=== PATIENT | female | born 2000 | race Caucasian/White ===

== ENCOUNTER 2023-07-15 11:37 | Emergency (ER) | payer OTHER, SELFPAY ==
[2023-07-15 11:43] VITALS: BP 143/88; PULSE 107; TEMP 36.7; O2SAT 99; BMI 27.8
--- NOTE | 2023-07-15 11:54 | ECG_ITS ---
[facility] Test Date: 2023-07-15 Pat Name: SANDY KELLEY Department: Room: - Gender: Female Rec Therapist: : 2000 Requested By: [id number] Order Number: [id number] Reading MD: TUSHAR FRENCH Measurements Intervals [place] Rate: 89 P: 55 IL: 162 QRS: 71 QRSD: 88 T: 17 QT: 340 QTc: 387 Interpretive Statements 1100 Sinus rhythm 1102 Sinus arrhythmia 9110 normal ECG No previous ECG available for comparison Electronically Signed On 07-17-2023 10:44:52 EDT by TUSHAR FRENCH
--- NOTE | 2023-07-15 11:58 | ED.SYNCOPE1 ---
HPI - Syncope General Chief Complaint: Headache Stated Complaint: POSSIBLE SEIZURE 2 DAYS AGO, HIT HEAD Time Seen by Provider: 07/15/23 11:41 Source: patient Mode of arrival: walk-in Limitations: no limitations History of Present Illness HPI narrative: 22-year-old female to the emergency department with chief complaint of episode of loss of consciousness. Two days ago the patient reports that she was getting off the couch to go take a shower when she stood up she felt lightheaded. Patient attempted to walk into the bathroom to get in the shower and lost consciousness and fell to the ground. Her friend who accompanies her and was witness to this and says that she hit her head on the ground. She was out for a few seconds and immediately returned back to her baseline. During a few seconds she was on the ground there were some jerking of the upper and lower extremities. Patient reports that she has had episodes of passing out before but they have never witnessed. She saw her primary care doctor who referred her to the emergency department for evaluation. Since she had her head she reports she has had a mild dull headache and some photophobia. She denies any vision changes, numbness, weakness, tingling, walking, difficulty speaking. She denies any other medical problems. She has no history of seizures. Related Data Home Medications ?Medication ?Instructions ?Recorded ?Confirmed albuterol sulfate 90 mcg/actuation 2 puff inhalation Q6H PRN 07/15/23 07/15/23 aerosol inhaler shortness of breath or wheezing Allergies Allergy/AdvReac Type Severity Reaction Status Date / Time sulfamethoxazole AdvReac Mild Unknown Verified 07/15/23 11:56 [From Bactrim] trimethoprim [From Bactrim] AdvReac Mild Unknown Verified 07/15/23 11:56 Review of Systems ROS Status of ROS 10 or more systems reviewed and unremarkable except as noted in history and below [facility] Medical History (Updated 07/15/23 @ 12:14 by Angel Rubio MD) Asthma ?J45.909 - Unspecified asthma, uncomplicated (ICD-10) Exam Narrative Exam Narrative: VITALS: I have reviewed the triage vital signs. GENERAL: Well developed, well appearing adult in no acute distress. NEURO: Alert and oriented x4. Moves all extremities. Face is symmetric and expressive. Cranial nerves II through XII grossly intact as tested. Muscular strength and sensation grossly intact upper and lower extremities bilaterally. No dysarthria. No aphasia. No ataxia. Normal gait. NIHSS 0. EYES: PERRL. No scleral icterus or conjunctival injection. No discharge. HENT: Normocephalic, atraumatic. Hearing is grossly intact. Nares grossly patent and without discharge. Mucous membranes moist. NECK: No JVD. Patient moves neck without restriction. No midline cervical tenderness. CARDIO: Rhythm regular. Normal rate. No murmur, rub, or gallop. Pulses equal bilaterally in the upper and lower extremity. No lower extremity edema. PULM: Lungs clear to auscultation in all hays. No wheezes, rales, or rhonchi. No conversational dyspnea. No splinting, stridor, or accessory muscle use. GI/: Abdomen is soft and non-tender. Normoactive bowel sounds. EXTREMITIES: Symmetric muscle bulk. No joint swelling. No clubbing, cyanosis, or deformity. SKIN: Warm and dry. Normal turgor. No rash or lesions appreciated. PSYCH: Mood, affect, and interaction is appropriate to the setting. Constitutional Vital Signs, click to edit/add: Last Vital Signs Temp 98.1 F 07/15/23 11:43 Pulse 71 07/15/23 12:43 Resp 18 07/15/23 12:43 BP 108/59 07/15/23 12:43 Pulse Ox 98 07/15/23 12:43 O2 Del Method Room Air 07/15/23 12:43 Course Vital Signs Vital signs: Vital Signs Temperature 98.1 F 07/15/23 11:43 Pulse Rate 107 H 07/15/23 11:43 Respiratory Rate 18 07/15/23 11:43 Blood Pressure 143/88 H 07/15/23 11:43 Pulse Oximetry 99 07/15/23 11:43 Oxygen Delivery Method Room Air 07/15/23 11:43 Temperature 98.1 F 07/15/23 11:43 Pulse Rate 71 07/15/23 12:43 Respiratory Rate 18 07/15/23 12:43 Blood Pressure 108/59 07/15/23 12:43 Pulse Oximetry 98 07/15/23 12:43 Oxygen Delivery Method Room Air 07/15/23 12:43 MDM - Syncope MDM Narrative Medical decision making narrative: 22-year-old female to the emergency department with chief complaint of loss of consciousness episode at home two days ago. Vitals are stable, the patient is afebrile. Neurologic examination is nonfocal. Her cervical spine is cleared by clinical decision rule. Given her ongoing headache and photophobia with severe symptoms bring her to the Emergency Room we'll proceed with a CT scan of her head. Basic labs ordered. Fluids are ordered. Patient agrees with this plan. Patient and her friend are concerned that the event the other day may have been a seizure episode. The preceding symptoms, episode itself some more like a syncopal episode than a seizure. I discussed with the patient that I believe that the odds that this was a seizure is very unlikely. CBC and chemistry are unremarkable. CT scan of her head is without acute findings. Patient feels improved after fluids. She easily and without difficulty. Discussed with patient likely syncopal episode. Sounds as though this may be a semi-recurrent issue for this patient. She'll be referred back to her PCP for further workup. Discussed rest, return precautions. All questions were answered. The patient was discharged home. Medical Records Attestation: I reviewed the patient's medical records. Lab Data Attestation: I reviewed the patient's lab results. Labs: Lab Results 07/15/23 Range/Units 12:05 WBC 8.8 (4.0-11.0) 10^3/uL RBC 4.59 (4.20-5.40) 10^6/uL Hgb 13.0 (12.0-16.0) g/dL Hct 41.0 (36.0-48.0) % MCV 89.3 (81.0-99.0) fL MCH 28.3 (26.7-34.0) pg MCHC 31.7 (29.9-35.2) g/dL RDW 12.5 (11.0-15.0) % Plt Count 183 (150-450) 10^3/uL MPV 12.3 (9.5-13.5) fL Neut % (Auto) 64.2 (43.0-75.0) % Lymph % (Auto) 28.7 (20.5-60.0) % [place] % (Auto) 5.5 (1.7-12.0) % Eos % (Auto) 0.6 L (0.9-7.0) % Baso % (Auto) 0.8 (0.2-2.0) % Neut # (Auto) 5.7 (1.4-6.5) 10^3/uL Lymph # (Auto) 2.5 (1.2-3.8) 10^3/uL [place] # (Auto) 0.5 (0.3-0.8) 10^3/uL Eos # (Auto) 0.1 (0.0-0.7) 10^3/uL Baso # (Auto) 0.1 (0.0-0.1) 10^3/uL Abs Immat Gran (auto) 0.02 (0.00-0.03) 10^3/uL Imm/Tot Granulo (auto) 0.2 (0.0-0.5) % Sodium 140 (136-145) mmol/L Potassium 4.1 (3.5-5.1) mmol/L Chloride 107 (98-107) mmol/L Carbon Dioxide 24.9 (21.0-32.0) mmol/L Anion Gap 12.2 BUN 16.0 (7.0-18.0) mg/dL Creatinine 0.73 (0.55-1.02) mg/dL Est GFR ( Amer) >60 (>=60) Est GFR (Non-Af Amer) >60 (>=60) BUN/Creatinine Ratio 21.9 Glucose 73 L (74-106) mg/dL Calcium 8.9 (8.5-10.1) mg/dL Imaging Data CT scan - head: Attestation: I have reviewed the pertinent imaging results. Radiologist's impression: ITS Impressions Head CT 07/15/23 12:21 IMPRESSION: Normal CT of the head. Electronically authenticated by: HOOD BONDS Date: 07/15/2023 12:35 ECG Data Attestation: I personally reviewed and interpreted this ECG as follows: (98 NSR No STEMI Normal QTc) Discharge Plan Discharge Stand Alone Forms: Portal Instructions Chief Complaint: Headache Clinical Impression: Concussion, Syncope and collapse Patient Disposition: Home, Self-Care Time of Disposition Decision: 12:54 Condition: Good Mode of Transportation: Private Vehicle Prescriptions / Home Meds: No Action albuterol sulfate 90 mcg/actuation HFA aerosol inhaler 2 puff INHALATION Q6H PRN (Reason: shortness of breath or wheezing) Print Language: Vietnamese Instructions: Syncope (ED), Concussion (ED) Referrals: Modesto Sweeney MD [Primary Care Provider] - 1 week
--- NOTE | 2023-07-15 12:01 | PC.NURSE ---
no goose egg found to back of head with assessment, pt denies biting tongue and neuros intact with DR barron. Pt alert and appropriate
[2023-07-15] MEDS: 0.9 % SODIUM CHLORIDE 1,000 ML 999 ML IV (12:12)
[2023-07-15 12:20] LABS: Anion Gap 12.2; BUN Creatinine Ratio 21.9; Calcium 8.9 mg/dL (8.5-10.1); Carbon Dioxide 24.9 mmol/L (21.0-32.0); Chloride 107 mmol/L (98-107); Estimated GFR (African America >60 (>=60); Estimated GFR (Non-African Ame >60 (>=60); Glucose 73 mg/dL (74-106); Potassium 4.1 mmol/L (3.5-5.1); Sodium 140 mmol/L (136-145)
--- NOTE | 2023-07-15 12:21 | CT_ITS ---
The [address] [address] Patient Name: SANDY KELLEY MRN: [facility]:[id number] date: 2000 Sex: F Assigned Patient Location: ER Current Patient Location: ER Accession/Order Number: [id number] Exam Date: 07/15/2023 12:15 Report Date: 07/15/2023 12:35 At the request of: KELBY ERAZO Procedure: CT head/brain wo con EXAM: CT head/brain wo con; [id number] REASON FOR EXAM: headache, injury COMPARISON: None. TECHNIQUE: Axial CT images of the head obtained without contrast. Multiplanar reformats generated at the scanner. Dose reduction technique used: Automated exposure control and/or adjustment of the mA and/or kV according to patient size and/or use of iterative reconstruction technique. FINDINGS: Parenchyma: -Normal parenchymal pattern. -No midline shift or mass effect. Basilar cisterns are patent. -No acute intracranial hemorrhage. -No loss of cortical ross-white differentiation to indicate acute cortical infarct. Extra-axial spaces: No extra-axial fluid collection or hemorrhage. Ventricles: Normal in size and symmetric. Paranasal sinuses: Visualized paranasal sinuses are clear. Mastoid air cells: Visualized mastoids are clear. Orbits: No acute abnormality. Osseous: No acute findings. Soft tissues: No acute abnormality. CT/CT head/brain wo con IMPRESSION: Normal CT of the head. Electronically authenticated by: HOOD BONDS Date: 07/15/2023 12:35
[2023-07-15 12:31] LABS: Basophils Absolute Auto 0.1 10^3/uL (0.0-0.1); Basophils Percent Auto 0.8 % (0.2-2.0); Eosinophils Absolute Auto 0.1 10^3/uL (0.0-0.7); Eosinophils Percent Auto 0.6 % (0.9-7.0); Immature Granulocytes Abs Auto 0.02 10^3/uL (0.00-0.03); Immature Granulocytes Pct Auto 0.2 % (0.0-0.5); Lymphocytes Absolute Auto 2.5 10^3/uL (1.2-3.8); Lymphocytes Percent Auto 28.7 % (20.5-60.0); Mean Corpuscular HGB Conc 31.7 g/dL (29.9-35.2); Mean Corpuscular Hemoglobin 28.3 pg (26.7-34.0); Mean Corpuscular Volume 89.3 fL (81.0-99.0); Mean Platelet Volume 12.3 fL (9.5-13.5); Monocytes Absolute Auto 0.5 10^3/uL (0.3-0.8); Monocytes Percent Auto 5.5 % (1.7-12.0); Neutrophils Absolute Auto 5.7 10^3/uL (1.4-6.5); Neutrophils Percent Auto 64.2 % (43.0-75.0); Platelet Count 183 10^3/uL (150-450); Red Blood Count 4.59 10^6/uL (4.20-5.40); Red Cell Distribution Width 12.5 % (11.0-15.0); White Blood Count 8.8 10^3/uL (4.0-11.0)
[2023-07-15 12:43] VITALS: BP 108/59; PULSE 71; O2SAT 98
[2023-07-15 13:24] VITALS: BP 108/54; PULSE 63; O2SAT 98
== END 2023-07-15 13:27 | disposition home or self-care (01) ==
PROVIDERS: Emergency Provider Student in an Organized Health Care Education/Training Program; PCP Family Medicine
DX: R55 Syncope and collapse (principal); S06.0X1A Concussion with loss of consciousness of 30 minutes or less, initial encounter; Z79.899 Other long term (current) drug therapy; J45.909 Unspecified asthma, uncomplicated
CPT/HCPCS: 36415; 70450; 80048; 85025; 93005; 99285

== ENCOUNTER 2023-07-20 11:10 | Outpatient (OUT) | payer OTHER, SELFPAY ==
[2023-07-20 12:08] LABS: Alanine Aminotransferase 25 U/L (14-59); Albumin Globulin Ratio 1.1; Alkaline Phosphatase 74 U/L (46-116); Anion Gap 13.5; Aspartate Amino Transferase 22 U/L (15-37); BUN Creatinine Ratio 14.3; Bilirubin Total 0.4 mg/dL (0.2-1.0); Calcium 9.5 mg/dL (8.5-10.1); Carbon Dioxide 24.8 mmol/L (21.0-32.0); Chloride 106 mmol/L (98-107); Estimated GFR (African America >60 (>=60); Estimated GFR (Non-African Ame >60 (>=60); Free T3 3.18 pg/mL (2.18-3.98); Globulin 3.7 g/dL; Glucose 85 mg/dL (74-106); Potassium 4.3 mmol/L (3.5-5.1); Sodium 140 mmol/L (136-145); Thyroid Stimulating Hormone 2.393 uIU/mL (0.358-3.740); Total Protein 7.7 g/dL (6.4-8.2)
[2023-07-20 12:22] LABS: Estimated Average Glucose 103 mg/dL; Glycohemoglobin A1C 5.2 % (4.5-6.2)
[2023-07-20 13:03] LABS: Basophils Percent Auto 0.5 % (0.2-2.0); Eosinophils Absolute Auto 0.1 10^3/uL (0.0-0.7); Eosinophils Percent Auto 0.7 % (0.9-7.0); Hematocrit 43.9 % (36.0-48.0); Hemoglobin 14.2 g/dL (12.0-16.0); Immature Granulocytes Abs Auto 0.01 10^3/uL (0.00-0.03); Immature Granulocytes Pct Auto 0.1 % (0.0-0.5); Lymphocytes Absolute Auto 2.7 10^3/uL (1.2-3.8); Lymphocytes Percent Auto 32.4 % (20.5-60.0); Mean Corpuscular HGB Conc 32.3 g/dL (29.9-35.2); Mean Corpuscular Hemoglobin 28.3 pg (26.7-34.0); Mean Corpuscular Volume 87.6 fL (81.0-99.0); Monocytes Absolute Auto 0.4 10^3/uL (0.3-0.8); Neutrophils Absolute Auto 5.1 10^3/uL (1.4-6.5); Neutrophils Percent Auto 61.3 % (43.0-75.0); Platelet Count 213 10^3/uL (150-450); Red Blood Count 5.01 10^6/uL (4.20-5.40); Red Cell Distribution Width 12.2 % (11.0-15.0); White Blood Count 8.4 10^3/uL (4.0-11.0)
[2023-07-21 12:10] LABS: Insulin 5.1 uIU/mL (2.6-24.9)
== END 2023-07-20 11:11 | disposition home or self-care (01) ==
LOC: LAB 11:15
PROVIDERS: PCP Family Medicine; Visit Provider Family Medicine
DX: R55 Syncope and collapse (principal); G43.909 Migraine, unspecified, not intractable, without status migrainosus; R25.1 Tremor, unspecified; R73.09 Other abnormal glucose; D64.9 Anemia, unspecified
CPT/HCPCS: 36415; 80053; 83036; 83525; 83540; 84436; 84443; 84481; 85025

== ENCOUNTER 2023-08-05 07:28 | Outpatient (OUT) | payer OTHER, SELFPAY ==
--- OUTSIDE RECORDS SUMMARY | 2023-08-05 07:41 | XMS_ITS | CCD ---
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 Name Role Phone Digna Sweeney Primary Care Physician [phone] ABHISHEK .DR SAWYER Primary Care Unavailable MARIO .RACHANA Consulting UnavailKATARINA Fishman Attending Unavailable KATARINA MARTINEZ Admitting Unavailable SHAQUILLE NEIL Consulting Unavailable KATARINA MARTINEZ Consulting Unavailable MATT BEAUCHAMP Attending Unavailable Allergies Allergy Classification Reported Allergen(s) Allergy Type Date of Onset Reaction(s) Facility (1 source) Sulfamethoxazole / Trimethoprim Drug Allergy 3 [facility] Repository Medications Current Medications Medication Drug Class(es) [...] 07-24-2022 BASO # 0.1 103/ul Normal 0.0-0.1 [facility] Comment on above: Performed By: #### C BC #### [facility] [address] [address] [address] Juvenal Elizondo Basophils/100 WBC (Bld) 0.5 % Normal 0.2-2.0 [facility] Comment on above: Performed By: #### C BC #### [facility] [address] [address] [address] Juvenal Elizondo EO # 0.2 103/ul Normal 0.0-0.7 [facility] Comment on above: Performed By: #### C BC #### [facility] [address] [place] [address] Dr. Juvenal Elizondo Eosinophils/100 WBC (Bld) 2.3 % Normal 0.9-7.0 [facility] Comment on above: Performed By: #### C BC #### [facility] [address] [place] [address] Dr. Juvenal Elizondo Erythrocyte distribution width (RBC) [Ratio] 12.4 % Normal 11.0-15.0 [facility] Comment on above: Performed By: #### C BC #### [facility] [address] [place] [address] Dr. Juvenal Elizondo Hematocrit (Bld) [Volume fraction] 39.5 % Normal 36.0-48.0 [facility] Comment on above: Performed By: #### C BC #### [facility] [address] [place] [address] Dr. Juvenal Elizondo Hemoglobin (Bld) [Mass/Vol] 12.7 g/dL Normal 12.0-16.0 [facility] Comment on above: Performed By: #### C BC #### [facility] [address] [place] [address] Dr. Juvenal Elizondo IG # 0.02 10e3/ul Normal 0.00-0.03 [facility] Comment on above: Performed By: #### C BC #### [facility] [address] [place] [address] Dr. Juvenal Elizondo IG % 0.2 % Normal 0.0-0.5 [facility] Comment on above: Performed By: #### C BC #### [facility] [address] [place] [address] Dr. Juvenal Elizondo LYMPH # 3.0 103/ul Normal 1.2-3.8 [facility] Comment on above: Performed By: #### C BC #### [facility] [address] [place] [address] Dr. Juvenal Elizondo Lymphocytes/100 WBC (Bld) 31.2 % Normal 20.5-60.0 [facility] Comment on above: Performed By: #### C BC #### [facility] [address] [place] [address] Dr. Juvenal Elizondo MANUAL DIFF REQ NO Normal [facility] Comment on above: Performed By: #### C BC #### [facility] [address] [place] [address] Dr. Juvenal Elizondo MCH (RBC) [Entitic mass] 28.0 pg Normal 26.7-34.0 [facility] Comment on above: Performed By: #### C BC #### [facility] [address] [place] [address] Dr. Juvenal Elizondo MCHC (RBC) [Mass/Vol] 32.2 g/dL Normal 29.9-35.2 [facility] Comment on above: Performed By: #### C BC #### [facility] [address] [place] [address] Dr. Juvenal Elizondo MCV (RBC) [Entitic vol] 87.0 fL Normal 81.0-99.0 [facility] Comment on above: Performed By: #### C BC #### [facility] [address] [place] [address] Dr. Juvenal Elizondo MONO # 0.6 103/ul Normal 0.3-0.8 [facility] Comment on above: Performed By: #### C BC #### [facility] [address] [place] [address] Dr. Juvenal Elizondo Monocytes/100 WBC (Bld) 6.2 % Normal 1.7-12.0 [facility] Comment on above: Performed By: #### C BC #### [facility] [address] [place] [address] Dr. Juvenal Elizondo NEUT # 5.7 103/ul Normal 1.4-6.5 [facility] Comment on above: Performed By: #### C BC #### [facility] [address] [place] [address] Dr. Juvenal Elizondo Neutrophils/100 WBC (Bld) 59.6 % Normal 43.0-75.0 [facility] Comment on above: Performed By: #### C BC #### [facility] [address] [place] [address] Dr. Juvenal Elizondo Platelet mean volume (Bld) [Entitic vol] 11.9 fL Normal 9.5-13.5 [facility] Comment on above: Performed By: #### C BC #### [facility] [address] [place] [address] Dr. Juvenal Elizondo PLT 223 103/ul Normal 150-450 [facility] Comment on above: Performed By: #### C BC #### [facility] [address] [place] [address] Dr. Juvenal Elizondo RBC 4.54 106/ul Normal 4.20-5.40 [facility] Comment on above: Performed By: #### C BC #### [facility] [address] [place] [address] Dr. Juvenal Elizondo WBC 9.6 103/ul Normal 4.0-11.0 [facility] Comment on above: Performed By: #### C BC #### [facility] [address] [place], [place] [id number] Dr. Juvenal Elizondo CT ABD/PELV W CONon [...] by: SHAQUILLE NEIL Date: 2022-07-24 20:10 Normal [facility] ER URINE PROFILEon 3 Bilirubin Ql (U) Negative Normal NEGATIVE [facility] Comment on above: Performed By: #### Karey SANDSR, PREGU #### [facility] [address] [place] [address] Dr. Juvenal Elizondo Clarity (U) CLEAR Normal CLEAR [facility] Comment on above: Performed By: #### E SHAVONR, PREGU #### [facility] [address] [place] [address] Dr. Juvenal Elizondo Color (U) YELLOW Normal YELLOW [facility] Comment on above: Performed By: #### E RUR, PREGU #### [facility] [address] [place] [address] Dr. Juvenal VANCE A micrscopic examination will be performed if indicated. Normal [facility] Comment on above: Performed By: #### E RUR, PREGU #### [facility] [address] [place] [address] Dr. Juvenal Elizondo Glucose Ql (U) Negative Normal NEGATIVE [facility] Comment on above: Performed By: #### E RUR, PREGU #### [facility] [address] [place] [address] Dr. Juvenal Elizondo Hemoglobin Ql (U) Negative Normal NEGATIVE [facility] Comment on above: Performed By: #### E RUR, PREGU #### [facility] [address] [place] [address] Dr. Juvenal Elizondo Ketones Ql (U) TRACE Abnormal NEGATIVE [facility] Comment on above: Performed By: #### E RUR, PREGU #### [facility] [address] [place] [address] Dr. Juvenal Elizondo LEUKOCYTES Negative Normal NEGATIVE [facility] Comment on above: Performed By: #### E RUR, PREGU #### [facility] [address] [place] [address] Dr. Juvenal Elizondo Nitrite Ql (U) Negative Normal NEGATIVE [facility] Comment on above: Performed By: #### E RUR, PREGU #### [facility] [address] [place] [address] Dr. Juvenal Elizondo pH (U) 5.5 [pH] Normal 5-9 [facility] Comment on above: Performed By: #### E RUR, PREGU #### [facility] [address] [place] [address] Dr. Juvenal Elizondo SPEC GRAVITY >=1.030 Abnormal 1.005-<=1.025 [facility] Comment on above: Performed By: #### E RUR, PREGU #### [facility] [address] [place] [address] Dr. Juvenal Elizondo UA PROTEIN Negative Normal NEGATIVE/ TRACE [facility] Comment on above: Performed By: #### E RUR, PREGU #### [facility] [address] [place] [address] Dr. Juvenal Elizondo UR MICRO IND NOT INDICATED Normal [facility] Comment on above: Performed By: #### E RUR, PREGU #### [facility] [address] [place] [address] Dr. Juvenal Elizondo Urobilinogen Qn (U) 0.2 {Kim'U}/dL Normal 0.2 - 1. 0 [facility] Comment on above: Performed By: #### E RUR, PREGU #### [facility] [address] [place] [address] Dr. Juvenal Elizondo LACTATE/LACTIC ACIDon 2022 Lactate [Moles/Vol] 1.0 mmol/L Normal 0.4-2.0 [facility] Comment on above: Performed By: #### L ACT #### [facility] [address] [place] [address] Dr. Juvenal Elizondo LIPASEon 07-24-2022 Lipase [Catalytic activity/Vol] 49.0 U/L Critically low 73.0-393.0 [facility] Comment on above: Performed By: #### C MP, LIPA #### [facility] [address] [place] [address] Dr. Juvenal Elizondo URon 07-24-2022 , QUAL Negative Normal NEGATIVE [facility] Comment on above: Performed By: #### Karey JENSEN, PREGU #### [facility] [address] [place] [address] Dr. Juvenal Elizondo PROF 14(COMP METB)on 023 Albumin [Mass/Vol] 3.5 g/dL Normal 3.4-5.0 [facility] Comment on above: Performed By: #### C MP, LIPA #### [facility] [address] [place] [address] Dr. Juvenal Elizondo Albumin/Globulin [Mass ratio] 1.1 {ratio} Normal [facility] Comment on above: Performed By: #### C MP, LIPA #### [facility] [address] [place] [address] Dr. Juvenal Elizondo ALP [Catalytic activity/Vol] 86 U/L Normal 46-116 [facility] Comment on above: Performed By: #### C MP, LIPA #### [facility] [address] [place] [address] Dr. Juvenal Elizondo ALT [Catalytic activity/Vol] 18 U/L Normal 14-59 [facility] Comment on above: Performed By: #### C MP, LIPA #### [facility] [address] [place] [address] Dr. Juvenal Elizondo Anion gap [Moles/Vol] 12.7 mmol/L Normal [facility] Comment on above: Performed By: #### C MP, LIPA #### [facility] [address] [place] [address] Dr. Juvenal Elizondo AST [Catalytic activity/Vol] 10 U/L Critically low 15-37 [facility] Comment on above: Performed By: #### C MP, LIPA #### [facility] [address] [place] [address] Dr. Juvenal Elizondo Bilirubin [Mass/Vol] 0.2 mg/dL Normal 0.2-1.0 [facility] Comment on above: Performed By: #### C MP, LIPA #### [facility] [address] [place] [address] Dr. Juvenal Elizondo Calcium [Mass/Vol] 8.5 mg/dL Normal 8.5-10.1 [facility] Comment on above: Performed By: #### C MP, LIPA #### [facility] [address] [place] [address] Dr. Juvenal Elizondo Chloride [Moles/Vol] 106 mmol/L Normal 98-107 [facility] Comment on above: Performed By: #### C MP, LIPA #### [facility] [address] [place] [address] Dr. Juvenal Elizondo CO2 [Moles/Vol] 26.2 mmol/L Normal 21.0-32.0 [facility] Comment on above: Performed By: #### C MP, LIPA #### [facility] [address] [place] [address] Dr. Juvenal Elizondo Creatinine [Mass/Vol] 0.74 mg/dL Normal 0.55-1.02 [facility] Comment on above: Performed By: #### C MP, LIPA #### [facility] [address] [place] [address] Dr. Juvenal Elizondo EGFR-AF [place] >60 Normal >=60 [facility] Comment on above: Performed By: #### C MP, LIPA #### [facility] [address] [place] [address] Dr. Juvenal Elizondo EGFR-NON AF [place] >60 Normal >=60 [facility] Comment on above: Performed By: #### C MP, LIPA #### [facility] [address] [place] [address] Dr. Juvenal Elizondo Globulin (S) [Mass/Vol] 3.3 g/dL Normal [facility] Comment on above: Performed By: #### C MP, LIPA #### [facility] [address] [place] [address] Dr. Juvenal Elizondo Glucose [Mass/Vol] 92 mg/dL Normal 74-106 [facility] Comment on above: Performed By: #### C MP, LIPA #### [facility] [address] [place] [address] Dr. Juvenal Elizondo Potassium [Moles/Vol] 3.9 mmol/L Normal 3.5-5.1 [facility] Comment on above: Performed By: #### C MP, LIPA #### [facility] [address] [place] [address] Dr. Juvenal Elizondo Protein [Mass/Vol] 6.8 g/dL Normal 6.4-8.2 [facility] Comment on above: Performed By: #### C MP, LIPA #### [facility] [address] [place] [address] Dr. Juvenal Elizonod Sodium [Moles/Vol] 141 mmol/L Normal 136-145 [facility] Comment on above: Performed By: #### C MP, LIPA #### [facility] [address] [place] [address] Dr. Juvenal Elizondo Urea nitrogen [Mass/Vol] 6.0 mg/dL Critically low 7.0-18.0 [facility] Comment on above: Performed By: #### C MP, LIPA #### [facility] [address] [place] [address] Dr. Juvenal Elizondo Urea nitrogen/Creatinine [Mass ratio] 8.1 mg/mg Normal [facility] Comment on above: Performed By: #### C MP, LIPA #### [facility] [address] [place] [address] Dr. Juvenal Elizondo PROTIMEon 07-24-2022 INR Coag (PPP) [Relative time] 0.95 {INR} Normal [facility] Comment on above: Performed By: #### P TT, PT #### [facility] [address] [place] [address] Dr. Juvenal Elizondo INR GUIDELINES SEE BELOW Normal [facility] Comment on above: Result Comment: IRIS RED INR: 2.0 - 3.0 CONDITIONS NOT LISTED BELOW 2.5 - 3.5 FOR PROSTHETIC HEART VALVE REPLACEMENT 2.5 - 3.5 RECURRENT THROMBOSIS Performed By: #### P TT, PT #### [facility] [address] [place] [address] Dr. Juvenal Elizondo PT Coag (PPP) [Time] 10.1 s Normal 9.0-11.6 [facility] Comment on above: Performed By: #### P TT, PT #### [facility] [address] [place] [address] Dr. Juvenal Elizondo PTTon 07-24-2022 aPTT Coag (Bld) [Time] 29.2 s Normal 22.3-36.2 [facility] Comment on above: Performed By: #### P TT, PT #### [facility] [address] [place] [address] Dr. Juvenal Elizondo Coding Summary.on 06-08-2021 Coding Summary. CD:[id number] Gh0bWw+PGhlYWQ+PE1FV FYoS15mmATacV7IR5uJX R5FGZBZMSRDFD1ZOX3jd VV1THrqA8FpxhSh SrsixTNuRT26XIm3XJG0 sOdbKVflvD6pkYCxK9w7 ZbLeZW42xN66YQitXOFx JhE1FzWwlunbePSc V5hwPeMzuCGxRsy+PHRh YmxlIHdpZHRoPScxMDAl NzWdxWzfOW1aTq1tFFKz LWNvbGxhcHNlOiBj f3rlKWUwPJspMV6wrCge P5HctVM7EDYgq8a3Jf34 dHI+RNNcGRL3bXamBUhb n676ByDqi7jwTWT3 hZRwLAuvTGK3V37bm2E2 YOPfBVXkJZN5uCO6eP7q zDfumbmqK6IsvPLmJwP7 NRC5fESknA1wbMwa qdpukU7yQsx+A02BTA3C EBYSZN7BWiw8O4EmEbcb dHI+FI29OEEcZU29eCUu uJQub3fdhEq2IrSi TCXjGGQ6aWsiVCtua0Hc NFFzP85pjSKxg2N7EHTe vZqktRArKkSdkNJ4oB2q QZdfultvt9bcuhmg Ucmke2gadx15mR10R25n ZBsrFGWaBOY9UNMrRZLh sZzsfd7gxY9wJl0+IDxj j1ebu5ngnIx1LeTw XZGovkWrpBgiFKG0y5Gc Ob46U2OygMfyk1GtIrb9 wd57kNNrh9M1hZL8XUiv CMJasC0zGGrbGuU4 WBZiRaAdqU31vBYaDYsi Mo2ltMvelWmaNS3jJAKn jkofGMZymI9gXCQsiPIh pEnoEC2xKRIzywjk y080XiKmFZZ3UKTniHRt V8FkdC5yPgRaHGBqBKYv G1ZwcDMfUIxwT549TSdw ZcG8JYIqpeLoX7Ju OFMieAcbOoY1l0C1Sg7B f6ApggzbIYQ3WStpWOJi OkG6KoPoJxE7Y3DrLcz0 HFGowSwhCA9iC2Dm VGAqpruiejuaeMQ2FULu AEZlmC20mAVmTUczKa1w c4A6w586ZPRiSJTlvL04 Dr7wbTelWZPmdKDR iE5hacrql2xjnxhtEzLq NBTsPEc3EYm1GRTbeBrj GjFuBZN7OpO0GWN4bBRf xL9thXchqfkudN6z Oyc+B92ogP7xUXO0AVA9 hajyYKHyueMkMQ14HE80 D1AqCovwmPPjhVJ+PGRp hsRqaWgoMU4eBgAa t4dbh0DwXQweU8BrFRIw SIurGlp4SJJpNYL2vEI2 aG4dQOFwKGcos7O0jXU1 A6ZaqoZmrl9cf9zf MTOiRNgvR84vaCJcr0V6 KYPxyST2SXUxfVutEfKa vV25Yre+LLDnsWdje5Rw Xrfkj8bpq6krtEf7 IjMwJSIgdmFsaWduPSJ0 k5LcAq75T50hXDqnAHEx SFTcVNZzVOFblSwvte2x pS6bRf1+PGNvbCB3 uVG9oF3yXPIlYfT4MWfr U167RkYqlFMuXcypm4gr x6piyLh3QfPtWLOmciYz mWtgZXA3c0BfAn81 H17jYCunDKNlPECyTWLx BLTsuWsjmq3yuJ1wHq2+ PR7xp7inyw43uM50cBI+ ATRcIMD0zIvhXGmt QMBthD2rGMzlBwC4BSSg XfFykL08pLMnYJgdHu8t aTvzbDifDP6jHAMgvfpc y244AxSef6bpJPHl rKVhNAkfFVV5X88al5K4 PBXwZABfURH7rEK2wW2f bGlnbjogbGVmdDsgdmVy ePndRFuqLFuwS336 IHRvcDsnPlBhdGllbnQg DfGpUVn4Y1FkLnx7LITw pVrlZI5trYFuOGoiWe3d rAyszEkuBQ1bKOHx juvmo935ClJdf2deHGJt cQVuLErhMXH7U71ap3D2 SCMjBIBrIPP4nYI8jQ7i bGlnbjogbGVmdDsg xwCuzMfoTAgtFJqaQ373 IHRvcDsnPkJpcnRoIERh mXX5NK87ZU72nPLrf4G8 vEO0N5VnHEBisnsn rnawrEU9PFZxDLPpfL84 Bg2lhEecZx0vKXIcMMF5 JLFgbGOrM0KpiQ2nTqXj PACvZVDfG7AjySLp YHlpM142IUajRoZ6GXKw fbLtT5ZlOETqaYopNnY4 v6E9Cu9DA5T0FH12BK29 cKKux6K6mBQ0X9Ek VGChjnytgyzajSN6EEFo YSUghC83Sh0ptDazGc0u RCCtZAA9MYZclUTvV9Wk qH6qVvGbWYCpFWTd D2GosNJcTMalT271GNqh MfP5HZOkumMjJ1KlVOAb kYjcMbT0h6Z9Vs6QZNe6 CZ92ZP67pLUks9Q3 eWH5A8AgXJKxshepstqo iSS5ZGJuVDDvlP32Vr0d jPloIu7lYRBnZJF1DEKr oHKgZ1SrxF5dBrYf MEZiZWKvT0XatRErDQfd T630YUtpFpD0AEUqjbDn I6VpKCIqvQngNlG1t6R7 Nu5GVYMkVJ40TUB3 pON0UX88FU43F1GbUgmc dGFibGU+PHRhYmxlIHdp ZHRoPScxMDAlJyBzdHls JH6xZm3kWTCyKZHp kSiycEMpUjYew4twRHLb OTktFX5ihYcsJ6CqmDR9 VGMxb6t0Zh24I49lQ7Kd dXA+PSKjeUU7mIA6 aU3bCpMbCmJ7FCnjI625 FmJshVSrDocig3kkz6sc eIj9KsY1SLFbcxNqqDkq LDA2k1BnKo11P87p IHdpZHRoPSIxNSUiIHZh dEuiut0cjZ3uJe5+PGNv wZU5eDP3xM4aJtTsCfK3 NIonB218GcBztHGg Pgiat2xkm2bwpIn1LiYf QIZvvhZorKyfRBM1p4Gn Je73T9LqtTizn3SuMkq3 jv29zBHgs3Q8uQS1 F3AbEZZlchcwsSVmjXpa BE7dNQSsbrnlYXNkjZ7h QBXhX4u1DqPeHlI0XIqv N8PbmwF9EVWrkBPz VAovCZE7Z52kj9M9BZRq YUBlFWG2oFH4gY5kuXqz bjogbGVmdDsgdmVydGlj LPpbSNugC616ATAz vKxyRHFesK5mCYMlcDFg tStlPD4aTSXsdmioZoAQ SUdIVCwgQVNITFlOTiBE XM35CF35cLSlv8N1 tMN5T0CgGAZaihlmhhon hUM5ZMXfRHRttS98rFTw CSknQm4ss1G7o356LMNq LRAqxC65Zh9ziGkd SDQroXDLtX5iquzfw7dy xruzLmVyROAbXWq3FHh1 XXGamTxvXtXfWBO6CoS9 PNV3hUJbyT3kjEfh mssthM5vBio+MDUvMTAv MjAwMjwvdGQ+PHRkIHN0 wWbrNQdbFBEacQ1vPCDi D8i3HzLbTkB4XCax L3YnMAKzizkrPe08xM1i XbXxLzC9FJzqE0FajnY7 KCYopJQvDCldUGF7F14d h5R1YTSkTSAaCJG9 zPG6mW6lyOjetigyxJPs dDsgdmVydGljYWwtYWxp F597JAEmgVczCsS2WLdb UFSwWZ97BA98wGIs e3J5fRU2O6HlGTCkkesx jldqiZG9DQCnGSVvmZ48 hHNyFJcwAt3ci1B7q705 RFOoXIUemZ84Hf4j gMrlHIPqtGVWpK4kamfg i7cicbpbGmAzAQHrKUm2 PVh4EZOinQerUvUzLDW1 TxW2ZCF3fVZimF9h qFexwfnekD2rDpa+RmVt TLxoSL25CB42kICob2Y1 rGB7Z6QaWZHkcezgyfab yBO7RDNgJGQrgK34 xRBkQMplAa6bn7O6s166 CFAkKEEzdG12Yk5tjQwb EAWfoGJUjL6kpakeb5xg cjogIzAwMDAwMDt0 FJj9DKQqdQolAkUlSUB6 CjI0XLI4bEYchR6lcYmw jwrqcD4pZep+YF7mdodi meD1NX42FW82X0Xx PjwvdGFibGU+PHRhYmxl IHdpZHRoPScxMDAlJyBz nMnfGO2dJq3qJUVvCWHi cRaasVQxYpAhk2fr DNQbDBeqYJ3gyPlgC2Oi qPF5YYLew1w3Pv44B27j L1JknYN+NHCoqML1lCG4 pE1nAcFrAyY3EJmc W185IpZztZAfRgxrh9rd k3dwoCc7RrHxTGObdeYx aQoqBQP4r3RkCf04H19x IHdpZHRoPSIyMCUi EZFzpTwwug9nuQ9hFk3+ WPGnfSH0uDG7lG3uDwRu LzS8SViwL013UvNitRBb NyfjO04tW5TxsMV+ TPQgUup1JDTyxGpuBY7o oDPtVJjuOy9cFGZ5DcGn MgZcNJjsB0InEGLvrcfr akivcHC7MWDvXSAj lX86Fv0aiPurJu0eBPXr RBB1XSFrzCBdI7VbeT3o MbLfDXQfEMUqP6VfvZPl JTboD363UByaRuA1 YEHxdkRkZ1VaRDYhrGiu BmE0u5D4Uk0XzPtagKXn BP5yTfKiDCf4V9CeNhw5 PIMwgVhuTV6wbEQm UBocSi8huQxrgLgiMY8s GDYiulopl110HhUgh9mv HWFujGXqVQakZCA0Z12h e4A6TUBbACThBLO8 iGX9nY8diRqhkijxiYFn dDsgdmVydGljYWwtYWxp O796ZBJoqZklMoBVGmg9 X9TqNcq5RLMyhEha TE9glFHzXTqxQq5zrNki pFlvXU5aXJWictvpc777 OzMrx0wqMJEstJDgULlu WYG1B03ln4F3DKRn YEVpXWZ4gQE8jE7vsYah bjogbGVmdDsgdmVydGlj DKgdAKrbU998PDYpuQgz Na7AWeu2T7LqRyo9 IYPleVtpNW5rcYUtVGgc Xs2lxYgatInbXS9yKSEo yrrxl714UzAmi9zvSRBj yCXmECetMAN5T49s x9D3QAStWVEhOAU1bFK9 oU8kkCycmelphPWswDpk apHooYjoSEnmADcyM403 IHRvcDsnPlBheWVy OjwvdGQ+KY29sv23E7Ym XvnhMgc5IEOwEYS1lUB4 wN0nTXEbJUetk7B3wZF0 J7JnblXqll5qo2fn YXBz (more content not included)... Normal [facility] Discharge Instructionson Discharge Instructions [id number] 5#1.00CD:127 Normal [facility] ED Note-Physicianon 06-07-20 22 ED Note-Physician Basic [...] Care of the patient was transitioned to in upon shift change to follow-up with blood [...] vomiting recurs or any new symptoms. Normal [facility] Comment on above: Result Comment: Elec tronically Signed By: Praful Yi M.D.\.mata\Date and Time Signed: 06/06/21 23:02 EDT Auto Diffon 06-06-2021 Basophils/100 WBC (Bld) 0.5 % Normal 0.0-2.0 [facility] Comment on above: Order Comment: Order Added by Discern Expert. Performed By: #### 2 [id number], [id number], [id number], 7758395, [id number], 1564309, [id number] #### [facility] [address] [place] [address] Basophils/Leukocytes Auto (Bld) [Pure # fraction] 0.0 E9/L Normal 0.0-0.2 [facility] Comment on above: Order Comment: Order Added by Discern Expert. Performed By: #### 2 [id number], [id number], [id number], 2617015, 85893768, 5754979, [id number] #### [facility] [address] [place] [address] Eosinophils/100 WBC (Bld) 0.5 % Normal 0.0-8.0 [facility] Comment on above: Order Comment: Order Added by Discern Expert. Performed By: #### 2 [id number], 4618254, [id number], 6110567, 32253515, 0384815, 0309217 #### [facility] [address] [place] [address] Eosinophils/Leukocyte s Auto (Bld) [Pure # fraction] 0.0 E9/L Normal 0.0-0.5 [facility] Comment on above: Order Comment: Order Added by Discern Expert. Performed By: #### 2 [id number], 9618994, 80272538, 7856817, 32077103, 3344535, 8968842 #### [facility] [address] [place] [address] Lymphocytes/100 WBC (Bld) 18.8 % Normal 14.0-50.0 [facility] Comment on above: Order Comment: Order Added by Discern Expert. Performed By: #### 2 [id number], 2423995, 19054165, 6581415, 42096898, 1656411, 9040384 #### [facility] [address] [place] [address] Lymphocytes/Leukocyte s Auto (Bld) [Pure # fraction] 1.8 E9/L Normal 1.0-4.0 [facility] Comment on above: Order Comment: Order Added by Discern Expert. Performed By: #### 2 [id number], 1182406, 66959823, 5500330, 81644026, 1831085, 6392813 #### [facility] [address] [place] [address] Monocytes/100 WBC (Bld) 7.4 % Normal 4.0-14.0 [facility] Comment on above: Order Comment: Order Added by Discern Expert. Performed By: #### 2 269139, 1440480, 25068531, 5331372, 48276940, 3609849, 5218970 #### [facility] [address] [place] [address] Monocytes/Leukocytes Auto (Bld) [Pure # fraction] 0.7 E9/L Normal 0.2-1.0 [facility] Comment on above: Order Comment: Order Added by Discern Expert. Performed By: #### 2 301881, 0602474, 67197644, 4242551, 30314092, 9210909, 0337711 #### [facility] [address] [place] [address] 50496 Neutrophils/100 WBC (Bld) 72.8 % Normal 36.0-75.0 [facility] Comment on above: Order Comment: Order Added by Discern Expert. Performed By: #### 2 015361, 8348030, 14099164, 9423502, 68457344, 3732872, 4444863 #### [facility] [address] [place] [address] 13611 Neutrophils/Leukocyte s Auto (Bld) [Pure # fraction] 7.1 E9/L Normal 2.0-7.5 [facility] Comment on above: Order Comment: Order Added by Discern Expert. Performed By: #### 2 074688, 2996735, 21146887, 6342283, 00640545, 8324279, 1615894 #### [facility] [address] [place] [address] 91750 B hCG Qualon 06-06-2021 Beta hCG Ql Negative Normal [facility] Comment on above: Performed By: #### 2 484139, 2607793, 10106548, 7527295, 96775310, 3590605, 6384480 #### [facility] [address] [place] [address] 31873 BMPon 06-06-2021 Creatinine [Mass/Vol] 0.8 mg/dL Normal 0.5-1.3 [facility] Comment on above: Performed By: #### 2 584553, 7185747, 17047517, 4684575, 65760176, 2306405, 7828046 #### [facility] [address] [place] [address] Urea nitrogen [Mass/Vol] 11 mg/dL Normal 5-21 [facility] Comment on above: Performed By: #### 2 205335, 0882440, 67912560, 4115253, 41996023, 0502706, 7280587 #### [facility] [address] [place] [address] Urea nitrogen/Creatinine [Mass ratio] 14 No Units Normal 10-20 [facility] Comment on above: Performed By: #### 2 155745, 8810752, 09721322, 3307360, 30071173, 0495893, 4251066 #### [facility] [address] [place] [address] Anion gap [Moles/Vol] 14 mmol/L Normal 6-16 [facility] Comment on above: Performed By: #### 2 197429, 9598576, 67986013, 9916757, 10328395, 4529953, 9320757 #### [facility] [address] [place] [address] Calcium [Mass/Vol] 9.2 mg/dL Normal 8.9-11.1 [facility] Comment on above: Performed By: #### 2 597451, 2893743, 49346613, 4320202, 60061556, 7554698, 5001281 #### [facility] [address] [place] [address] Chloride [Moles/Vol] 104 mmol/L Normal 101-111 [facility] Comment on above: Performed By: #### 2 963304, 2486430, 26594326, 5011240, 62047921, 2223069, 9719295 #### [facility] [address] [place] [address] CO2 [Moles/Vol] 22 mmol/L Normal 21-31 [facility] Comment on above: Performed By: #### 2 890030, 7579840, 77163293, 9994738, 54630918, 5286644, 2390764 #### [facility] [address] [place] [address] Glucose [Mass/Vol] 96 mg/dL Normal 55-199 [facility] Comment on above: Result Comment: If t his glucose result represents a fasting glucose, interpretation should refer to the following reference range: 55-99 mg/dL Performed By: #### 2 270957, 2842498, 61770795, 3156578, 04580217, 8613764, 8055027 #### [facility] [address] [place] [address] Potassium [Moles/Vol] 3.1 mmol/L Low 3.5-5.3 [facility] Comment on above: Performed By: #### 2 026805, 8546283, 76784540, 9036624, 56453490, 7358983, 3135149 #### [facility] [address] [place] [address] Sodium [Moles/Vol] 137 mmol/L Normal 135-145 [facility] Comment on above: Performed By: #### 2 661137, 0937555, 14937056, 5604275, 75011459, 7462404, 9843075 #### [facility] [address] [place] [address] CBC w/ Auto Diffon Erythrocyte distribution width (RBC) [Ratio] 13.2 % Normal 10.9-14.2 [facility] Comment on above: Performed By: #### 2 693130, 4964943, 75708726, 8517816, 48659583, 1019318, 5654207 #### [facility] [address] [place] [address] Hematocrit (Bld) [Volume fraction] 41.3 % Normal 34.0-46.0 [facility] Comment on above: Performed By: #### 2 643604, 1357072, 93563528, 8531753, 03330905, 5352078, 8796221 #### [facility] [address] [place] [address] Hemoglobin (Bld) [Mass/Vol] 13.8 g/dL Normal 12.0-16.0 [facility] Comment on above: Performed By: #### 2 630329, 7793587, 10582951, 4042572, 69818482, 9190919, 5648204 #### [facility] [address] [place] [address] MCH (RBC) [Entitic mass] 27.1 pg Normal 27.0-34.0 [facility] Comment on above: Performed By: #### 2 134725, 5085028, 61872277, 8976490, 29116128, 1136138, 7733406 #### [facility] [address] [place] [address] 46050 MCHC (RBC) [Mass/Vol] 33.4 g/dL Normal 31.4-36.0 [facility] Comment on above: Performed By: #### 2 005275, 2492298, 22609603, 9272498, 30805671, 6808371, 6011907 #### [facility] [address] [place] [address] 18649 MCV (RBC) [Entitic vol] 81.2 fL Normal 80.0-100.0 [facility] Comment on above: Performed By: #### 2 149340, 5832769, 71087069, 9938172, 56766616, 3667264, 1776344 #### [facility] [address] [place] [address] 45184 Platelet mean volume (Bld) [Entitic vol] 10.3 fL Normal 6.4-10.8 [facility] Comment on above: Performed By: #### 2 321259, 2278180, 96965798, 3270250, 10214363, 1745672, 5333437 #### [facility] [address] [place] [address] Platelets (Bld) [#/Vol] 230.0 E9/L Normal 150.0-500.0 [facility] Comment on above: Performed By: #### 2 764378, 2126742, 25678940, 9169336, 33757636, 4752803, 4892584 #### [facility] [address] [place] [address] RBC (Bld) [#/Vol] 5.1 E12/L Normal 4.3-5.9 [facility] Comment on above: Performed By: #### 2 008511, 8673200, 22495743, 0182761, 11050127, 2098094, 6257507 #### [facility] [address] [place] [address] 18079 WBC corrected for nucl RBC Auto (Bld) [#/Vol] 9.7 E9/L Normal 4.0-11.0 [facility] Comment on above: Performed By: #### 2 275957, 8160875, 48029836, 4003373, 47889665, 0707254, 1500161 #### [facility] [address] [place] [address] 22000 CHEMISTRYOrdered By: SYSTEM SYSTEM on 06-06-2021 Albumin [...] rate/Area] mL/min/1.73 m2 Normal >=59mL/min/1. 73 m2 [facility] Chem S GFR/1.73 sq M.predicted among non-blacks MDRD (S/P/Bld) [Vol rate/Area] mL/min/1.73 m2 Normal >=59mL/min/1. 73 m2 [facility] Chem S Globulin (S) [Mass/Vol] 3.6 g/dL [...] Treatmenton 05-13 Consent for Treatment [id number] 20 [id number] #[id number] Normal [facility] ED Clinical Summaryon 2021 ED Clinical Summary [place] [id number] ED Clinical Summary Person Information Name: SANDY KELLEY [place] Age: 20 Years : 2000 Sex: Female Language: Georgian PCP: Digna Sweeney MD Marital Status: Single Phone: [phone] Visit Id: Visit Reason: Nausea and vomiting; [...] 06/06/2021 21:03:05 06/06/2021 21:03:05 06/06/2021 21:03:05 ADDRESS: [address] [place] [id number] PHYS DOC NOTES: MEDICAL INFORMATION: Prescriptions Given: New Medications Printed Prescriptions ondansetron (Zofran ODT 4 mg Tab-Dis) 1 Tablets By Mouth every 6 hours as needed Nausea/Vomiting. Refills: 0. PATIENT EDUCATION INFORMATION: Instructions: Hypokalemia; Diarrhea, Adult; Nausea and Vomiting, Adult Follow up: With: Address: When: Digna Sweeney [address] [place] [address], [address] [place] [phone] Business (1) In 3 days 06/09/2021 Comments: Return to the emergency room if you develop abdominal pain, vomiting recurs or any new symptoms. DIAGNOSIS: 1:Hypokalemia; Diarrhea, unspecified; Vomiting and diarrhea Normal [facility] ED Patient Education Noteon 06-06-2021 ED Patient [...] Follow these instructions at home: ? Take kzfd-wtz-tocxooy and prescription medicines only as told by [...] kiwi, oranges, tomatoes, asparagus, and potatoes. ? Sherwood juice. ? Tomato juice. ? Red meats. [...] 02/28/2006 Document Revised: 10/11/2018 Document Reviewed: 10/11/2018 [facility] Patient Education ? 2019 [facility] Diarrhea, Adult Diarrhea is frequent loose [...] oral rehydration solution (ORS). This is an rzcs-fzn-zevrjas medicine that helps return your body to [...] sports drinks, and soda. ? Eat bland, fizd-ab-yonzau foods in small amounts as you are able. These foods include bananas, applesauce, rice, lean meats, toast, and crackers. ? Avoid alcohol. ? Avoid spicy or fatty foods. Medicines ? Take wiso-iyl-zyfixsj and prescription medicines only as told by your health care (more content not included)... Normal [facility] ED Patient Summaryon 022 ED Patient Summary [place] [id number] Patient Discharge Instructions Person Information Name: SANDY KELLEY Age: 20 Years Arrival Date: 06/06/2021 18:11:46 Discharge Diagnosis: 1:Hypokalemia; Diarrhea, unspecified; Vomiting and diarrhea Primary Care Physician: Digna Sweeney MD Provider Information Primary Provider: Alfredito Serrato DO Advanced Assistant Activities Director:None The exam and treatment you received in the Emergency Department were for an urgent problem and are not intended as complete care. It is important that you follow up with a doctor, nurse practitioner, or physician?s surgical dental assistant for ongoing care. If your symptoms [...] Follow-up Instructions: With: Address: When: Digna Sweeney [facility], [address] [place] [phone] Business (1) In 3 days 06/09/2021 Comments: [...] opioids can be used to help relieve dgbsrhga-ti-nwjbyo pain and are often prescribed following a [...] you bel (more content not included)... Normal [facility] HEMATOLOGYOrdered By: SYSTEM SYSTEM on 06-06-2021 Basophils/100 WBC (Bld) 0.5 % Normal 0.0 - 2.0 % [facility] HemeAutoSS Basophils/Leukocytes Auto (Bld) [Pure # fraction] [...] 06-06-2021 Albumin [Mass/Vol] 4.2 g/dL Normal 3.3-5.0 [facility] Comment on above: Performed By: #### 2 769321, 7066607, 72831952, 6541098, 29552654, 5130002, 3691690 #### [facility] [address] [place] [address] Albumin/Globulin (S) [Mass conc ratio] 1.2 Normal 1.1-2.2 [facility] Comment on above: Performed By: #### 2 298119, 6796822, 88866140, 1829826, 65456186, 3144976, 6965747 #### [facility] [address] [place] [address] ALP [Catalytic activity/Vol] 66 Int._Unit/L Normal 21-98 [facility] Comment on above: Performed By: #### 2 494127, 9988806, 21501548, 5787285, 50738397, 5471654, 8359211 #### [facility] [address] [place] [address] ALT No additional P-5'-P [Catalytic activity/Vol] 23 Int._Unit/L Normal 6-46 [facility] Comment on above: Performed By: #### 2 516573, 9075066, 60965934, 2526698, 27579263, 7903823, 7227923 #### [facility] [address] [place] [address] AST [Catalytic activity/Vol] 18 Int._Unit/L Normal 5-43 [facility] Comment on above: Performed By: #### 2 186677, 9886688, 65424602, 5827235, 21409179, 9860987, 0508360 #### [facility] [address] [place] [address] Bilirubin [Mass/Vol] 1.0 mg/dL Normal 0.0-1.1 [facility] Comment on above: Performed By: #### 2 789213, 7069231, 68158129, 0056462, 77652729, 8977661, 4292339 #### [facility] [address] [place] [address] Bilirubin.direct [Mass/Vol] 0.1 mg/dL Normal 0.1-0.4 [facility] Comment on above: Performed By: #### 2 311885, 3070097, 79871834, 7071723, 73036451, 8793462, 8116205 #### [facility] [address] [place] [address] 17169 Bilirubin.indirect [Mass or moles/Vol] 0.9 mg/dL Normal 0.1-0.9 [facility] Comment on above: Performed By: #### 2 394954, 1078682, 79878535, 5181346, 91933282, 2542283, 7210349 #### [facility] [address] [place] [address] 79680 Globulin (S) [Mass/Vol] 3.6 g/dL Normal 1.4-4.0 [facility] Comment on above: Performed By: #### 2 235501, 9324081, 26965873, 6968375, 47108884, 3824099, 9147144 #### [facility] [address] [place] [address] 30400 Protein [Mass/Vol] 7.8 g/dL Normal 6.0-7.8 [facility] Comment on above: Performed By: #### 2 267869, 6118674, 39155393, 4279788, 79220141, 0182989, 9782861 #### [facility] [address] [place] [address] 08502 Lipase Levelon 06-06-2021 Lipase [Catalytic activity/Vol] 24 U/L Normal 13-58 [facility] Comment on above: Performed By: #### 2 835670, 2113327, 84234031, 7705210, 34501803, 6784156, 6878003 #### [facility] [address] [place] [address]39[address] SEROLOGYOrdered By: Kurtis salinasolashanon on 06-06-2021 Beta hCG Ql Negative (06/06/21 6:34 PM) Normal [facility] Man Sero UA With Cult Reflexon 2021 Bacteria LM Ql (Urine sed) TRACE Normal Trace [facility] Comment on above: Performed By: #### 1 9161570 ####[facility] [address] [place] [address] Bilirubin Ql (U) 1+ Abnormal Negative [facility] Comment on above: Performed By: #### 1 6991119 ####[facility] [address] [place] [address] Clarity (U) SL CLOUDY Invalid Interpretation Code [facility] Comment on above: Performed By: #### 1 2142390 ####[facility] [address] [place] [address] Color (U) DARK YELLO Invalid Interpretation Code [facility] Comment on above: Performed By: #### 1 9734241 ####[facility] [address] [place] [address] Epithelial cells.squamous LM.HPF (Urine sed) [#/Area] 5-8 Normal 0-2 [facility] Comment on above: Performed By: #### 1 3219137 ####[facility] [address] [place] [address] Glucose Test strip (U) [Mass/Vol] Negative Normal Negative [facility] Comment on above: Performed By: #### 1 4038596 ####[facility] [address] [place] [address] Hemoglobin Ql (U) 3+ Abnormal Negative [facility] Comment on above: Performed By: #### 1 6866145 ####[facility] [address] [place] [address] Ketones (U) [Mass/Vol] 1+ Abnormal Negative [facility] Comment on above: Performed By: #### 1 1951195 ####[facility] [address] [place] [address] [place].plasma/Lithiu m.RBC (Bld) [Mass ratio] 4-20 Normal 0-3 [facility] Comment on above: Performed By: #### 1 7228789 ####[address] [address] Mucus Ql (Urine sed) 2+ Normal [facility] Comment on above: Performed By: #### 1 2424874 ####[address] [address] Nitrite Ql (U) Negative Normal Negative [facility] Comment on above: Performed By: #### 1 7685947 ####[address] [address] pH (U) 6.0 [pH] Invalid Interpretation Code 5.0-9.0 [facility] Comment on above: Performed By: #### 1 5765126 ####[address] [address] Protein (U) [Mass/Vol] TRACE Abnormal Negative [facility] Comment on above: Performed By: #### 1 0675815 ####[address] [address] Specific gravity (U) [Rel density] 1.025 Invalid Interpretation Code 1.005-1.030 [facility] Comment on above: Performed By: #### 1 0307304 ####[address] [address] Type of Urine collection method Clean Catch Normal [facility] Comment on above: Performed By: #### 1 8370315 ####[address] [address] Urobilinogen Qn (U) 0.2 {Kim'U}/dL Normal 0.0-1.0 [facility] Comment on above: Performed By: #### 1 3445852 ####[address] [address] WBC Auto Ql (U) Negative Normal Negative [facility] Comment on above: Performed By: #### 1 6084669 ####[facility] [address] [place] [address] WBC LM.HPF (Urine sed) [#/Area] 0-5 Normal 0-5 [facility] Comment on above: Performed By: #### 1 2180277 ####[facility] [address] [place] [address] URINALYSISOrdered By: Kurtis Cohen on 06-06-2021 Bacteria [...] Interpretation Code Negative [facility] UA Auto SS [place].plasma/Lithiu m.RBC (Bld) [Mass ratio] 4-20 /HPF Normal [...] PM) Invalid Interpretation Code 1.005 - 1.030 [facility] UA Auto SS UA Spec Desc Clean Catch (06/06/21 7:20 PM) Normal [facility] UA Auto SS Urobilinogen Qn (U) 0.0371479 {Kim'U}/dL Normal 0.0 - 1.0 EU/dL [facility] UA Auto SS WBC Auto Ql (U) Negative (06/06/21 7:20 PM) Normal Negative [facility] UA Auto SS WBC LM.HPF (Urine sed) [#/Area] 0-5 /HPF Normal 0-5/HPF [facility] UA Auto SS eGFRon 06-06-2021 GFR/1.73 sq M.predicted among blacks MDRD (S/P/Bld) [Vol rate/Area] mL/min/{1.73_m2} Normal >=59 [facility] Comment on above: Order Comment: Order added by Discern Expert. Result Comment: eGFR is race adjusted. AA=. Performed By: #### 2 197841, 7646163, 41232970, 6748214, 16344144, 5083793, 5905758 #### [facility] [address] [place] [address] GFR/1.73 sq M.predicted among non-blacks MDRD (S/P/Bld) [Vol rate/Area] mL/min/{1.73_m2} Normal >=59 [facility] Comment on above: Order Comment: Order added by Discern Expert. Result Comment: [employer] tim kidney disease could be indicated at eGFR's of less than 60 mL/min/1.73m2. Kidney failure is indicated at less than 15 mL/min/1.73m2. Performed By: #### 2 727198, 4025993, 44105424, 9351571, 63264356, 6714390, 6296000 #### [facility] [address] [place] [address] Vital Signs Date Time Vital Sign Value Performing Clinician Kelly rowan 06-06-2021 21:00-0400 Blood Pressure Location Alfredito Sheffield [facility] 06-06-2021 21:00-0400 Diastolic blood pressure 95 mm[Hg] Alfredito Sheffield [facility] 06-06-2021 21:00-0400 Heart rate 85 /min Alfredito Boswelle [facility] 06-06-2021 21:00-0400 Mean blood pressure 107 mm[Hg] Alfredito Boswelle [facility] 06-06-2021 21:00-0400 Respiratory rate 16 /min Alfredito Boswelle [facility] 06-06-2021 21:00-0400 SaO2% (BldA) [Mass fraction] 99 % Alfredito Boswelle [facility] 06-06-2021 21:00-0400 Systolic blood pressure 130 mm[Hg] Alfredito Boswelle [facility] 06-06-2021 20:00-0400 Blood Pressure Location Alfredito Boswelle [facility] 06-06-2021 20:00-0400 Diastolic blood pressure 70 mm[Hg] Alfredito Boswelle [facility] 06-06-2021 20:00-0400 Heart rate 82 /min Alfredito Boswelle [facility] 06-06-2021 20:00-0400 Mean blood pressure 84 mm[Hg] Alfredito Boswelle [facility] 06-06-2021 20:00-0400 SaO2% (BldA) [Mass fraction] 98 % Alfredito Boswelle [facility] 06-06-2021 20:00-0400 Systolic blood pressure 113 mm[Hg] Alfredito Boswelle [facility] 06-06-2021 19:00-0400 Blood Pressure Location Alfredito Boswelle [facility] 06-06-2021 19:00-0400 Diastolic blood pressure 67 mm[Hg] Alfredito Serrato [facility] 06-06-2021 19:00-0400 Mean blood pressure 80 mm[Hg] Alfredito Serrato [facility] 06-06-2021 19:00-0400 SaO2% (BldA) [Mass fraction] 97 % Alfredito Serrato [facility] 06-06-2021 19:00-0400 Systolic blood pressure 106 mm[Hg] Alfredito Serrato [facility] 06-06-2021 18:15-0400 Body temperature 98.42 [degF] Alfredito Serrato [facility] 06-06-2021 18:15-0400 Heart rate 122 /min Alfredito Rojelio [facility] Encounters Encounter Date Encounter Type Care Provider Facility Start: 2023 End: 2023 ambulatory MATT BEAUCHAMP Not Available Start: 07-24-2022 End: 07-24-[address] DIGNA SWEENEY . Facility: Start: 06-06-2021 End: 06-06-2021 Emergency department patient visit Alfredito Sheffield [facility] Payers Date Payer Category Payer Unknown [id number] 2000 Unknown [id number] 1958 Unknown [id number] Social History Date Type Detail Facility Start: 06-06-2021 Tobacco smoking status Light t obacco smoker (finding) [facility] Sex Assigned At Female [facility] Discharge instructions 06-06-2021 Note Date [...] hospital. Follow these instructions at home: Take xfvd-jef-ucnycic and prescription medicines only as told by [...] cantaloupe, kiwi, oranges, tomatoes, asparagus, and potatoes. ?Sherwood juice. ?Tomato juice. ?Red meats. ?Yogurt. Keep [...] 02/28/2006 Document Revised: 10/11/2018 Document Reviewed: 10/11/2018 [facility] Patient Education 2020 [employer]. 06/06/2021 21:03:06 Diarrhea, Adult Diarrhea, Adult Diarrhea [...] oral rehydration solution (ORS). This is an xgvg-mku-mmrmgjd medicine that helps return your body to [...] drinks, sports drinks, and soda. Eat bland, kvdj-rb-tahyme foods in small amounts as you are able. These foods include bananas, applesauce, rice, lean meats, toast, and crackers. Avoid alcohol. Avoid spicy or fatty foods. Medicines Take iplx-vcn-oshrcua and prescription medicines only as told by your health care provider. If you were prescribed an antibiotic medicine, take it as told by your health care provider. Do not stop using the antibiotic even if you start to feel better. General instructions Wash your hands often using soap and water. If soap and water are not available, use a hand forest pathology professor. Others in the household should wash their [...] and water are not available, use hand forest pathology professor. Contact a health care provider if your diarrhea gets worse or you have new symptoms. Get help right away if you have signs of dehydration. This information is not intended to replace advice given to you by your health care provider. Make sure you discuss any questions you have with your health care provider. Document Released: 02/18/2003 Document Revised: 07/17/2019 Document Reviewed: 08/04/2018 [facility] Patient Education 2020 [employer]. 06/06/2021 21:03:06 Nausea and Vomiting, Adult Nausea [...] water added (diluted fruit juice). Eat bland, vrvi-rg-huzhaa foods in small amounts as you are able. These foods include bananas, applesauce, rice, lean meats, toast, and crackers. Avoid fluids that contain a lot of sugar or caffeine, such as energy drinks, sports drinks, and soda. Avoid alcohol. Avoid spicy or fatty foods. General instructions Take zqih-bdb-mhuoaak and prescription medicines only as told by your health care provider. Drink enough fluid to keep your urine pale yellow. Wash your hands often using soap and water. If soap and water are not available, use hand forest pathology professor. Make sure that all people in your [...] eating and drinking to prevent dehydration. Take rqvl-bdk-[id number] and prescription medicines only as told by [...] 02/28/2006 Document Revised: 06/22/2019 Document Reviewed: 08/08/2018 [employer] Patient Education 2020 [facility] Follow Up Care 06/06/2021 18:13:49 With:Digna Sweeney Address: [address] [place] [phone] (1) When:06/09/2021 20:43:56 Comments:Return to the emergency room if you develop abdominal pain, vomiting recurs or any new symptoms. [facility] Evaluation + Plan note 06-06-2021 Note [...] Care of the patient was transitioned to in upon shift change to follow-up with blood [...] pain, vomiting recurs or any new symptoms. [facility] Hospital course Narrative Note Date & Type Note Facility Hospital course Narrative No data available for this section [facility] Summary Purpose Family History No Family History Records FoundNo Family History Records FoundNo Family History Records Found Advance Directives No Advanced Directives Records FoundNo Advanced Directives Records FoundNo Advanced Directives Records Found Additional Source Comments INFORMATION SOURCE (unrecogn ized section and content) DATE CREATED AUTHOR 06/09/2021 [facility] DATE CREATED AUTHOR AUTHOR'S ORGANIZ ATION 07[facility]28[facility]2022 [facility] DATE CREATED AUTHOR AUTHOR'S ORGANIZ ATION 07/23/2023 [facility] FOR RECORDS PERTAINING TO PATIENTS WHO ARE [...] BE BASED ON THE PRIMARY CLINICAL RECORDS. [employer] provides no warranty or guarantee of the accuracy or completeness of information in this document.
--- NOTE | 2023-08-05 08:45 | MR_ITS ---
The [address] [address] Patient Name: SANDY KELLEY MRN: [id number] date: 2000 Sex: F Assigned Patient Location: MRI Current Patient Location: Accession/Order Number: [id number] Exam Date: 08/05/2023 09:05 Report Date: 08/06/2023 16:30 At the request of: MATT BEAUCHAMP Procedure: MR head/brain wo/w con MR head/brain wo/w con, 08/05/2023 9:05 AM EDT INDICATION: Syncope R55, Convulsions, unspecified type R56.9 COMPARISON: There is no appropriate prior study for comparison. TECHNIQUE: Multiplanar, multisequential MRI images of brain were obtained without and with injection of contrast. FINDINGS: The cerebral sulci as well as ventricular system are appropriate for age. There is no restricted diffusion. Left frontal focus of T2 shining through is noted. No abnormal enhancing lesion is noted. There is no intracranial mass, mass effect, midline shift, intra or extra-axial fluid collection or large hemorrhage. Right frontal parasagittal prominence likely due to underlying passage of the vein (image 10 series 12 001). Normal flow-void in the intracranial vessels is noted. Bilateral retention cysts within the maxillary sinuses are noted. The visualized portions of orbits, mastoid air cells as well as remainder of paranasal sinuses are unremarkable. MR/MR head/brain wo/w con IMPRESSION: No acute or significant intracranial process is noted. Bilateral retention cysts within the maxillary sinuses. Electronically authenticated by: EDUARD ZAIDI Date: 08/06/2023 16:30
== END 2023-08-05 07:29 | disposition home or self-care (01) ==
LOC: MRI 07:28
PROVIDERS: PCP Family Medicine; Visit Provider Psychiatry & Neurology Neurology
DX: R55 Syncope and collapse (principal); R56.9 Unspecified convulsions
CPT/HCPCS: 70553; 95819; A9575

== ENCOUNTER 2023-08-05 07:31 | Outpatient (OUT) | payer OTHER, SELFPAY ==
--- OUTSIDE RECORDS SUMMARY | 2023-08-05 07:41 | XMS_ITS | CCD ---
Author Organization 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 Name Role Phone Digna Sweeney Primary Care Physician ABHISHEK .DR SAWYER Primary Care Unavailable MARIO .RACHANA Consulting UnavailKATARINA Fishman Attending Unavailable KATARINA MARTINEZ Admitting Unavailable SHAQUILLE NEIL Consulting Unavailable KATARINA MARTINEZ Consulting Unavailable MATT BEAUCHAMP Attending Unavailable Allergies Allergy Classification Reported Allergen(s) Allergy Type Date of Onset Reaction(s) Facility (1 source) Sulfamethoxazole / Trimethoprim Drug Allergy 3 [facility] Repository Medications Current Medications Medication Drug Class(es) Dates Sig (Normalized) Sig (Original) Zofran ODT 4 mg Tab-Dis (1 source) Start: 06-06-2021 take 1 tablet by mouth every six hours as needed for nausea Zofran ODT 4 mg Tab-Dis 4 mg = 1 tab(s), Oral, q6hr, PRN Nausea/Vomiting, # 12 tab(s), Refills(s) 0 Start Date: 06/06/21 Status: Ordered Problems Problem Classification Problem Date Documented Da te Episodic/Chronic Abdominal pain (4 sources) Unspecified abdominal pain; Translations: [UNSPECIFIED ABDOMINAL PAIN] Onset: 07-24-2022 Episodic Fluid and electrolyte disorders (1 source) Hypokalemia; Translations: [Hypokalemia] Onset: 06-06-2021 Episodic Nausea and vomiting (1 source) Vomiting; Translations: [Vomiting, unspecified] Onset: 06-06-2021 Episodic Other gastrointestinal disorders (1 source) Diarrhea; Translations: [Diarrhea, unspecified] Onset: 06-06-2021 Episodic Substance-related disorders (1 source) Smoker 06-06-2021 Chronic Comment on above: Added secondary to d ocumentation in Social History. Results Test Name Value Interpretation Reference Range Facility CBC AUTO DIFFon 07-24-2022 BASO # 0.1 103/ul Normal 0.0-0.1 [facility] Comment on above: Performed By: #### C BC #### [facility] [address] [address] [address] Juvenal Elizondo Basophils/100 WBC (Bld) 0.5 % Normal 0.2-2.0 [facility] Comment on above: Performed By: #### C BC #### [facility] [address] [address] [address] Juvenal Elizondo EO # 0.2 103/ul Normal 0.0-0.7 [facility] Comment on above: Performed By: #### C BC #### [facility] [address] [place] [address] Dr. Juvenal Elizondo Eosinophils/100 WBC (Bld) 2.3 % Normal 0.9-7.0 [facility] Comment on above: Performed By: #### C BC #### [facility] [address] [place] [address] Dr. Juvenal Elizondo Erythrocyte distribution width (RBC) [Ratio] 12.4 % Normal 11.0-15.0 [facility] Comment on above: Performed By: #### C BC #### [facility] [address] [place] [address] Dr. Juvenal Elizondo Hematocrit (Bld) [Volume fraction] 39.5 % Normal 36.0-48.0 [facility] Comment on above: Performed By: #### C BC #### [facility] [address] [place] [address] Dr. Juvenal Elizondo Hemoglobin (Bld) [Mass/Vol] 12.7 g/dL Normal 12.0-16.0 [facility] Comment on above: Performed By: #### C BC #### [facility] [address] [place] [address] Dr. Juvenal Elizondo IG # 0.02 10e3/ul Normal 0.00-0.03 [facility] Comment on above: Performed By: #### C BC #### [facility] [address] [place] [address] Dr. Juvenal Elizondo IG % 0.2 % Normal 0.0-0.5 [facility] Comment on above: Performed By: #### C BC #### [facility] [address] [place] [address] Dr. Juvenal Elizondo LYMPH # 3.0 103/ul Normal 1.2-3.8 [facility] Comment on above: Performed By: #### C BC #### [facility] [address] [place] [address] Dr. Juvenal Elziondo Lymphocytes/100 WBC (Bld) 31.2 % Normal 20.5-60.0 [facility] Comment on above: Performed By: #### C BC #### [facility] [address] [place] [address] Dr. Juvenal Elizondo MANUAL DIFF REQ NO Normal [facility] Comment on above: Performed By: #### C BC #### [facility] [address] [place] [address] Dr. Juvenal Elizondo MCH (RBC) [Entitic mass] 28.0 pg Normal 26.7-34.0 [facility] Comment on above: Performed By: #### C BC #### [facility] [address] [place] [address] Dr. Juvenal Elizondo MCHC (RBC) [Mass/Vol] 32.2 g/dL Normal 29.9-35.2 [facility] Comment on above: Performed By: #### C BC #### [facility] [address] [place] [address] Dr. Juvenal Elizondo MCV (RBC) [Entitic vol] 87.0 fL Normal 81.0-99.0 [facility] Comment on above: Performed By: #### C BC #### [facility] [address] [place] [address] Dr. Juvenal Elizondo MONO # 0.6 103/ul Normal 0.3-0.8 [facility] Comment on above: Performed By: #### C BC #### [facility] [address] [place] [address] Dr. Juvenal Elizondo Monocytes/100 WBC (Bld) 6.2 % Normal 1.7-12.0 [facility] Comment on above: Performed By: #### C BC #### [facility] [address] [place] [address] Dr. Juvenal Elizondo NEUT # 5.7 103/ul Normal 1.4-6.5 [facility] Comment on above: Performed By: #### C BC #### [facility] [address] [place] [address] Dr. Juvenal Elizondo Neutrophils/100 WBC (Bld) 59.6 % Normal 43.0-75.0 [facility] Comment on above: Performed By: #### C BC #### [facility] [address] [place] [address] Dr. Juvenal Elizondo Platelet mean volume (Bld) [Entitic vol] 11.9 fL Normal 9.5-13.5 [facility] Comment on above: Performed By: #### C BC #### [facility] [address] [place] [address] Dr. Juvenal Elizondo PLT 223 103/ul Normal 150-450 [facility] Comment on above: Performed By: #### C BC #### [facility] [address] [place] [address] Dr. Juvenal Elizondo RBC 4.54 106/ul Normal 4.20-5.40 [facility] Comment on above: Performed By: #### C BC #### [facility] [address] [place] [address] Dr. Juvenal Elizondo WBC 9.6 103/ul Normal 4.0-11.0 [facility] Comment on above: Performed By: #### C BC #### [facility] [address] [place], [place] [id number] Dr. Juvenal Elizondo CT ABD/PELV W CONon 07-25-[address] ABD/PELV W CON EXAM: CT ABD/PELV W CON Comparison: None available. CLINICAL INDICATION: Right lower quadrant pain. TECHNIQUE: Axial images through the abdomen and pelvis were obtained with intravenous contrast. Coronal and sagittal reconstructions were obtained. Dose reduction techniques were achieved by using automated exposure control and/or adjustment of mA and/or kV according to patient size and/or use of iterative reconstruction technique. CONTRAST: 100 mL of Omnipaque 300 was administered intravenously. FINDINGS: LOWER CHEST: Minimal dependent/bibasilar atelectasis. LIVER: Unremarkable. GALLBLADDER: Unremarkable. BILE DUCTS: Unremarkable. PANCREAS: Unremarkable. SPLEEN: Nonspecific splenomegaly up to 14.5 cm. ADRENALS: Unremarkable. KIDNEYS/URETERS: Unremarkable. BLADDER: Unremarkable. PELVIC STRUCTURES: Unremarkable. GI TRACT: Evaluation of bowel limited by fecal contents and lack of distention. No evidence of bowel obstruction. Nondilated appendix without significant adjacent inflammatory stranding or definite evidence of acute appendicitis. Appendix measures approximately 6 mm in diameter with a thin enhancing wall and minimal left any adjacent fat induration. VASCULAR STRUCTURES: Unremarkable. LYMPH NODES: No pathologic lymphadenopathy by CT size criteria. PERITONEUM: No free air. No abscess. SOFT TISSUES: Unremarkable. OSSEOUS STRUCTURES: No acute osseous abnormality. No suspicious osseous lesions. IMPRESSION: No acute process identified. No definite evidence of acute appendicitis. Nonspecific splenomegaly. Electronically authenticated by: SHAQUILLE NEIL Date: 2022-07-24 20:10 Normal [facility] ER URINE PROFILEon 3 Bilirubin Ql (U) Negative Normal NEGATIVE [facility] Comment on above: Performed By: #### Karey SANDSR, PREGU #### [facility] [address] [place] [address] Dr. Juvenal Elizondo Clarity (U) CLEAR Normal CLEAR [facility] Comment on above: Performed By: #### E SHAVONR, PREGU #### [facility] [address] [place] [address] Dr. Juvenal Elizondo Color (U) YELLOW Normal YELLOW [facility] Comment on above: Performed By: #### E RUR, PREGU #### [facility] [address] [place] [address] Dr. Juvenal VANCE A micrscopic examination will be performed if indicated. Normal [facility] Comment on above: Performed By: #### E RUR, PREGU #### [facility] [address] [place] [address] Dr. Juvenal Elizondo Glucose Ql (U) Negative Normal NEGATIVE [facility] Comment on above: Performed By: #### E RUR, PREGU #### [facility] [address] [place] [address] Dr. Juvenal Elizondo Hemoglobin Ql (U) Negative Normal NEGATIVE [facility] Comment on above: Performed By: #### E RUR, PREGU #### [facility] [address] [place] [address] Dr. Juvenal Elizondo Ketones Ql (U) TRACE Abnormal NEGATIVE [facility] Comment on above: Performed By: #### E RUR, PREGU #### [facility] [address] [place] [address] Dr. Juvenal Elizondo LEUKOCYTES Negative Normal NEGATIVE [facility] Comment on above: Performed By: #### E RUR, PREGU #### [facility] [address] [place] [address] Dr. Juvenal Elizondo Nitrite Ql (U) Negative Normal NEGATIVE [facility] Comment on above: Performed By: #### E RUR, PREGU #### [facility] [address] [place] [address] Dr. Juvenal Elizondo pH (U) 5.5 [pH] Normal 5-9 [facility] Comment on above: Performed By: #### E RUR, PREGU #### [facility] [address] [place] [address] Dr. Juvenal Elizondo SPEC GRAVITY >=1.030 Abnormal 1.005-<=1.025 [facility] Comment on above: Performed By: #### E RUR, PREGU #### [facility] [address] [place] [address] Dr. Juvenal Elizondo UA PROTEIN Negative Normal NEGATIVE/ TRACE [facility] Comment on above: Performed By: #### E RUR, PREGU #### [facility] [address] [place] [address] Dr. Juvenal Elizondo UR MICRO IND NOT INDICATED Normal [facility] Comment on above: Performed By: #### E RUR, PREGU #### [facility] [address] [place] [address] Dr. Juvenal Elizondo Urobilinogen Qn (U) 0.2 {Kim'U}/dL Normal 0.2 - 1. 0 [facility] Comment on above: Performed By: #### E RUR, PREGU #### [facility] [address] [place] [address] Dr. Juvenal Elizondo LACTATE/LACTIC ACIDon 2022 Lactate [Moles/Vol] 1.0 mmol/L Normal 0.4-2.0 [facility] Comment on above: Performed By: #### L ACT #### [facility] [address] [place] [address] Dr. Juvenal Elizondo LIPASEon 07-24-2022 Lipase [Catalytic activity/Vol] 49.0 U/L Critically low 73.0-393.0 [facility] Comment on above: Performed By: #### C MP, LIPA #### [facility] [address] [place] [address] Dr. Juvenal Elizondo URon 07-24-2022 , QUAL Negative Normal NEGATIVE [facility] Comment on above: Performed By: #### Karey JENSEN, PREGU #### [facility] [address] [place] [address] Dr. Juvenal Elizondo PROF 14(COMP METB)on 023 Albumin [Mass/Vol] 3.5 g/dL Normal 3.4-5.0 [facility] Comment on above: Performed By: #### C MP, LIPA #### [facility] [address] [place] [address] Dr. Juvenal Elizondo Albumin/Globulin [Mass ratio] 1.1 {ratio} Normal [facility] Comment on above: Performed By: #### C MP, LIPA #### [facility] [address] [place] [address] Dr. Juvenal Elizondo ALP [Catalytic activity/Vol] 86 U/L Normal 46-116 [facility] Comment on above: Performed By: #### C MP, LIPA #### [facility] [address] [place] [address] Dr. Juvenal Elizondo ALT [Catalytic activity/Vol] 18 U/L Normal 14-59 [facility] Comment on above: Performed By: #### C MP, LIPA #### [facility] [address] [place] [address] Dr. Juvenal Elizondo Anion gap [Moles/Vol] 12.7 mmol/L Normal [facility] Comment on above: Performed By: #### C MP, LIPA #### [facility] [address] [place] [address] Dr. Juvenal Elizondo AST [Catalytic activity/Vol] 10 U/L Critically low 15-37 [facility] Comment on above: Performed By: #### C MP, LIPA #### [facility] [address] [place] [address] Dr. Juvenal Elizondo Bilirubin [Mass/Vol] 0.2 mg/dL Normal 0.2-1.0 [facility] Comment on above: Performed By: #### C MP, LIPA #### [facility] [address] [place] [address] Dr. Juvenal Elizondo Calcium [Mass/Vol] 8.5 mg/dL Normal 8.5-10.1 [facility] Comment on above: Performed By: #### C MP, LIPA #### [facility] [address] [place] [address] Dr. Juvenal Elizondo Chloride [Moles/Vol] 106 mmol/L Normal 98-107 [facility] Comment on above: Performed By: #### C MP, LIPA #### [facility] [address] [place] [address] Dr. Juvenal Elizondo CO2 [Moles/Vol] 26.2 mmol/L Normal 21.0-32.0 [facility] Comment on above: Performed By: #### C MP, LIPA #### [facility] [address] [place] [address] Dr. Juvenal Elizondo Creatinine [Mass/Vol] 0.74 mg/dL Normal 0.55-1.02 [facility] Comment on above: Performed By: #### C MP, LIPA #### [facility] [address] [place] [address] Dr. Juvenal Elizondo EGFR-AF CENTRAL AFRICAN >60 Normal >=60 [facility] Comment on above: Performed By: #### C MP, LIPA #### [facility] [address] [place] [address] Dr. Juvenal Elizondo EGFR-NON AF CENTRAL AFRICAN >60 Normal >=60 [facility] Comment on above: Performed By: #### C MP, LIPA #### [facility] [address] [place] [address] Dr. Juvenal Elizondo Globulin (S) [Mass/Vol] 3.3 g/dL Normal [facility] Comment on above: Performed By: #### C MP, LIPA #### [facility] [address] [place] [address] Dr. Juvenal Elizondo Glucose [Mass/Vol] 92 mg/dL Normal 74-106 [facility] Comment on above: Performed By: #### C MP, LIPA #### [facility] [address] [place] [address] Dr. Juvenal Elizondo Potassium [Moles/Vol] 3.9 mmol/L Normal 3.5-5.1 [facility] Comment on above: Performed By: #### C MP, LIPA #### [facility] [address] [place] [address] Dr. Juvenal Elizondo Protein [Mass/Vol] 6.8 g/dL Normal 6.4-8.2 [facility] Comment on above: Performed By: #### C MP, LIPA #### [facility] [address] [place] [address] Dr. Juvenal Elizondo Sodium [Moles/Vol] 141 mmol/L Normal 136-145 [facility] Comment on above: Performed By: #### C MP, LIPA #### [facility] [address] [place] [address] Dr. Juvenal Elizondo Urea nitrogen [Mass/Vol] 6.0 mg/dL Critically low 7.0-18.0 [facility] Comment on above: Performed By: #### C MP, LIPA #### [facility] [address] [place] [address] Dr. Juvenal Elizondo Urea nitrogen/Creatinine [Mass ratio] 8.1 mg/mg Normal [facility] Comment on above: Performed By: #### C MP, LIPA #### [facility] [address] [place] [address] Dr. Juvenal Elizondo PROTIMEon 07-24-2022 INR Coag (PPP) [Relative time] 0.95 {INR} Normal [facility] Comment on above: Performed By: #### P TT, PT #### [facility] [address] [place] [address] Dr. Juvenal Elizondo INR GUIDELINES SEE BELOW Normal [facility] Comment on above: Result Comment: IRIS RED INR: 2.0 - 3.0 CONDITIONS NOT LISTED BELOW 2.5 - 3.5 FOR PROSTHETIC HEART VALVE REPLACEMENT 2.5 - 3.5 RECURRENT THROMBOSIS Performed By: #### P TT, PT #### [facility] [address] [place] [address] Dr. Juvenal Elizondo PT Coag (PPP) [Time] 10.1 s Normal 9.0-11.6 [facility] Comment on above: Performed By: #### P TT, PT #### [facility] [address] [place] [address] Dr. Juvenal Elizondo PTTon 07-24-2022 aPTT Coag (Bld) [Time] 29.2 s Normal 22.3-36.2 [facility] Comment on above: Performed By: #### P TT, PT #### [facility] [address] [place] [address] Dr. Juvenal Elizondo Coding Summary.on 06-08-2021 Coding Summary. CD:[id number] Gh0bWw+PGhlYWQ+PE1FV SBmR68ifYEazP1NW7lIG A2DHLGRPLSGWA3LID8fe QH5EHefM3DercAv OuxnzUEbLT40DGj3SAP9 gQhmUSygzZ1jbXAtU3r7 IzXsZV59iO04MIxvSEHg CwH3PmHtyczntTOm Y9ehLmBooPYqHkk+PHRh YmxlIHdpZHRoPScxMDAl BiSaaCleDR1sKz2pDQZt LWNvbGxhcHNlOiBj c9daASFsPDjsBI3jrUys Z3RtqPK1WLCxe9j3Fp22 dHI+MUNdYMT4sMevCNhc x062PdMwr3ysTPP8 yYJwUQzrTNV5Q67uh5J2 EWOvNHEjQKK9uKO2zD0x jTqnygwtK9SqoBJeLtL2 MYL3tKZucO4wyMno uisusK5jYob+I07BXE2Y WLRPKE3JFzg5J5MbKlhx dHI+XM32SEWrFW66dQBx wQByd6hxwMf6FhCt CVWxITD5tQvrAEcyn8Gb NZDkK24vnORsr7S2RUXg fKnucTOoAnBwoHM8nK9p ZIyhitomc4foymba Ldcgd1ggzn10wL79I29r YMwoJZIpLKQ8UGUvTNMp fEtwek4rmA7bCs6+IDxj o2iiv0iboJc4DlBo STEseiSxlDjjCIC1f3Eu Zc11Z0ZnoRwda8IzXaw7 yp45aXSmv3F5qEN4AHol PPIjhF7dWBdtJfN7 HKBnMcFzxH78aRQkDMpp Nv9rtFjrwMytQL3hQTBm mqsbZMXfqD9aRKTloCNk gZchEY4xFMSlybku c817DuHrYNV6WMSonJIn Q3DvkL5gDgBpRVUiSIDg P1FsbKAdEHjnO613ZMdg UjD2GBXebcCsX3St QBKjnVhyUjV9w0G3Zv8W a8QxydfuYKF4PRtxNQCs ItJ2SmHsWcJ4R1TwZzd7 YGQduBgoIL4xX3Al FHDgnzltbqrytYI2HUSe FFXxkS33eSFgAIydLt2u d8A6l777CDEyEEOvuV38 Tt7bkKgqNMIvaGKU gM1hrupmu3hzjidyWtQd RISiSAk1LMz3CXDusLmi PsDfEVV5MvJ2YFI6pIMr vG7coCesvbqwfL9c Oyc+D03ceC4iBXY3XTI6 orqyXLUiyyJtQD48SG70 D3AmTydbpSNudNI+PGRp liYevZjoOC1jZeQe q6agl7OwXFeoZ4YyAWDl QHflKom3LJVhPJK7wFR3 pO9zRRAiWWpel6Q5bGG1 K6PhlbXieh6ge0zr VKOaFWfvH92pbHAcy1S1 WHYwsED5PAYxjQqlAuHr bU79Qvc+WAXqhVvoz9Aj Mbhdf5yja5royGj3 IjMwJSIgdmFsaWduPSJ0 b1BwFh27L15lIJfnQTTi BAXvWEQiGGLuzUqpkb8k xC7jZp2+PGNvbCB3 zJV2aN4vTKAvKkK0OZoa W938QnEcyCCqShqpz7is v8qekLc9HvLdUAZrrvPp eBjvXZI2o3FnMx51 W63hZIdcKQGbSTPbRBLd KZJfsEikbi3teV2fRh4+ DF4bj0qkan30gU57wKJ+ AOWlWUD3eMhmPZng WITbmS1yUKeuLlF8PPHs MpTboT40rGHqQPvzJc4t aXyzzNblNH0dIJOrbrtp q801SiFsd4ihFWOe xMYiTCskJOD4G58si7P8 TDIgPSZjMJN8iPB4qS0o bGlnbjogbGVmdDsgdmVy gHmsSVxoEDhjG323 IHRvcDsnPlBhdGllbnQg BfBiHRf0T0MqJvw4PHDc oDgsMD3yxHAgNUssLz5s vSxuxZujAU2bLDVz gkgvr731JlUch6idIQLb rIHjOLxrMTW0R62nz8U2 ZFWkDFTvIGP1eDI8zW4r bGlnbjogbGVmdDsg utLnyMelPUhhPIqlO139 IHRvcDsnPkJpcnRoIERh xNC0TC54ZE21xIUwf2T2 vZG0K2VkOQYgmfwf gsfoxYN8DXGhHHIxcK80 Kc9tjKahKl8eMEGyVJI8 NPFatGUqD6UfxY6iMdOv BZWpQKRnU7OyzBPr MWenZ818QXzoCdZ4DIJn xvUhN1EqGIDarYddNnE1 s3Y9Fa0OX2V8VR38DA69 aCNlb6E1yIM6L3Mi GOFdkqrfdwizdUC1MJRo OXMsaZ93Dp1qrTprOy5i ORWeKNJ1EENgeJBnA6Mo xQ1xOkVoEEZvDSJo L3LsoQGsTOpwF939DXlg EzT7NPHeojYxC4SvHRRl xNpiIhM4x2P5Bv6EPXg4 EX47WF28zDDmt6U4 lRS2E8HqOJQgnuqtmmlx uAU5IBHeUVPyjR96Xg0z yQxaWe1kBFIkOLS0AHMk jZSbH6VxbU5qXdLk KJYzVEMbD6YasQZtWGrv P998BQtcMuW4RFNkvyLl W4UeACSjzVfmTcI4b8Z4 Bf8PIMHeLU42JTD4 uZR2SS10XK68S9MfQmhr dGFibGU+PHRhYmxlIHdp ZHRoPScxMDAlJyBzdHls IT9hTx9nGCGlTVVz jWmwfZYiRyNmq2krOJMt DFduJG2akUbxN6YhqNN6 BLEgz6v4Fy92Y14xL3Bb dXA+VTEzxLJ5kDS3 pH1uVeFbPpE3KAwuY126 ScQzkEHrCvsfr8fzq0mp dJd2XgU0DFIijyIilHoi NAH1m1LpQf09A33p IHdpZHRoPSIxNSUiIHZh rUxtof8wgO9jWz5+PGNv nRE8qKO5rW0uHgXzLmO7 GNxjR820OgJitHNc Mtntg9obb5chuWo7RgGu WTAsrxNemGrkXNP2e1Ik An04S9YgiDltb5KnBzn6 bu13dJYxb6R1rDW7 T7CxJJTyjskaeJYuyVab ZJ6sIMWozznoYIMasL7i QTRyL4t3BcNnLrW6EXxn X5QtpwG6SFMklWQw QNlqAKC7N06az5X9IRLq KNJkHNJ5kNK7tV1wlApu bjogbGVmdDsgdmVydGlj AIjlDGuvK663QIQy gIgpCUMvnK8lBECqpPFv sAkjRE3uHRNnzgmrRcQQ SUdIVCwgQVNITFlOTiBE WB93ZH99qIXby4J9 qSF5A0RbOMKwduijsvzg rVA4DVFkJMOyiQ82rGEq CHyjZk7fj3Q9w605PPJg EHQjvA94Og5cbLih GGOtdSCMyQ1otsqwu6cv hsvsNjVeHUUnNAn5OUe8 BJXguYshLiVoDSR2OqX8 DBM2sYUuyA6vnSnl cnetmG5bIti+MDUvMTAv MjAwMjwvdGQ+PHRkIHN0 rGblYVhhVTZmdX4eEEVo Y0c4EcKdIfK2LPrr T5PmLYTedjjaXf28eR5v GtLkJcR3RPagQ9AfjtQ3 HVMhwNSbCHirUPH0E56c p5Z5DDKbUWWhMZR0 gOF1zV0bxQmjvsstmICn dDsgdmVydGljYWwtYWxp C813QAStqZwzKwR5UHvc JHFjUI18XW45eJLr j2H5fUV6D9BkCWMdwzzq jnbavVL3MZCkEPKzaW16 iHBwXLozHz9ds0D3p878 MKYjGAZvqO28Yw2d lSbwSGUqbWXApR9opuod f7hkrklwIxUtGYBhDPz4 IXa8XNTopEenSeLpMBW5 FvB2LJQ0pWRrdC0b oTlqyslulM4lYeb+RmVt EEsvVW28FJ84pVGpc9D3 aMF3L9TxXDHonpbrhtjz pKX6DUSpIDZjqR10 wJKhQYgjBa4zp9P2k125 VTRtUJIsyG74Pl5eyLtb EQZreHDOaB8idykgg9zu cjogIzAwMDAwMDt0 GOi9RFBchVrxXkUzVWO5 XwB2GBJ7zGMczE4faFcr eqhojL5zXcl+BC6lhyxp zqB4WJ58MI51A1Bu PjwvdGFibGU+PHRhYmxl IHdpZHRoPScxMDAlJyBz hArlVD6zGa8wFGQaFKZv dLspjWErYbXjy4oj CSHzKRmuUC3mdUsyZ0Nr oML4TGIhx9c7Jc15Q95m F3EivPR+KJYqoII3kYM0 gL7yFnQmUbA8SErt J828QvTwdIYzKpzkf4ic a9pcyTu2RrPuXVWpmwLu oEbjUWL4y6ElJp39K05j IHdpZHRoPSIyMCUi DVIomLezhl9psH2uBc7+ JUAieKM1lXM4hD7oMwFh LvC9KHwsY552ChQywVFf VsvyF70gP2JbvBB+ SSKvKfj8PWHsbDbaGJ3s wZMoQGrlHm5lPWG8XxNn IpWmNSjjW2McDPYlvfyf misppLU6WCAfRAYu aD22Jy1qoWfgDi6hEWYz HEW5VEPhlGIsC5WdlG8e JdQzDDSdSMVlT1RqyGFu LDumU467JHloUgD8 PYIlzmAtD0KtLONxoJiu OdN0h9V0Yk6LwNfuiABk IW2rQfNuMVf9X7RdMta7 UNWotVeyEM5ubRRz UZpjFc5qgLmzrLhnJR4z PQSuoveth691BwNlp2dz DPChmLFvQMzaJFU5B03d v4G1RIZrAGZiIMJ8 fPU6xA0dlRhipoipcRWo dDsgdmVydGljYWwtYWxp H274VAPtcTbbIwVOWnt8 P6UsSis4LLItkRbb YB7dhFMcEYlqAv6hrTyi gOhxLD0rAAKlazbtv659 DrHly3nkHJOeyITkSFzj XYQ1S53wy1P2AONy AIHfVOD7yMN2yX4afGmx bjogbGVmdDsgdmVydGlj HLggYSljT069YVFfrUcx Ov5FDem9D0BkYer5 TRZfnYmbIF4elHPyFDwy Ok2uvEbbiSpmFD3jTKTe xycvw409KvYpy4utNKCl lKVyIGhvLAK2M31v p6X4ZCNzYRLdCOX3sXK5 tE4ouFzybniuiAJqpGlu shNppQqaCEjdKUteA934 IHRvcDsnPlBheWVy OjwvdGQ+GS73tq94I3Wn UvlxQgg4TRLeAWO8dOR1 jV1fVUFpAVlxl5P5vNC2 A9DwwiEwhs0bc7dn YXBz (more content not included)... Normal [facility] Discharge Instructionson Discharge Instructions [id number]#1.00CD:127 Normal [facility] ED Note-Physicianon 06-07-20 22 ED Note-Physician Basic Information Time Seen: Alfredito Serrato DO 06/06/2021 18:19 Chief Complaint pt coms to the er w/ c/o of vomiting and diarrhea since lastnight. states shes unable to keep anything down. Denies any abdominal pain. History of Present Illness 20 female presents the emergency department with nausea and vomiting and diarrhea. Patient states she is had this over the last 24 hours and has intractable symptoms. She tried soap Gatorade at home without relief of symptoms as she continues to have intractable vomiting. She denies any abdominal pain no prior abdominal surgeries denies any chance of stating that she is currently on her menstrual cycle. Patient denies any urinary or vaginal symptoms. No associated fevers no possible bad food exposures no other known sick contacts. No other aggravating or relieving factors no other associated symptoms no other prior treatments or complaints. Family: Reviewed and noncontributory Social: lives at home Review of systems negative unless otherwise specified in the HPI. Physical Exam Vitals & Measurements T: 36.9 ?C(Oral) HR: 122(Peripheral) RR: 16 BP: 151/103 SpO2: 97% HT: 165 cm HT: 165.0 cm WT: 104 kg WT: 104.0 kg BMI: 38.2 General: The patient appears well and in no apparent distress. Patient is resting comfortably on cart. Skin: Warm, dry, no pallor noted. Head: Normocephalic, atraumatic Neck: No JVD Eye: PERRLA, EOMI ENT: Moist mucus membranes Cardiovascular: Slightly tachycardic rates regular rhythm with normal peripheral perfusion Respiratory: No respiratory distress no accessory muscle use no obvious audible wheezing Chest Wall: no deformity Musculoskeletal: normal ROM, no deformity, no swelling GI: Soft no obvious distention. No rebound or rigidity. No guarding. No tenderness. Neurological: A&O moves all extremities equal strength and symmetry Psychiatric: Cooperative and appropriate Medical Decision Making Work-up has been ordered here and patient is treated here with IV fluids and medication for her nausea. Patient signed out to the oncoming physician for final disposition and treatment plan. Assessment/Plan Diarrhea, unspecified (R19.7: Diarrhea, unspecified) Vomiting and diarrhea (R11.10: Vomiting, unspecified) Orders: ondansetron, 4 mg = 2 mL, Injection, IV Push, Once, Stop date 06/06/21 18:23:00 EDT, STAT, Start date 06/06/21 18:23:00 EDT, 06/06/21 18:23:00 EDT Sodium Chloride 0.9% intravenous solution, 1,000 mL, Soln-IV, IV, Once, Stop date 06/06/21 18:23:00 EDT, STAT, Start date 06/06/21 18:23:00 EDT, Infuse over 61, minute(s) Basic Metabolic Panel Beta hCG Qual CBC w/ Auto Diff Hepatic Function Panel Lipase Level UA With Cult Reflex Disposition Plan Discharge Prescription List Prescriptions No active prescription medications Follow-up No qualifying data available Problem List/Past Medical History Ongoing No qualifying data Historical No qualifying data Medications Inpatient NS 1000 ml Bolus, 1000 mL, IV, Once ondansetron 4 mg/2 mL Inj, 4 mg= 2 mL, IV Push, Once Home No active home medications Allergies No active allergies Lab Results No qualifying data available. Diagnostic Results No qualifying data available. Care of the patient was transitioned to nm upon shift change to follow-up with blood work and final disposition. She has presented with vomiting and diarrhea. More likely her symptoms are due to viral gastroenteritis. Blood work reviewed and showed hypokalemia?replaced . More likely due to vomiting and diarrhea. Her nausea improved after Zofran and IV fluids. Will discharge patient home with prescription for Zofran and follow-up with her primary care. She is instructed to return to the emergency room if she develops abdominal pain, vomiting recurs or any new symptoms. Normal [facility] Comment on above: Result Comment: Elec tronically Signed By: Praful Yi M.D.\.mata\Date and Time Signed: 06/06/21 23:02 EDT Auto Diffon 06-06-2021 Basophils/100 WBC (Bld) 0.5 % Normal 0.0-2.0 [facility] Comment on above: Order Comment: Order Added by Discern Expert. Performed By: #### 2 170679, 6962261, 58986437, 1072334, 95782136, 6899026, 4009337 #### [facility] [address] [place] [address] Basophils/Leukocytes Auto (Bld) [Pure # fraction] 0.0 E9/L Normal 0.0-0.2 [facility] Comment on above: Order Comment: Order Added by Discern Expert. Performed By: #### 2 731785, 0076447, 64409708, 1215451, 96395283, 6353611, 3588565 #### [facility] [address] [place] [address] Eosinophils/100 WBC (Bld) 0.5 % Normal 0.0-8.0 [facility] Comment on above: Order Comment: Order Added by Discern Expert. Performed By: #### 2 435364, 2524492, 71124396, 4642924, 37124843, 4331831, 8157910 #### [facility] [address] [place] [address] Eosinophils/Leukocyte s Auto (Bld) [Pure # fraction] 0.0 E9/L Normal 0.0-0.5 [facility] Comment on above: Order Comment: Order Added by Discern Expert. Performed By: #### 2 735537, 4753666, 72523246, 1323769, 16354085, 8981883, 7656125 #### [facility] [address] [place] [address] Lymphocytes/100 WBC (Bld) 18.8 % Normal 14.0-50.0 [facility] Comment on above: Order Comment: Order Added by Discern Expert. Performed By: #### 2 611113, 4691152, 04249977, 4755616, 39174367, 1909814, 4039778 #### [facility] [address] [place] [address] Lymphocytes/Leukocyte s Auto (Bld) [Pure # fraction] 1.8 E9/L Normal 1.0-4.0 [facility] Comment on above: Order Comment: Order Added by Discern Expert. Performed By: #### 2 820961, 5884121, 99298785, 9162444, 44764736, 3081424, 4427847 #### [facility] [address] [place] [address] Monocytes/100 WBC (Bld) 7.4 % Normal 4.0-14.0 [facility] Comment on above: Order Comment: Order Added by Discern Expert. Performed By: #### 2 244877, 7842157, 33566788, 6571787, 00748393, 8577865, 5340075 #### [facility] [address] [place] [address] Monocytes/Leukocytes Auto (Bld) [Pure # fraction] 0.7 E9/L Normal 0.2-1.0 [facility] Comment on above: Order Comment: Order Added by Discern Expert. Performed By: #### 2 278250, 1074817, 38325932, 8845654, 07116493, 6889303, 6163601 #### [facility] [address] [place] [address] Neutrophils/100 WBC (Bld) 72.8 % Normal 36.0-75.0 [facility] Comment on above: Order Comment: Order Added by Discern Expert. Performed By: #### 2 095715, 4237501, 68516686, 4842199, 58329288, 1949446, 1512585 #### [facility] [address] [place] [address] Neutrophils/Leukocyte s Auto (Bld) [Pure # fraction] 7.1 E9/L Normal 2.0-7.5 [facility] Comment on above: Order Comment: Order Added by Discern Expert. Performed By: #### 2 293972, 9029349, 49069942, 6589810, 06280334, 5101113, 3983460 #### [facility] [address] [place] [address] B hCG Qualon 06-06-2021 Beta hCG Ql Negative Normal [facility] Comment on above: Performed By: #### 2 359690, 2632935, 20521875, 1451815, 96932979, 4273223, 0558943 #### [facility] [address] [place] [address] BMPon 06-06-2021 Creatinine [Mass/Vol] 0.8 mg/dL Normal 0.5-1.3 [facility] Comment on above: Performed By: #### 2 093837, 5219827, 16193641, 8449264, 94224124, 9884132, 4454204 #### [facility] [address] [place] [address] Urea nitrogen [Mass/Vol] 11 mg/dL Normal 5-21 [facility] Comment on above: Performed By: #### 2 967099, 4486558, 72169516, 4328485, 66854252, 1904298, 2168579 #### [facility] [address] [place] [address] Urea nitrogen/Creatinine [Mass ratio] 14 No Units Normal 10-20 [facility] Comment on above: Performed By: #### 2 373715, 3442685, 43025142, 0517190, 43840018, 5593010, 4744862 #### [facility] [address] [place] [address] Anion gap [Moles/Vol] 14 mmol/L Normal 6-16 [facility] Comment on above: Performed By: #### 2 857545, 4995961, 62971560, 4770423, 47267363, 3309394, 4399414 #### [facility] [address] [place] [address] Calcium [Mass/Vol] 9.2 mg/dL Normal 8.9-11.1 [facility] Comment on above: Performed By: #### 2 879900, 1065845, 11841344, 4023905, 33521398, 9775762, 4407798 #### [facility] [address] [place] [address] Chloride [Moles/Vol] 104 mmol/L Normal 101-111 [facility] Comment on above: Performed By: #### 2 927247, 4915799, 70674392, 4817392, 42640578, 9539260, 7476019 #### [facility] [address] [place] [address] CO2 [Moles/Vol] 22 mmol/L Normal 21-31 [facility] Comment on above: Performed By: #### 2 241729, 3695359, 46562130, 1761726, 78551830, 0744445, 3816380 #### [facility] [address] [place] [address] Glucose [Mass/Vol] 96 mg/dL Normal 55-199 [facility] Comment on above: Result Comment: If t his glucose result represents a fasting glucose, interpretation should refer to the following reference range: 55-99 mg/dL Performed By: #### 2 779792, 2311439, 12221704, 5042683, 25648063, 9409502, 8476327 #### [facility] [address] [place] [address] Potassium [Moles/Vol] 3.1 mmol/L Low 3.5-5.3 [facility] Comment on above: Performed By: #### 2 514589, 8304844, 81338963, 3265267, 20443941, 6623950, 3896766 #### [facility] [address] [place] [address] Sodium [Moles/Vol] 137 mmol/L Normal 135-145 [facility] Comment on above: Performed By: #### 2 696262, 0512219, 77901395, 9677782, 25564802, 2814027, 1046312 #### [facility] [address] [place] [address] CBC w/ Auto Diffon Erythrocyte distribution width (RBC) [Ratio] 13.2 % Normal 10.9-14.2 [facility] Comment on above: Performed By: #### 2 365169, 6082739, 81756816, 3694362, 90168966, 6725122, 3052730 #### [facility] [address] [place] [address] Hematocrit (Bld) [Volume fraction] 41.3 % Normal 34.0-46.0 [facility] Comment on above: Performed By: #### 2 590283, 9889080, 00932889, 8904454, 99105592, 8756531, 6787862 #### [facility] [address] [place] [address] Hemoglobin (Bld) [Mass/Vol] 13.8 g/dL Normal 12.0-16.0 [facility] Comment on above: Performed By: #### 2 888358, 0886998, 63985998, 8544977, 08828739, 0919095, 9153536 #### [facility] [address] [place] [address] MCH (RBC) [Entitic mass] 27.1 pg Normal 27.0-34.0 [facility] Comment on above: Performed By: #### 2 841435, 5198578, 40836767, 8899751, 54196652, 2627042, 5991449 #### [facility] [address] [place] [address] MCHC (RBC) [Mass/Vol] 33.4 g/dL Normal 31.4-36.0 [facility] Comment on above: Performed By: #### 2 574762, 7215324, 47259451, 3544935, 39941055, 2729411, 4255942 #### [facility] [address] [place] [address] MCV (RBC) [Entitic vol] 81.2 fL Normal 80.0-100.0 [facility] Comment on above: Performed By: #### 2 167983, 6071705, 03502923, 5038216, 56847589, 2942051, 2504706 #### [facility] [address] [place] [address] Platelet mean volume (Bld) [Entitic vol] 10.3 fL Normal 6.4-10.8 [facility] Comment on above: Performed By: #### 2 061682, 1689974, 89001529, 2639871, 30274289, 1592039, 0362574 #### [facility] [address] [place] [address] Platelets (Bld) [#/Vol] 230.0 E9/L Normal 150.0-500.0 [facility] Comment on above: Performed By: #### 2 195937, 7869756, 37679130, 1156942, 47161258, 2351062, 4749687 #### [facility] [address] [place] [address] RBC (Bld) [#/Vol] 5.1 E12/L Normal 4.3-5.9 [facility] Comment on above: Performed By: #### 2 309906, 8599530, 59091481, 8572936, 73141576, 4711609, 5626605 #### [facility] [address] [place] [address] WBC corrected for nucl RBC Auto (Bld) [#/Vol] 9.7 E9/L Normal 4.0-11.0 [facility] Comment on above: Performed By: #### 2 737333, 1936714, 10937945, 6236482, 71359233, 9201085, 8987282 #### [facility] [address] [place] [address] CHEMISTRYOrdered By: SYSTEM SYSTEM on 06-06-2021 Albumin [Mass/Vol] 4.2 g/dL Normal 3.3 - 5.0 gm/dL [facility] Albumin/Globulin [Mass ratio] 1.2 {ratio} Normal 1.1 - 2.2 [facility] ALP [Catalytic activity/Vol] 66 [iU]/d Normal 21 - 98 Int._Unit/L [facility] ALT No additional P-5'-P [Catalytic activity/Vol] 23 [iU]/d Normal 6 - 46 Int._Unit/L [facility] Anion gap [Moles/Vol] 14 mmol/L Normal 6 - 16 mEq/L [facility] AST [Catalytic activity/Vol] 18 [iU]/d Normal 5 - 43 Int._Unit/L [facility] Bilirubin [Mass/Vol] 1.0 mg/dL Normal 0.0 - 1 .1 mg/dL [facility] Bilirubin.direct [Mass/Vol] 0.1 mg/dL Normal 0.1 - 0.4 mg/dL [facility] Bilirubin.indirect [Mass or moles/Vol] 0.9 mg/dL Normal 0.1 - 0.9 mg/dL [facility] Calcium [Mass/Vol] 9.2 mg/dL Normal 8.9 - 11. 1 mg/dL [facility] Chloride [Moles/Vol] 104 mmol/L Normal 101 - 1 11 mmol/L [facility] CO2 [Moles/Vol] 22 mmol/L Normal 21 - 31 mmol/L [facility] Creatinine [Mass/Vol] 0.8 mg/dL Normal 0.5 - 1.3 mg/dL [facility] GFR/1.73 sq M.predicted among blacks MDRD (S/P/Bld) [Vol rate/Area] mL/min/1.73 m2 Normal >=59mL/min/1. 73 m2 [facility] Chem S GFR/1.73 sq M.predicted among non-blacks MDRD (S/P/Bld) [Vol rate/Area] mL/min/1.73 m2 Normal >=59mL/min/1. 73 m2 [facility] Chem S Globulin (S) [Mass/Vol] 3.6 g/dL Normal 1.4 - 4.0 gm/dL [facility] Glucose [Mass/Vol] 96 mg/dL Normal 55 - 199 mg/dL [facility] Lipase [Catalytic activity/Vol] 24 U/L Normal 13 - 58 unit/L [facility] Potassium [Moles/Vol] 3.1 mmol/L Low 3.5 - 5.3 mmol/L [facility] Protein [Mass/Vol] 7.8 g/dL Normal 6.0 - 7.8 gm/dL [facility] Sodium [Moles/Vol] 137 mmol/L Normal 135 - 145 mmol/L [facility] Urea nitrogen [Mass/Vol] 11 mg/dL Normal 5 - 21 mg/dL [facility] Urea nitrogen/Creatinine [Mass ratio] 14 mg/mg Normal 10 - 20 [facility] Consent for Treatmenton 05-13 Consent for Treatment [id number] #1.00CD:127 Normal [facility] ED Clinical Summaryon 2021 ED Clinical Summary [place] [id number] ED Clinical Summary Person Information Name: SANDY KELLEY [place] Age: 20 Years : 2000 Sex: Female Language: Macanese PCP: Digna Sweeney MD Marital Status: Single Phone: [phone] Visit Id: Visit Reason: Nausea and vomiting; VOMITING AND FATIGUE Speciality: Acuity: 3 Enc Type: Emergency Med Service: Emergency Arrival: 06/06/2021 18:11:46 Discharge: 06/06/2021 21:02:58 LOS: 000 02:51 Checkin: 06/06/2021 18:11:46 Checkout: 06/06/2021 21:02:58 Dispo Type: Home (Routine DC) EVENTS: Event Name Event Status Request Date/Time Start Date/Time Complete Date/Time Arrive Complete 06/06/2021 18:11:46 06/06/2021 18:11:46 06/06/2021 18:11:46 Document Home Meds Request 06/06/2021 18:11:46 Triage Complete 06/06/2021 18:11:46 06/06/2021 18:21:52 06/06/2021 18:21:52 Bed Assign Complete 06/06/2021 18:15:14 06/06/2021 18:15:14 06/06/2021 18:15:14 Dr Exam Complete 06/06/2021 18:15:14 06/06/2021 18:19:01 06/06/2021 18:19:01 RN Exam Complete 06/06/2021 18:15:14 06/06/2021 19:54:27 06/06/2021 19:54:27 Registration Complete 06/06/2021 18:19:01 06/06/2021 18:33:18 06/06/2021 18:33:18 Meds Admin Complete 06/06/2021 18:24:08 06/06/2021 19:16:10 Pending Labs Complete 06/06/2021 18:24:08 06/06/2021 19:42:25 Lab Complete 06/06/2021 18:24:08 06/06/2021 19:42:25 Urine Collect Complete 06/06/2021 18:24:09 06/06/2021 19:42:25 Reg Complete Request 06/06/2021 18:33:18 Reg Bed Request Complete 06/06/2021 18:33:18 06/06/2021 18:33:18 06/06/2021 18:33:18 Pending Labs Complete 06/06/2021 18:53:10 06/06/2021 18:53:10 06/06/2021 19:17:46 Lab Complete 06/06/2021 18:53:11 06/06/2021 18:53:11 06/06/2021 19:17:46 Dr Exam Complete 06/06/2021 19:01:40 06/06/2021 19:01:40 06/06/2021 19:01:40 Registration Complete 06/06/2021 19:01:40 06/06/2021 20:00:04 06/06/2021 20:00:04 Pending Labs Complete 06/06/2021 19:01:54 06/06/2021 19:01:54 06/06/2021 19:02:03 Lab Complete 06/06/2021 19:01:54 06/06/2021 19:01:54 06/06/2021 19:02:03 Pending Labs Cancel 06/06/2021 19:14:44 06/06/2021 19:30:34 Lab Cancel 06/06/2021 19:14:44 06/06/2021 19:30:34 Urine Collect Cancel 06/06/2021 19:14:44 06/06/2021 19:30:34 Meds Admin Complete 06/06/2021 19:41:22 06/06/2021 20:04:35 Discharge Complete 06/06/2021 20:44:07 06/06/2021 21:03:05 06/06/2021 21:03:05 Transfer Complete 06/06/2021 21:03:05 06/06/2021 21:03:05 06/06/2021 21:03:05 ADDRESS: [address] [place] [id number] PHYS DOC NOTES: MEDICAL INFORMATION: Prescriptions Given: New Medications Printed Prescriptions ondansetron (Zofran ODT 4 mg Tab-Dis) 1 Tablets By Mouth every 6 hours as needed Nausea/Vomiting. Refills: 0. PATIENT EDUCATION INFORMATION: Instructions: Hypokalemia; Diarrhea, Adult; Nausea and Vomiting, Adult Follow up: With: Address: When: Digna Sweeney [address] [place] [address], [address] [place] [phone] Business (1) In 3 days 06/09/2021 Comments: Return to the emergency room if you develop abdominal pain, vomiting recurs or any new symptoms. DIAGNOSIS: 1:Hypokalemia; Diarrhea, unspecified; Vomiting and diarrhea Normal [facility] ED Patient Education Noteon 06-06-2021 ED Patient Education Note Gastroenterology Hypokalemia Hypokalemia means that the amount of potassium in the blood is lower than normal. Potassium is a chemical (electrolyte) that helps regulate the amount of fluid in the body. It also stimulates muscle tightening (contraction) and helps nerves work properly. Normally, most of the body's potassium is inside cells, and only a very small amount is in the blood. Because the amount in the blood is so small, minor changes to potassium levels in the blood can be life-threatening. What are the causes? This condition may be caused by: ? Antibiotic medicine. ? Diarrhea or vomiting. Taking too much of a medicine that helps you have a bowel movement (laxative) can cause diarrhea and lead to hypokalemia. ? Chronic kidney disease (CKD). ? Medicines that help the body get rid of excess fluid (diuretics). ? Eating disorders, such as bulimia. ? Low magnesium levels in the body. ? Sweating a lot. What are the signs or symptoms? Symptoms of this condition include: ? Weakness. ? Constipation. ? Fatigue. ? Muscle cramps. ? Mental confusion. ? Skipped heartbeats or irregular heartbeat (palpitations). ? Tingling or numbness. How is this diagnosed? This condition is diagnosed with a blood test. How is this treated? This condition may be treated by: ? Taking potassium supplements by mouth. ? Adjusting the medicines that you take. ? Eating more foods that contain a lot of potassium. If your potassium level is very low, you may need to get potassium through an IV and be monitored in the hospital. Follow these instructions at home: ? Take sgzq-wyp-gxnhygc and prescription medicines only as told by your health care provider. This includes vitamins and supplements. ? Eat a healthy diet. A healthy diet includes fresh fruits and vegetables, whole grains, healthy fats, and lean proteins. ? If instructed, eat more foods that contain a lot of potassium. This includes: ? Nuts, such as peanuts and pistachios. ? Seeds, such as sunflower seeds and pumpkin seeds. ? Peas, lentils, and beck[place] beans. ? Whole grain and bran cereals and breads. ? Fresh fruits and vegetables, such as apricots, avocado, bananas, cantaloupe, kiwi, oranges, tomatoes, asparagus, and potatoes. ? [place] juice. ? Tomato juice. ? Red meats. ? Yogurt. ? Keep all follow-up visits as told by your health care provider. This is important. Contact a health care provider if you: ? Have weakness that gets worse. ? Feel your heart pounding or racing. ? Vomit. ? Have diarrhea. ? Have diabetes (diabetes mellitus) and you have trouble keeping your blood sugar (glucose) in your target range. Get help right away if you: ? Have chest pain. ? Have shortness of breath. ? Have vomiting or diarrhea that lasts for more than 2 days. ? Faint. Summary ? Hypokalemia means that the amount of potassium in the blood is lower than normal. ? This condition is diagnosed with a blood test. ? Hypokalemia may be treated by taking potassium supplements, adjusting the medicines that you take, or eating more foods that are high in potassium. ? If your potassium level is very low, you may need to get potassium through an IV and be monitored in the hospital. This information is not intended to replace advice given to you by your health care provider. Make sure you discuss any questions you have with your health care provider. Document Released: 02/28/2006 Document Revised: 10/11/2018 Document Reviewed: 10/11/2018 [employer] Patient Education ? 2019 [employer] Diarrhea, Adult Diarrhea is frequent loose and watery bowel movements. Diarrhea can make you feel weak and cause you to become dehydrated. Dehydration can make you tired and thirsty, cause you to have a dry mouth, and decrease how often you urinate. Diarrhea typically lasts 2?3 days. However, it can last longer if it is a sign of something more serious. It is important to treat your diarrhea as told by your health care provider. Follow these instructions at home: Eating and drinking Follow these recommendations as told by your health care provider: ? Take an oral rehydration solution (ORS). This is an tkmc-jsd-jqoglji medicine that helps return your body to its normal balance of nutrients and water. It is found at pharmacies and retail stores. ? Drink plenty of fluids, such as water, ice chips, diluted fruit juice, and low-calorie sports drinks. You can drink milk also, if desired. ? Avoid drinking fluids that contain a lot of sugar or caffeine, such as energy drinks, sports drinks, and soda. ? Eat bland, sada-ij-sikxaz foods in small amounts as you are able. These foods include bananas, applesauce, rice, lean meats, toast, and crackers. ? Avoid alcohol. ? Avoid spicy or fatty foods. Medicines ? Take nvsn-cxh-ukrbpws and prescription medicines only as told by your health care (more content not included)... Normal [facility] ED Patient Summaryon 022 ED Patient Summary [place] [id number] Patient Discharge Instructions Person Information Name: SANDY KELLEY Age: 20 Years Arrival Date: 06/06/2021 18:11:46 Discharge Diagnosis: 1:Hypokalemia; Diarrhea, unspecified; Vomiting and diarrhea Primary Care Physician: Digna Sweeney MD Provider Information Primary Provider: Alfredito Serrato DO Advanced Pyrotechnician:None The exam and treatment you received in the Emergency Department were for an urgent problem and are not intended as complete care. It is important that you follow up with a doctor, nurse practitioner, or physician?s operating room assistant for ongoing care. If your symptoms become worse or you do not improve as expected and you are unable to reach your usual health care provider, you should return to the Emergency Department. We are available 24 hours a day. SANDY KELLEY has been given the following list of patient education materials, prescriptions and follow-up instructions: Follow-up Instructions: With: Address: When: Digna Sweeney [facility], [address] [place] [phone] Business (1) In 3 days 06/09/2021 Comments: Return to the emergency room if you develop abdominal pain, vomiting recurs or any new symptoms. In the event that this physician does not participate in your insurance network, please consult with your insurance company to find a nearby participating provider. Patient Education Materials: Hypokalemia; Diarrhea, Adult; Nausea and Vomiting, Adult A MESSAGE TO ALL PATIENTS REGARDING OPIOIDS PRESCRIPTION OPIOIDS: WHAT YOU NEED TO KNOW Prescription opioids can be used to help relieve vxvwysdw-lh-pguljw pain and are often prescribed following a surgery or injury, or for certain health conditions. These medications can be an important part of the treatment but also come with serious risks. It is important to work with your healthcare provider to make sure you are getting the safest, most effective care. WHAT ARE THE RISKS AND SIDE EFFECTS OF OPIOID USE? Prescription opioids carry serious risks of addiction and overdose, especially with prolonged use. An opioid overdose, often marked by slowed breathing, can cause sudden . The use of prescription opioids can have a number of side effects as well, even when taken as directed: ? Tolerance?meaning you might need to take more of the medication for the same pain relief ? Physical dependence?meaning you have symptoms of withdrawal when a medication is stopped ? Increased sensitivity to pain ? Constipation ? Nausea, vomiting, and dry mouth ? Sleepiness and dizziness ? Confusion ? Depression ? Low levels of testosterone that can result in lower sex drive, energy, and strength ? Itching and sweating RISKS ARE GREATER WITH: ? History of drug misuse, substance use disorder, or overdose ? Mental health conditions (such as depression or anxiety) ? Sleep apnea ? Older age (65 years and older) ? Avoid alcohol while taking prescription opioids. Also, unless specifically advised by your health care provider, medications to avoid include: ? Benzodiazepines (such as Xanax or Valium) ? Muscle relaxants (such as Soma or Flexeril) ? Hypnotics (such as Ambien or Lunesta) ? Other prescription opioids KNOW YOUR OPTIONS Talk to your health care provider about ways to manage your pain that don?t involve prescription opioids. Some of these options may actually work better and have fewer risks and side effects. Options may include: ? Pain relievers such as acetaminophen, ibuprofen, and naproxen ? Some medication that are also used for depression or seizures ? Physical therapy and exercise ? Cognitive behavioral therapy, a psychological, goal-directed approach, in which patients learn how to modify physical, behavioral, and emotional triggers of pain and stress. IF YOU ARE PRESCRIBED OPIOIDS FOR PAIN: ? Never take opioids in greater amounts or more often than prescribed. ? Follow up with your primary health care provider. o Work together to create a plan on how to manage your pain. o Talk about ways to help manage your pain that don?t involve prescription opioids. o Talk about any and all concerns and side effects. ? Help prevent misuse and abuse o Never sell or share prescription opioids. o Never use another person?s prescription opioids. ? Store prescription opioids in a secure place and out of reach of others (this may include visitors, children, friends, and family). ? Safely dispose of unused prescription opioids: Find your community drug take-back program or your pharmacy mail-back program, or flush them down the toilet, following guidance from the Food and Drug Administration (www.fda.gov/Drugs/R esourcesForYou). ? Visit www.cdc.gov/drugover dose to learn about the risks of opioids abuse and overdose. ? If you bel (more content not included)... Normal [facility] HEMATOLOGYOrdered By: SYSTEM SYSTEM on 06-06-2021 Basophils/100 WBC (Bld) 0.5 % Normal 0.0 - 2.0 % [facility] HemeAutoSS Basophils/Leukocytes Auto (Bld) [Pure # fraction] 0.0 E9/L Normal 0.0 - 0.2 E9/L [facility] HemeAutoSS Eosinophils/100 WBC (Bld) 0.5 % Normal 0.0 - 8.0 % [facility] HemeAutoSS Eosinophils/Leukocyte s Auto (Bld) [Pure # fraction] 0.0 E9/L Normal 0.0 - 0.5 E9/L [facility] HemeAutoSS Lymphocytes/100 WBC (Bld) 18.8 % Normal 14.0 - 50.0 % [facility] HemeAutoSS Lymphocytes/Leukocyte s Auto (Bld) [Pure # fraction] 1.8 E9/L Normal 1.0 - 4.0 E9/L [facility] HemeAutoSS Monocytes/100 WBC (Bld) 7.4 % Normal 4.0 - 14.0 % [facility] HemeAutoSS Monocytes/Leukocytes Auto (Bld) [Pure # fraction] 0.7 E9/L Normal 0.2 - 1.0 E9/L [facility] HemeAutoSS Neutrophils/100 WBC (Bld) 72.8 % Normal 36.0 - 75.0 % [facility] HemeAutoSS Neutrophils/Leukocyte s Auto (Bld) [Pure # fraction] 7.1 E9/L Normal 2.0 - 7.5 E9/L [facility] HemeAutoSS HEMATOLOGYOrdered By: Amy pillai on 06-06-2021 Erythrocyte distribution width (RBC) [Ratio] 13.2 % Normal 10.9 - 14.2 % [facility] HemeAutoSS Hematocrit (Bld) [Volume fraction] 41.3 % Normal 34.0 - 46.0 % [facility] HemeAutoSS Hemoglobin (Bld) [Mass/Vol] 13.8 g/dL Normal 12.0 - 16.0 gm/dL [facility] HemeAutoSS MCH (RBC) [Entitic mass] 27.1 pg Normal 27.0 - 34.0 pg [facility] HemeAutoSS MCHC (RBC) [Mass/Vol] 33.4 g/dL Normal 31.4 - 36.0 gm/dL [facility] HemeAutoSS MCV (RBC) [Entitic vol] 81.2 fL Normal 80.0 - 100.0 fL [facility] HemeAutoSS Platelet mean volume (Bld) [Entitic vol] 10.3 fL Normal 6.4 - 10.8 fL [facility] HemeAutoSS Platelets (Bld) [#/Vol] 230.0 E9/L Normal 150.0 - 500.0 E9/L [facility] HemeAutoSS RBC (Bld) [#/Vol] 5.1 E12/L Normal 4.3 - 5.9 E12/L [facility] HemeAutoSS WBC corrected for nucl RBC Auto (Bld) [#/Vol] 9.7 E9/L Normal 4.0 - 11.0 E9/L [facility] HemeAutoSS Hep Func Panelon 06-06-2021 Albumin [Mass/Vol] 4.2 g/dL Normal 3.3-5.0 [facility] Comment on above: Performed By: #### 2 [id number], 5171352, [id number], 5168820, 90031360, 2790624, 2735192 #### [facility] [address] [place] [address] Albumin/Globulin (S) [Mass conc ratio] 1.2 Normal 1.1-2.2 [facility] Comment on above: Performed By: #### 2 500932, 1672139, 51702277, 3101703, 87005165, 0372330, 1117192 #### [facility] [address] [place] [address] ALP [Catalytic activity/Vol] 66 Int._Unit/L Normal 21-98 [facility] Comment on above: Performed By: #### 2 343803, 8770631, 92281155, 6450125, 75882531, 6469198, 1108953 #### [facility] [address] [place] [address] ALT No additional P-5'-P [Catalytic activity/Vol] 23 Int._Unit/L Normal 6-46 [facility] Comment on above: Performed By: #### 2 080412, 2376868, 25138852, 6944504, 59033895, 2087958, 8172649 #### [facility] [address] [place] [address] AST [Catalytic activity/Vol] 18 Int._Unit/L Normal 5-43 [facility] Comment on above: Performed By: #### 2 438910, 6404882, 28439523, 0505448, 59748676, 1375958, 8969276 #### [facility] [address] [place] [address] Bilirubin [Mass/Vol] 1.0 mg/dL Normal 0.0-1.1 [facility] Comment on above: Performed By: #### 2 595163, 5674104, 99632135, 6676227, 27122072, 9960699, 9229591 #### [facility] [address] [place] [address] Bilirubin.direct [Mass/Vol] 0.1 mg/dL Normal 0.1-0.4 [facility] Comment on above: Performed By: #### 2 901713, 0367088, 20117348, 9837935, 65130399, 4152788, 8906938 #### [facility] [address] [place] [address] Bilirubin.indirect [Mass or moles/Vol] 0.9 mg/dL Normal 0.1-0.9 [facility] Comment on above: Performed By: #### 2 798205, 2607364, 99320068, 9171598, 75272369, 4751315, 7033801 #### [facility] [address] [place] [address] Globulin (S) [Mass/Vol] 3.6 g/dL Normal 1.4-4.0 [facility] Comment on above: Performed By: #### 2 759798, 4499530, 44139904, 8533006, 93081405, 5690505, 1971075 #### [facility] [address] [place] [address] Protein [Mass/Vol] 7.8 g/dL Normal 6.0-7.8 [facility] Comment on above: Performed By: #### 2 255406, 4454940, 62226839, 1415675, 84586961, 3494283, 3237719 #### [facility] [address] [place] [address] Lipase Levelon 06-06-2021 Lipase [Catalytic activity/Vol] 24 U/L Normal 13-58 [facility] Comment on above: Performed By: #### 2 840347, 0351535, 94321977, 8979797, 77579638, 8689661, 7402348 #### [facility] [address] [place] [address] SEROLOGYOrdered By: Kurtis salinasolashanon on 06-06-2021 Beta hCG Ql Negative (06/06/21 6:34 PM) Normal [facility] Man Sero UA With Cult Reflexon 2021 Bacteria LM Ql (Urine sed) TRACE Normal Trace [facility] Comment on above: Performed By: #### 1 [id number] ####[facility] [address] [place] [address] Bilirubin Ql (U) 1+ Abnormal Negative [facility] Comment on above: Performed By: #### 1 5057025 ####[facility] [address] [place] [address] Clarity (U) SL CLOUDY Invalid Interpretation Code [facility] Comment on above: Performed By: #### 1 [id number] ####[facility] [address] [place] [address] Color (U) DARK YELLO Invalid Interpretation Code [facility] Comment on above: Performed By: #### 1 1187643 ####[facility] [address] [place] [address] Epithelial cells.squamous LM.HPF (Urine sed) [#/Area] 5-8 Normal 0-2 [facility] Comment on above: Performed By: #### 1 [id number] ####[facility] [address] [place] [address] Glucose Test strip (U) [Mass/Vol] Negative Normal Negative [facility] Comment on above: Performed By: #### 1 [id number] ####[facility] [address] [place] [address] Hemoglobin Ql (U) 3+ Abnormal Negative [facility] Comment on above: Performed By: #### 1 4554696 ####[facility] [address] [place] [address] Ketones (U) [Mass/Vol] 1+ Abnormal Negative [facility] Comment on above: Performed By: #### 1 2623184 ####[facility] [address] [place] [address] Paauilo.plasma/Lithiu m.RBC (Bld) [Mass ratio] 4-20 Normal 0-3 [facility] Comment on above: Performed By: #### 1 [id number] ####[address] [address] Mucus Ql (Urine sed) 2+ Normal [facility] Comment on above: Performed By: #### 1 6531459 ####[address] [address] Nitrite Ql (U) Negative Normal Negative [facility] Comment on above: Performed By: #### 1 5783680 ####[address] [address] pH (U) 6.0 [pH] Invalid Interpretation Code 5.0-9.0 [facility] Comment on above: Performed By: #### 1 8511075 ####[address] [address] Protein (U) [Mass/Vol] TRACE Abnormal Negative [facility] Comment on above: Performed By: #### 1 8204086 ####[address] [address] Specific gravity (U) [Rel density] 1.025 Invalid Interpretation Code 1.005-1.030 [facility] Comment on above: Performed By: #### 1 [id number] ####[address] [address] Type of Urine collection method Clean Catch Normal [facility] Comment on above: Performed By: #### 1 [id number] ####[address] [address] Urobilinogen Qn (U) 0.2 {Kim'U}/dL Normal 0.0-1.0 [facility] Comment on above: Performed By: #### 1 6067542 ####[address] [address] WBC Auto Ql (U) Negative Normal Negative [facility] Comment on above: Performed By: #### 1 [id number] ####[facility] [address] [place] [address] WBC LM.HPF (Urine sed) [#/Area] 0-5 Normal 0-5 [facility] Comment on above: Performed By: #### 1 7233355 ####[facility] [address] [place] [address] URINALYSISOrdered By: Kurtis Cohen on 06-06-2021 Bacteria LM Ql (Urine sed) Trace /HPF Normal Trace/HPF [facility] UA Auto SS Bilirubin Ql (U) 1+ *ABN* (06/06/21 7:20 PM) Invalid Interpretation Code Negative [facility] UA Auto SS Clarity (U) SL CLOUDY Invalid Interpretation Code [facility] UA Auto SS Color (U) DARK YELLO Invalid Interpretation Code [facility] UA Auto SS Epithelial cells.squamous LM.HPF (Urine sed) [#/Area] 5-8 /HPF Normal 0-2/HPF [facility] UA Aut o SS Glucose Test strip (U) [Mass/Vol] Negative (06/06/21 7:20 PM) Normal Negative [facility] UA Auto SS Hemoglobin Ql (U) 3+ *ABN* (06/06/21 7:20 PM) Invalid Interpretation Code Negative [facility] UA Auto SS Ketones (U) [Mass/Vol] 1+ *ABN* (06/06/21 7:20 PM) Invalid Interpretation Code Negative [facility] UA Auto SS Paauilo.plasma/Lithiu m.RBC (Bld) [Mass ratio] 4-20 /HPF Normal 0-3/HPF [facility] UA Auto SS Mucus Ql (Urine sed) 2+ (06/06/21 7:20 PM) Normal [facility] UA Auto SS Nitrite Ql (U) Negative (06/06/21 7:20 PM) Normal Negative [facility] UA Auto SS pH (U) 6.0 *NA* (06/06/21 7:20 PM) Invalid Interpretation Code 5.0 - 9.0 [facility] UA Auto SS Protein (U) [Mass/Vol] Trace *ABN* (06/06/21 7:20 PM) Invalid Interpretation Code Negative [facility] UA Auto SS Specific gravity (U) [Rel density] 1.025 *NA* (06/06/21 7:20 PM) Invalid Interpretation Code 1.005 - 1.030 [facility] UA Auto SS UA Spec Desc Clean Catch (06/06/21 7:20 PM) Normal [facility] UA Auto SS Urobilinogen Qn (U) 0.4300979 {Kim'U}/dL Normal 0.0 - 1.0 EU/dL [facility] UA Auto SS WBC Auto Ql (U) Negative (06/06/21 7:20 PM) Normal Negative [facility] UA Auto SS WBC LM.HPF (Urine sed) [#/Area] 0-5 /HPF Normal 0-5/HPF [facility] UA Auto SS eGFRon 06-06-2021 GFR/1.73 sq M.predicted among blacks MDRD (S/P/Bld) [Vol rate/Area] mL/min/{1.73_m2} Normal >=59 [facility] Comment on above: Order Comment: Order added by Discern Expert. Result Comment: eGFR is race adjusted. AA=. Performed By: #### 2 929151, 0380538, 23719914, 3464463, 22954738, 3005804, 8061320 #### [facility] [address] [place] [address] GFR/1.73 sq M.predicted among non-blacks MDRD (S/P/Bld) [Vol rate/Area] mL/min/{1.73_m2} Normal >=59 [facility] Comment on above: Order Comment: Order added by Discern Expert. Result Comment: Sprayer Machine tim kidney disease could be indicated at eGFR's of less than 60 mL/min/1.73m2. Kidney failure is indicated at less than 15 mL/min/1.73m2. Performed By: #### 2 735318, 3213564, 42199584, 5835293, 60342850, 9602529, 2004402 #### [facility] [address] [place] [address] Vital Signs Date Time Vital Sign Value Performing Clinician Kelly rowan 06-06-2021 21:00-0400 Blood Pressure Location Alfredito Sheffield [facility] 06-06-2021 21:00-0400 Diastolic blood pressure 95 mm[Hg] Alfredito Sheffield [facility] 06-06-2021 21:00-0400 Heart rate 85 /min Alfredito Boswelle [facility] 06-06-2021 21:00-0400 Mean blood pressure 107 mm[Hg] Alfredito Boswelle [facility] 06-06-2021 21:00-0400 Respiratory rate 16 /min Alfredito Boswelle [facility] 06-06-2021 21:00-0400 SaO2% (BldA) [Mass fraction] 99 % Alfredito Boswelle [facility] 06-06-2021 21:00-0400 Systolic blood pressure 130 mm[Hg] Alfredito Boswelle [facility] 06-06-2021 20:00-0400 Blood Pressure Location Alfredito Boswelle [facility] 06-06-2021 20:00-0400 Diastolic blood pressure 70 mm[Hg] Alfredito Boswelle [facility] 06-06-2021 20:00-0400 Heart rate 82 /min Alfredito Boswelle [facility] 06-06-2021 20:00-0400 Mean blood pressure 84 mm[Hg] Alfredito Boswelle [facility] 06-06-2021 20:00-0400 SaO2% (BldA) [Mass fraction] 98 % Alfredito Boswelle [facility] 06-06-2021 20:00-0400 Systolic blood pressure 113 mm[Hg] Alfredito Boswelle [facility] 06-06-2021 19:00-0400 Blood Pressure Location Alfredito Boswelle [facility] 06-06-2021 19:00-0400 Diastolic blood pressure 67 mm[Hg] Alfredito Serrato [facility] 06-06-2021 19:00-0400 Mean blood pressure 80 mm[Hg] Alfredito Serrato [facility] 06-06-2021 19:00-0400 SaO2% (BldA) [Mass fraction] 97 % Alfredito Serrato [facility] 06-06-2021 19:00-0400 Systolic blood pressure 106 mm[Hg] Alfredito Serrato [facility] 06-06-2021 18:15-0400 Body temperature 98.42 [degF] Alfredito Serrato [facility] 06-06-2021 18:15-0400 Heart rate 122 /min Alfredito Rojelio [facility] Encounters Encounter Date Encounter Type Care Provider Facility Start: 2023 End: 2023 ambulatory MATT BEAUCHAMP Not Available Start: 07-24-2022 End: 07-24-[address] DIGNA SWEENEY . Facility: Start: 06-06-2021 End: 06-06-2021 Emergency department patient visit Alfredito Sheffield [facility] Payers Date Payer Category Payer Unknown [id number] 2001 Unknown [id number] 1959 Unknown [id number] Social History Date Type Detail Facility Start: 06-06-2021 Tobacco smoking status Light t obacco smoker (finding) [facility] Sex Assigned At Female [facility] Hospital Discharge instructions 06-06-2021 Note Date & Type Note Facility 06-06-2021 Hospital Discharg e instructions Patient Education 06/06/2021 21:03:06 Hypokalemia Hypokalemia Hypokalemia means that the amount of potassium in the blood is lower than normal. Potassium is a chemical (electrolyte) that helps regulate the amount of fluid in the body. It also stimulates muscle tightening (contraction) and helps nerves work properly. Normally, most of the body's potassium is inside cells, and only a very small amount is in the blood. Because the amount in the blood is so small, minor changes to potassium levels in the blood can be life-threatening. What are the causes? This condition may be caused by: Antibiotic medicine. Diarrhea or vomiting. Taking too much of a medicine that helps you have a bowel movement (laxative) can cause diarrhea and lead to hypokalemia. Chronic kidney disease (CKD). Medicines that help the body get rid of excess fluid (diuretics). Eating disorders, such as bulimia. Low magnesium levels in the body. Sweating a lot. What are the signs or symptoms? Symptoms of this condition include: Weakness. Constipation. Fatigue. Muscle cramps. Mental confusion. Skipped heartbeats or irregular heartbeat (palpitations). Tingling or numbness. How is this diagnosed? This condition is diagnosed with a blood test. How is this treated? This condition may be treated by: Taking potassium supplements by mouth. Adjusting the medicines that you take. Eating more foods that contain a lot of potassium. If your potassium level is very low, you may need to get potassium through an IV and be monitored in the hospital. Follow these instructions at home: Take vyiv-aui-anaypyw and prescription medicines only as told by your health care provider. This includes vitamins and supplements. Eat a healthy diet. A healthy diet includes fresh fruits and vegetables, whole grains, healthy fats, and lean proteins. If instructed, eat more foods that contain a lot of potassium. This includes: ?Nuts, such as peanuts and pistachios. ?Seeds, such as sunflower seeds and pumpkin seeds. ?Peas, lentils, and beckford beans. ?Whole grain and bran cereals and breads. ?Fresh fruits and vegetables, such as apricots, avocado, bananas, cantaloupe, kiwi, oranges, tomatoes, asparagus, and potatoes. ?[place] juice. ?Tomato juice. ?Red meats. ?Yogurt. Keep all follow-up visits as told by your health care provider. This is important. Contact a health care provider if you: Have weakness that gets worse. Feel your heart pounding or racing. Vomit. Have diarrhea. Have diabetes (diabetes mellitus) and you have trouble keeping your blood sugar (glucose) in your target range. Get help right away if you: Have chest pain. Have shortness of breath. Have vomiting or diarrhea that lasts for more than 2 days. Faint. Summary Hypokalemia means that the amount of potassium in the blood is lower than normal. This condition is diagnosed with a blood test. Hypokalemia may be treated by taking potassium supplements, adjusting the medicines that you take, or eating more foods that are high in potassium. If your potassium level is very low, you may need to get potassium through an IV and be monitored in the hospital. This information is not intended to replace advice given to you by your health care provider. Make sure you discuss any questions you have with your health care provider. Document Released: 02/28/2006 Document Revised: 10/11/2018 Document Reviewed: 10/11/2018 [employer] Patient Education 2020 [employer]. 06/06/2021 21:03:06 Diarrhea, Adult Diarrhea, Adult Diarrhea is frequent loose and watery bowel movements. Diarrhea can make you feel weak and cause you to become dehydrated. Dehydration can make you tired and thirsty, cause you to have a dry mouth, and decrease how often you urinate. Diarrhea typically lasts 2 3 days. However, it can last longer if it is a sign of something more serious. It is important to treat your diarrhea as told by your health care provider. Follow these instructions at home: Eating and drinking Follow these recommendations as told by your health care provider: Take an oral rehydration solution (ORS). This is an lyly-uys-oomoxto medicine that helps return your body to its normal balance of nutrients and water. It is found at pharmacies and retail stores. Drink plenty of fluids, such as water, ice chips, diluted fruit juice, and low-calorie sports drinks. You can drink milk also, if desired. Avoid drinking fluids that contain a lot of sugar or caffeine, such as energy drinks, sports drinks, and soda. Eat bland, djbo-wb-wmverh foods in small amounts as you are able. These foods include bananas, applesauce, rice, lean meats, toast, and crackers. Avoid alcohol. Avoid spicy or fatty foods. Medicines Take cgkv-eyj-nkscsuf and prescription medicines only as told by your health care provider. If you were prescribed an antibiotic medicine, take it as told by your health care provider. Do not stop using the antibiotic even if you start to feel better. General instructions Wash your hands often using soap and water. If soap and water are not available, use a hand ditch tender. Others in the household should wash their hands as well. Hands should be washed: ?After using the toilet or changing a diaper. ?Before preparing, cooking, or serving food. ?While caring for a sick person or while visiting someone in a hospital. Drink enough fluid to keep your urine pale yellow. Rest at home while you recover. Watch your condition for any changes. Take a warm bath to relieve any burning or pain from frequent diarrhea episodes. Keep all follow-up visits as told by your health care provider. This is important. Contact a health care provider if: You have a fever. Your diarrhea gets worse. You have new symptoms. You cannot keep fluids down. You feel light-headed or dizzy. You have a headache. You have muscle cramps. Get help right away if: You have chest pain. You feel extremely weak or you faint. You have bloody or black stools or stools that look like tar. You have severe pain, cramping, or bloating in your abdomen. You have trouble breathing or you are breathing very quickly. Your heart is beating very quickly. Your skin feels cold and clammy. You feel confused. You have signs of dehydration, such as: ?Dark urine, very little urine, or no urine. ?Cracked lips. ?Dry mouth. ?Sunken eyes. ?Sleepiness. ?Weakness. Summary Diarrhea is frequent loose and watery bowel movements. Diarrhea can make you feel weak and cause you to become dehydrated. Drink enough fluids to keep your urine pale yellow. Make sure that you wash your hands after using the toilet. If soap and water are not available, use hand ditch tender. Contact a health care provider if your diarrhea gets worse or you have new symptoms. Get help right away if you have signs of dehydration. This information is not intended to replace advice given to you by your health care provider. Make sure you discuss any questions you have with your health care provider. Document Released: 02/18/2003 Document Revised: 07/17/2019 Document Reviewed: 08/04/2018 [employer] Patient Education 2020 [employer]. 06/06/2021 21:03:06 Nausea and Vomiting, Adult Nausea and Vomiting, Adult Nausea is the feeling that you have an upset stomach or that you are about to vomit. Vomiting is when stomach contents are thrown up and out of the mouth as a result of nausea. Vomiting can make you feel weak and cause you to become dehydrated. Dehydration can make you feel tired and thirsty, cause you to have a dry mouth, and decrease how often you urinate. Older adults and people with other diseases or a weak disease-fighting system (immune system) are at higher risk for dehydration. It is important to treat your nausea and vomiting as told by your health care provider. Follow these instructions at home: Watch your symptoms for any changes. Tell your health care provider about them. Follow these instructions to care for yourself at home. Eating and drinking Take an oral rehydration solution (ORS). This is a drink that is sold at pharmacies and retail stores. Drink clear fluids slowly and in small amounts as you are able. Clear fluids include water, ice chips, low-calorie sports drinks, and fruit juice that has water added (diluted fruit juice). Eat bland, llzj-cq-eodmbo foods in small amounts as you are able. These foods include bananas, applesauce, rice, lean meats, toast, and crackers. Avoid fluids that contain a lot of sugar or caffeine, such as energy drinks, sports drinks, and soda. Avoid alcohol. Avoid spicy or fatty foods. General instructions Take somz-rrt-kbzsxfk and prescription medicines only as told by your health care provider. Drink enough fluid to keep your urine pale yellow. Wash your hands often using soap and water. If soap and water are not available, use hand ditch tender. Make sure that all people in your household wash their hands well and often. Rest at home while you recover. Watch your condition for any changes. Breathe slowly and deeply when you feel nauseated. Keep all follow-up visits as told by your health care provider. This is important. Contact a health care provider if: Your symptoms get worse. You have new symptoms. You have a fever. You cannot drink fluids without vomiting. Your nausea does not go away after 2 days. You feel light-headed or dizzy. You have a headache. You have muscle cramps. You have a rash. You have pain while urinating. Get help right away if: You have pain in your chest, neck, arm, or jaw. You feel extremely weak or you faint. You have persistent vomiting. You have vomit that is bright red or looks like black coffee grounds. You have bloody or black stools or stools that look like tar. You have a severe headache, a stiff neck, or both. You have severe pain, cramping, or bloating in your abdomen. You have difficulty breathing, or you are breathing very quickly. Your heart is beating very quickly. Your skin feels cold and clammy. You feel confused. You have signs of dehydration, such as: ?Dark urine, very little urine, or no urine. ?Cracked lips. ?Dry mouth. ?Sunken eyes. ?Sleepiness. ?Weakness. These symptoms may represent a serious problem that is an emergency. Do not wait to see if the symptoms will go away. Get medical help right away. Call your local emergency services (911 in the [place] Do not drive yourself to the hospital. Summary Nausea is the feeling that you have an upset stomach or that you are about to vomit. As nausea gets worse, it can lead to vomiting. Vomiting can make you feel weak and cause you to become dehydrated. Follow instructions from your health care provider about eating and drinking to prevent dehydration. Take cjob-avo-rfjyzlt and prescription medicines only as told by your health care provider. Contact your health care provider if your symptoms get worse, or you have new symptoms. Keep all follow-up visits as told by your health care provider. This is important. This information is not intended to replace advice given to you by your health care provider. Make sure you discuss any questions you have with your health care provider. Document Released: 02/28/2006 Document Revised: 06/22/2019 Document Reviewed: 08/08/2018 [employer] Patient Education 2020 [employer] Follow Up Care 06/06/2021 18:13:49 With:Digna Sweeney Address: [address] [place] [phone] (1) When:06/09/2021 20:43:56 Comments:Return to the emergency room if you develop abdominal pain, vomiting recurs or any new symptoms. [facility] Evaluation + Plan note 06-06-2021 Note Date & Type Note Facility 06-06-2021 Evaluation + Plan note [facility] from: Title:ED Note Author:Alfredito Serrato DO Date:05/13 09/02 Diarrhea, unspecified (R19.7 : Diarrhea, unspecified) Vomiting and diarrhea (R11.10: Vomiting, unspecified) Orders: ondansetron, 4 mg = 2 mL, Injection, IV Push, Once, Stop date 06/06/21 18:23:00 EDT, STAT, Start date 06/06/21 18:23:00 EDT, 06/06/21 18:23:00 EDT Sodium Chloride 0.9% intravenous solution, 1,000 mL, Soln-IV, IV, Once, Stop date 06/06/21 18:23:00 EDT, STAT, Start date 06/06/21 18:23:00 EDT, Infuse over 61, minute(s) Basic Metabolic Panel Beta hCG Qual CBC w/ Auto Diff Hepatic Function Panel Lipase Level UA With Cult Reflex Addendum by Kassidy Burris As flaquita Johns on June 06, 2021 23:01:29 EDT Care of the patient was transitioned to nm upon shift change to follow-up with blood work and final disposition. She has presented with vomiting and diarrhea. More likely her symptoms are due to viral gastroenteritis. Blood work reviewed and showed hypokalemia replaced. More likely due to vomiting and diarrhea. Her nausea improved after Zofran and IV fluids. Will discharge patient home with prescription for Zofran and follow-up with her primary care. She is instructed to return to the emergency room if she develops abdominal pain, vomiting recurs or any new symptoms. [facility] Hospital course Narrative Note Date & Type Note Facility Hospital course Narrative No data available for this section [facility] Summary Purpose Family History No Family History Records FoundNo Family History Records FoundNo Family History Records Found Advance Directives No Advanced Directives Records FoundNo Advanced Directives Records FoundNo Advanced Directives Records Found Additional Source Comments INFORMATION SOURCE (unrecogn ized section and content) DATE CREATED AUTHOR 06/09/2021 [facility] DATE CREATED AUTHOR AUTHOR'S ORGANIZ ATION [facility]2022 [facility] DATE CREATED AUTHOR AUTHOR'S ORGANIZ ATION 07/23/[address] [facility] FOR RECORDS PERTAINING TO PATIENTS WHO ARE OR HAVE BEEN ENROLLED IN A CHEMICAL DEPENDENCY/SUBSTANCEABUSE PROGRAM, SOME INFORMATION MAY BE OMITTED. This clinical summary was aggregated from multiple sources. Caution should be exercised in using it in the provision of clinical care. This summary normalizes information from multiple sources, and as a consequence, information in this document may materially change the coding, format and clinical context of patient data. In addition, data may be omitted in some cases. CLINICAL DECISIONS SHOULD BE BASED ON THE PRIMARY CLINICAL RECORDS. [employer] provides no warranty or guarantee of the accuracy or completeness of information in this document.
== END 2023-08-05 07:32 | disposition home or self-care (01) ==
LOC: CARD 07:31
PROVIDERS: PCP Family Medicine; Visit Provider Family Medicine
DX: R55 Syncope and collapse (principal)
CPT/HCPCS: 95819

== ENCOUNTER 2023-08-11 11:43 | Outpatient (OUT) | payer OTHER, SELFPAY ==
--- OUTSIDE RECORDS SUMMARY | 2023-08-11 11:57 | XMS_ITS | CCD ---
Author Organization [facility] Care Team Providers Care Retail Special Event Associate Name Role Phone Digna Sweeney Primary Care Physician ABHISHEK .DR SAWYER Primary Care Unavailable MARIO .RACHANA Consulting UnavailKATARINA Fishman Attending Unavailable KATARINA MARTINEZ Admitting Unavailable SHAQUILLE NEIL Consulting Unavailable KATARINA MARTINEZ Consulting Unavailable MATT BEAUCHAMP Attending Unavailable Allergies Allergy Classification Reported Allergen(s) Allergy Type Date of Onset Reaction(s) Facility (1 source) Sulfamethoxazole / Trimethoprim Drug Allergy 3 [facility] Repository Medications Current Medications Medication Drug Class(es) [...] 07-24-2022 BASO # 0.1 103/ul Normal 0.0-0.1 [facility] Comment on above: Performed By: #### C BC #### [facility] [address] [address] [address] Juvenal Elizondo Basophils/100 WBC (Bld) 0.5 % Normal 0.2-2.0 [facility] Comment on above: Performed By: #### C BC #### [facility] [address] [address] [address] Juvenal Elizondo EO # 0.2 103/ul Normal 0.0-0.7 [facility] Comment on above: Performed By: #### C BC #### [facility] [address] [place] [address] Dr. Juvenal Elizondo Eosinophils/100 WBC (Bld) 2.3 % Normal 0.9-7.0 [facility] Comment on above: Performed By: #### C BC #### [facility] [address] [place] [address] Dr. Juvenal Elizondo Erythrocyte distribution width (RBC) [Ratio] 12.4 % Normal 11.0-15.0 [facility] Comment on above: Performed By: #### C BC #### [facility] [address] [place] [address] Dr. Juvenal Elizondo Hematocrit (Bld) [Volume fraction] 39.5 % Normal 36.0-48.0 [facility] Comment on above: Performed By: #### C BC #### [facility] [address] [place] [address] Dr. Juvenal Elizondo Hemoglobin (Bld) [Mass/Vol] 12.7 g/dL Normal 12.0-16.0 [facility] Comment on above: Performed By: #### C BC #### [facility] [address] [place] [address] Dr. Juvenal Elizondo IG # 0.02 10e3/ul Normal 0.00-0.03 [facility] Comment on above: Performed By: #### C BC #### [facility] [address] [place] [address] Dr. Juvenal Elizondo IG % 0.2 % Normal 0.0-0.5 [facility] Comment on above: Performed By: #### C BC #### [facility] [address] [place] [address] Dr. Juvenal Elizondo LYMPH # 3.0 103/ul Normal 1.2-3.8 [facility] Comment on above: Performed By: #### C BC #### [facility] [address] [place] [address] Dr. Juvenal Elizondo Lymphocytes/100 WBC (Bld) 31.2 % Normal 20.5-60.0 [facility] Comment on above: Performed By: #### C BC #### [facility] [address] [place] [address] Dr. Juvenal Elizondo MANUAL DIFF REQ NO Normal [facility] Comment on above: Performed By: #### C BC #### [facility] [address] [place] [address] Dr. Juvenal Elizondo MCH (RBC) [Entitic mass] 28.0 pg Normal 26.7-34.0 [facility] Comment on above: Performed By: #### C BC #### [facility] [address] [place] [address] Dr. Juvenal Elizondo MCHC (RBC) [Mass/Vol] 32.2 g/dL Normal 29.9-35.2 [facility] Comment on above: Performed By: #### C BC #### [facility] [address] [place] [address] Dr. Juvenal Elizondo MCV (RBC) [Entitic vol] 87.0 fL Normal 81.0-99.0 [facility] Comment on above: Performed By: #### C BC #### [facility] [address] [place] [address] Dr. Juvenal Elizondo MONO # 0.6 103/ul Normal 0.3-0.8 [facility] Comment on above: Performed By: #### C BC #### [facility] [address] [place] [address] Dr. Juvenal Elizondo Monocytes/100 WBC (Bld) 6.2 % Normal 1.7-12.0 [facility] Comment on above: Performed By: #### C BC #### [facility] [address] [place] [address] Dr. Juvenal Elizondo NEUT # 5.7 103/ul Normal 1.4-6.5 [facility] Comment on above: Performed By: #### C BC #### [facility] [address] [place] [address] Dr. Juvenal Elizondo Neutrophils/100 WBC (Bld) 59.6 % Normal 43.0-75.0 [facility] Comment on above: Performed By: #### C BC #### [facility] [address] [place] [address] Dr. Juvenal Elizondo Platelet mean volume (Bld) [Entitic vol] 11.9 fL Normal 9.5-13.5 [facility] Comment on above: Performed By: #### C BC #### [facility] [address] [place] [address] Dr. Juvenal Elizondo PLT 223 103/ul Normal 150-450 [facility] Comment on above: Performed By: #### C BC #### [facility] [address] [place] [address] Dr. Juvenal Elizondo RBC 4.54 106/ul Normal 4.20-5.40 [facility] Comment on above: Performed By: #### C BC #### [facility] [address] [place] [address] Dr. Juvenal Elizondo WBC 9.6 103/ul Normal 4.0-11.0 [facility] Comment on above: Performed By: #### C BC #### [facility] [address] [place], [place] [id number] Dr. Juvenal Elizondo CT ABD/PELV W CONon [...] by: SHAQUILLE NEIL Date: 2022-07-24 20:10 Normal [facility] ER URINE PROFILEon 3 Bilirubin Ql (U) Negative Normal NEGATIVE [facility] Comment on above: Performed By: #### Karey SANDSR, PREGU #### [facility] [address] [place] [address] Dr. Juvenal Elizondo Clarity (U) CLEAR Normal CLEAR [facility] Comment on above: Performed By: #### E SHAVONR, PREGU #### [facility] [address] [place] [address] Dr. Juvenal Elizondo Color (U) YELLOW Normal YELLOW [facility] Comment on above: Performed By: #### E RUR, PREGU #### [facility] [address] [place] [address] Dr. Juvenal VANCE A micrscopic examination will be performed if indicated. Normal [facility] Comment on above: Performed By: #### E RUR, PREGU #### [facility] [address] [place] [address] Dr. Juvenal Elizondo Glucose Ql (U) Negative Normal NEGATIVE [facility] Comment on above: Performed By: #### E RUR, PREGU #### [facility] [address] [place] [address] Dr. Juvenal Elizondo Hemoglobin Ql (U) Negative Normal NEGATIVE [facility] Comment on above: Performed By: #### E RUR, PREGU #### [facility] [address] [place] [address] Dr. Juvenal Elizondo Ketones Ql (U) TRACE Abnormal NEGATIVE [facility] Comment on above: Performed By: #### E RUR, PREGU #### [facility] [address] [place] [address] Dr. Juvenal Elizondo LEUKOCYTES Negative Normal NEGATIVE [facility] Comment on above: Performed By: #### E RUR, PREGU #### [facility] [address] [place] [address] Dr. Juvenal Elizondo Nitrite Ql (U) Negative Normal NEGATIVE [facility] Comment on above: Performed By: #### E RUR, PREGU #### [facility] [address] [place] [address] Dr. Juvenal Elizondo pH (U) 5.5 [pH] Normal 5-9 [facility] Comment on above: Performed By: #### E RUR, PREGU #### [facility] [address] [place] [address] Dr. Juvenal Elizondo SPEC GRAVITY >=1.030 Abnormal 1.005-<=1.025 [facility] Comment on above: Performed By: #### E RUR, PREGU #### [facility] [address] [place] [address] Dr. Juvenal Elizondo UA PROTEIN Negative Normal NEGATIVE/ TRACE [facility] Comment on above: Performed By: #### E RUR, PREGU #### [facility] [address] [place] [address] Dr. Juvenal Elizondo UR MICRO IND NOT INDICATED Normal [facility] Comment on above: Performed By: #### E RUR, PREGU #### [facility] [address] [place] [address] Dr. Juvenal Elizondo Urobilinogen Qn (U) 0.2 {Kim'U}/dL Normal 0.2 - 1. 0 [facility] Comment on above: Performed By: #### E RUR, PREGU #### [facility] [address] [place] [address] Dr. Juvenal Elizondo LACTATE/LACTIC ACIDon 2022 Lactate [Moles/Vol] 1.0 mmol/L Normal 0.4-2.0 [facility] Comment on above: Performed By: #### L ACT #### [facility] [address] [place] [address] Dr. Juvenal Elizondo LIPASEon 07-24-2022 Lipase [Catalytic activity/Vol] 49.0 U/L Critically low 73.0-393.0 [facility] Comment on above: Performed By: #### C MP, LIPA #### [facility] [address] [place] [address] Dr. Juvenal Elizondo URon 07-24-2022 , QUAL Negative Normal NEGATIVE [facility] Comment on above: Performed By: #### Karey JENSEN, PREGU #### [facility] [address] [place] [address] Dr. Juvenal Elizondo PROF 14(COMP METB)on 023 Albumin [Mass/Vol] 3.5 g/dL Normal 3.4-5.0 [facility] Comment on above: Performed By: #### C MP, LIPA #### [facility] [address] [place] [address] Dr. Juvenal Elizondo Albumin/Globulin [Mass ratio] 1.1 {ratio} Normal [facility] Comment on above: Performed By: #### C MP, LIPA #### [facility] [address] [place] [address] Dr. Juvenal Elizondo ALP [Catalytic activity/Vol] 86 U/L Normal 46-116 [facility] Comment on above: Performed By: #### C MP, LIPA #### [facility] [address] [place] [address] Dr. Juvenal Elizondo ALT [Catalytic activity/Vol] 18 U/L Normal 14-59 [facility] Comment on above: Performed By: #### C MP, LIPA #### [facility] [address] [place] [address] Dr. Juvenal Elizondo Anion gap [Moles/Vol] 12.7 mmol/L Normal [facility] Comment on above: Performed By: #### C MP, LIPA #### [facility] [address] [place] [address] Dr. Juvenal Elizondo AST [Catalytic activity/Vol] 10 U/L Critically low 15-37 [facility] Comment on above: Performed By: #### C MP, LIPA #### [facility] [address] [place] [address] Dr. Juvenal Elizondo Bilirubin [Mass/Vol] 0.2 mg/dL Normal 0.2-1.0 [facility] Comment on above: Performed By: #### C MP, LIPA #### [facility] [address] [place] [address] Dr. Juvenal Elizondo Calcium [Mass/Vol] 8.5 mg/dL Normal 8.5-10.1 [facility] Comment on above: Performed By: #### C MP, LIPA #### [facility] [address] [place] [address] Dr. Juvenal Elizondo Chloride [Moles/Vol] 106 mmol/L Normal 98-107 [facility] Comment on above: Performed By: #### C MP, LIPA #### [facility] [address] [place] [address] Dr. Juvenal Elizondo CO2 [Moles/Vol] 26.2 mmol/L Normal 21.0-32.0 [facility] Comment on above: Performed By: #### C MP, LIPA #### [facility] [address] [place] [address] Dr. Juvenal Elizondo Creatinine [Mass/Vol] 0.74 mg/dL Normal 0.55-1.02 [facility] Comment on above: Performed By: #### C MP, LIPA #### [facility] [address] [place] [address] Dr. Juvenal Elizondo EGFR-AF ETHIOPIAN >60 Normal >=60 [facility] Comment on above: Performed By: #### C MP, LIPA #### [facility] [address] [place] [address] Dr. Juvenal Elizondo EGFR-NON AF ETHIOPIAN >60 Normal >=60 [facility] Comment on above: Performed By: #### C MP, LIPA #### [facility] [address] [place] [address] Dr. Juvenal Elizondo Globulin (S) [Mass/Vol] 3.3 g/dL Normal [facility] Comment on above: Performed By: #### C MP, LIPA #### [facility] [address] [place] [address] Dr. Juvenal Elizondo Glucose [Mass/Vol] 92 mg/dL Normal 74-106 [facility] Comment on above: Performed By: #### C MP, LIPA #### [facility] [address] [place] [address] Dr. Juvenal Elizondo Potassium [Moles/Vol] 3.9 mmol/L Normal 3.5-5.1 [facility] Comment on above: Performed By: #### C MP, LIPA #### [facility] [address] [place] [address] Dr. Juvenal Elizondo Protein [Mass/Vol] 6.8 g/dL Normal 6.4-8.2 [facility] Comment on above: Performed By: #### C MP, LIPA #### [facility] [address] [place] [address] Dr. Juvenal Elizondo Sodium [Moles/Vol] 141 mmol/L Normal 136-145 [facility] Comment on above: Performed By: #### C MP, LIPA #### [facility] [address] [place] [address] Dr. Juvenal Elizondo Urea nitrogen [Mass/Vol] 6.0 mg/dL Critically low 7.0-18.0 [facility] Comment on above: Performed By: #### C MP, LIPA #### [facility] [address] [place] [address] Dr. Juvenal Elizondo Urea nitrogen/Creatinine [Mass ratio] 8.1 mg/mg Normal [facility] Comment on above: Performed By: #### C MP, LIPA #### [facility] [address] [place] [address] Dr. Juvenal Elizondo PROTIMEon 07-24-2022 INR Coag (PPP) [Relative time] 0.95 {INR} Normal [facility] Comment on above: Performed By: #### P TT, PT #### [facility] [address] [place] [address] Dr. Juvenal Elizondo INR GUIDELINES SEE BELOW Normal [facility] Comment on above: Result Comment: IRIS RED INR: 2.0 - 3.0 CONDITIONS NOT LISTED BELOW 2.5 - 3.5 FOR PROSTHETIC HEART VALVE REPLACEMENT 2.5 - 3.5 RECURRENT THROMBOSIS Performed By: #### P TT, PT #### [facility] [address] [place] [address] Dr. Juvenal Elizondo PT Coag (PPP) [Time] 10.1 s Normal 9.0-11.6 [facility] Comment on above: Performed By: #### P TT, PT #### [facility] [address] [place] [address] Dr. Juvenal Elizondo PTTon 07-24-2022 aPTT Coag (Bld) [Time] 29.2 s Normal 22.3-36.2 [facility] Comment on above: Performed By: #### P TT, PT #### [facility] [address] [place] [address] Dr. Juvenal Elizondo Coding Summary.on 06-08-2021 Coding Summary. CD:[id number] Gh0bWw+PGhlYWQ+PE1FV LFbE80ozYDhoA7AM4qEL Z3NCFGZDENUVA4GRM0yy WA5STzhH4BoqlCs NjlboOXdPY16BYk3GOD1 yUhzVOttpI7hyYNuL6y0 ZlJqBC63dL03KCdwFJIy QeQ3NgYfpdtcdOKc W5qxOxYagSCoNpa+PHRh YmxlIHdpZHRoPScxMDAl HhDqpBvmPY8sKi5pDFFe LWNvbGxhcHNlOiBj g4coPVRaSVhwFE6jlYgh X7CtaKL7IHBfi9h1Oe15 dHI+XNPfTKA7oFwpUQsb x153CmTxw7xjELM8 lVMoNLooBYN4P44uh9S9 SEUqEVPjTZF9qEE6vS5m sTnycnjzA8RqcSOmEvK3 CPO9zRCngY6dgTrz ysqgxC4uJze+O95LIA6G RPSBVW1ZMew1E3BlSvyv dHI+RC33XUKtAU55pUKv uFYzw8snhFq9FvRx NQGiADH7yFeaYNeqx8Xl NBYnK73dsORij7Z0TDOx dMwnnDXqXcNziCY7dY6w RDjnynlvt8wxhfel Zrpst1cnzx31lV44H84e KNjxEMMfOFT1ZLGdSYQl uWyext2ycY0fSt6+IDxj m1lta8flsVj3LoWy XZEfyhOjiHfaONT9i2Nm Ka71S8RmiTssu6EeEqk4 ii40sZHby7E4dNZ7BWbf RYUeoR1uBGsvDcF9 KCUjQsDwxM90eJVyAFdn Fu7pcEcnyMvnSD9cKZTe kuliVOMhxG1pBJNwlVSq iSgoNW5pIBZrlntc c085RaZbLSO6QTMssGCt A0NtkN3cZyZuGYRyIUEv R4HieLDuPXxtT133QMoq KqH1ABOjzzLzF4Pw YFDmwLfnAtW6h2W5Gc4O l2PtnzejPGL2WMhtNPBi GwF5IhTiFkK4J2QaAhd7 GVDwdHlvRZ1yX1Bs QQXwrdnhfhxerUP6DCJv CIMdoX15qKBoYDxzQz9v o1B4p426SNFvUTSrbW54 Ok3ovNdyUGLfzGDL qL7lxiqme9xbflwcJzPi PCEvBAi2ZFc1LEXndJgz SpZvKIR2TrU4WNF7vIGu bI3wrWidzqixuB0u Oyc+G30niW4eNON9KCD6 poxkOPMclmZbDU74WV19 U0NjLwttjBAkrNF+PGRp mlQzpVazLO3uRwBw e3xvb9VlHPyuG1WdVDWt VEauPgy2SRRnWAT6jGA8 rS2qHEQeEPbxu3I0jYD8 L7AoztYhad0mv1hx PGHmKGymK15cxFAmk7M6 HXBipCB1DFMksWxcBoZc tC68Mum+ACIghBqjn0Gx Wojrv4dgn5vtjTv9 IjMwJSIgdmFsaWduPSJ0 h0QjBc34Y50kGPhkIGAr KQYhNMChEKEwoQtloc1i oF8mMo3+PGNvbCB3 uMV9fM0qQLEpIwV7AJqu W283XjMocWErRupjp2cn m8mflCf2NoEyTMZetrQx eGlkTGI1k2HrYv65 C21fYYpsNIQwBFAdZEWb TJMqdHewjh3qjG3oMn5+ AY6tm0apfp64vW10rPZ+ KLAwEZO7bBfjKCri IIEzeY6vZPqqGqL8KUUp WtOcbR61rGEaTYrrFr7i wAwhpPqrKV0hVMBclcnt k108UhHfi0lhNCUj xWNpESonQLL0E25tw1U4 GJNtZNJnPMY6lXQ4kJ3w bGlnbjogbGVmdDsgdmVy rRuwOJhiVCprH480 IHRvcDsnPlBhdGllbnQg ScJwVKw8K1XtBes4LNKk sJpoGG1rjNGkLXjuNv6l qWxogTdfNJ4oWCCp ooqhv634MkBwz5jfPASx vOEwZUhlRCO7G65ya6R0 NTOtVLLiSOH1yXS9tG4k bGlnbjogbGVmdDsg ihGdzVabVUcoNVtkI283 IHRvcDsnPkJpcnRoIERh rOU3SV25SF84hDQjt1I3 uTP0R2LiVYUvjcjg sbewlWI8DEDeSRBjeB68 Mt2nfCylVk6lCOKeVIZ2 FJQcbPMjU8YqoE2bYdGt RUMlFWVhN7MmwVVd IVotI440FQejDtU9PEJh ghTfD9MoFEWslUglNdG8 i9K4Jk0DA5Q6LG65UG09 aCSdi0J7wEN4P1Jj NCPwkpxwonzciOL8PSLm QUJqiR39Gu9hbNbjOl9o TKWrKEE6QMDvbQLrS8Nb uX7eIsGcZLGdPEVv W6LzaMToNSsuJ043MUsm KqJ0VNHqpfCwE9FcKLWx uDdoBcZ1c9F8Rw3NMQm2 VO94YJ57nUIvj9C4 fRA3B0KnZUFpoqubygtw fKW1AZHoVYLqcL33Qd6h lBniLt6hRMBvBSO2SGMa nOSiA2KgeW4qPlNh EHVvRPVzI3ChrRGmSTpl O227WJsdFxU6BIOaohFu X2CdPXRlnQjkKvA7f2X8 Lm2VTXLcRR98DHB6 rBF8ZX68QR91X4AoKaba dGFibGU+PHRhYmxlIHdp ZHRoPScxMDAlJyBzdHls VZ0uEa5pBZPhSGZt sHqzcRMpReOen3vtNFGp VQpzPV6exMuwJ5BcaRE7 TPXvn0u2Yo45R76gA7Rd dXA+ELBysOD2eQX9 tC8wMuEpUnU4UMkvR475 HiJnpRIaYurly2zwl4uq vJc4FtH6LVWagwWlwEjg GHY2g9YxBv54S22l IHdpZHRoPSIxNSUiIHZh gDudsd9zjR3mJt8+PGNv qZR1kHR7mG1eTgIjVcX6 PHkaQ836XvImcHLf Tqgci5avw7sqqGi5YbRd PAYgurLyxOcpPFC1c1Fg Uy46A6TeuZxov0ZdIph1 yk88yBFir2T8aWZ5 N4TwFUDixgjxmMPgrHga KY0fCYWfnflySUGhqK6o XRAkZ2u4BgWzLyX0QAnu F7KffjY2FGVwvXHt ZDksRVK5A92zk3I3WHQj GRWcMZG7iNV1vA0ceJqi bjogbGVmdDsgdmVydGlj HEznZEhzS139UYQj tQoiJPMzeT3lRKIywNXf iHfiFW8rUSPiranzOoEM SUdIVCwgQVNITFlOTiBE BH32PD54zRWxx2I0 aDO2Q1TiRQWuunqfxfom rSR8LFPcDSPprL65sTSy LLnaVd0pm2S8k469KWMa OLNtxG10Jm1yzRhf NQFfhAZNkX2wmbbwe6ia tbseQyBcCYNbEHh5PQx7 ZAHlhFppClIjAZU6NfZ3 GRG6yECopS9epOjm sunkiF6pGxg+MDUvMTAv MjAwMjwvdGQ+PHRkIHN0 bOjuJYviHEFxrC1vWBHp L1n5ScBeQoA8RXah Z5IpUWWowqhsWc90vS8m OqSyRoU8JLylJ5FnppO9 FIOewKGaHClzDLM6W37i c5S8UAXxTFStKOR0 cPJ3qQ4luRusfwiciCTw dDsgdmVydGljYWwtYWxp E109VKCjsGecKzF1IDqt ISIbGW50VP73xAYj r6D8lEQ6V5TpWVJincee qabxtBD6VXGqVTMfoX59 yWIeOLhgBp3fh0A0y681 JDZnLWUcmX96Ir9h dFyhJHLpgSSNeB7jmfsq t9vhgnogDtStOWWlITb0 MUx2PGBnoPfrLqVdNIT8 FzS4ZKS2uVKanY3a hVapocvoeQ0xDbo+RmVt JHcjLF16UR04gUPyd7J3 sBU5N7SgRFTvctnmaqxg iPW2NUGjMTQroA21 mPEuDItqJx4hp8I1w845 MYJzLFBfmN14Gk1izQzv PHOqrJHHfY6edmlyh2ai cjogIzAwMDAwMDt0 KMe3DLVhfVwnStAhTHN0 PyO2MLN6nLJwrM3woHdd eglphA4eXfa+HQ6zqdsg ioJ8OI01EK83P0It PjwvdGFibGU+PHRhYmxl IHdpZHRoPScxMDAlJyBz zPtaID1gQu0eMWXsDGHa oGlzsBUzAzOfq8do NOSoNXvzPR8bzHxaS8Ok hGR9BCUwg6h5Ua48N21l H1MffMS+TIJchEP7oDF0 hD5dWyEaDuG1SHjl H600TiAzcYWqQmvez3id n0jawWf0XqHrYVQrihAp gDnaRUT9z3QlIh12M64a IHdpZHRoPSIyMCUi JCGpxHbgds7auH5bFq8+ EWVcfUW3dDJ2vM0zVmJp KiR9SHakF583FiWoaHSy UnpkG78vL8GtnYM+ ILPtFfg5ZPVdvWqfEU9p qWXjFSkzWe8rQBJ2HePs NkSvNUxhL8QkQFBiamha ezolhZS2TAJkNOQw aR72Qn2giPnxUw3gBZPw FKA1RTEgxVGcO2EkzA6s SpQiTLNcADBzS8VqtARx JGswA678FNxtUqN4 OQBeqtKaX9KzHRVleYds PkJ4t6S4Hg1MgJymmSIu JD0qAaGqTGe7S8LjOny5 RYZciLthKS3gtTUs BMrcPa8boMgllXvqBL3b UKQaczhrn967MgSkh5wy WZTftFYuRNmvGPS9V78z c4D4YZWhLACmHPZ5 zXY2lZ7djSgmjdxqtWHn dDsgdmVydGljYWwtYWxp X227FEQxhRoyFnKBVbi1 C5OrLxr8UNGogRjs OX6ueOUzMGdwLu2lhCvh oWepHP2sPHUmthzgj175 OlLuh8cvAHYpzDFcEWpa ODM7N57hz1C4GGZp QQWvEYJ5tZX7zV7wtJqq bjogbGVmdDsgdmVydGlj FKyrXXskF977UFDhvYmp Cl9CMnb3U9GhXdh8 MYDfoWdfOK5ipGGiFAmc Lv5rtAuiuTfyED7oUNVv himcc740DpKyh2xkIWBo bPHeOUavJWO5U25w u0O1BNKhHTZlOGV4mLR3 jZ8plEdufepiuLQwuCie lcHzgAehUBuhUYtzC204 IHRvcDsnPlBheWVy OjwvdGQ+ZJ29op16F1Pg EpwjItc9DEHcRVK9rSP8 gG3mPBNhGCxpn2U0tKU6 S9NmarGdkd1kl3iw YXBz (more content not included)... Normal [facility] Discharge Instructionson Discharge Instructions [id number] Normal [facility] ED Note-Physicianon 06-07-20 22 ED Note-Physician Basic [...] Care of the patient was transitioned to or upon shift change to follow-up with blood [...] vomiting recurs or any new symptoms. Normal [facility] Comment on above: Result Comment: Elec tronically Signed By: Praful Yi M.D.\.mata\Date and Time Signed: 06/06/21 23:02 EDT Auto Diffon 06-06-2021 Basophils/100 WBC (Bld) 0.5 % Normal 0.0-2.0 [facility] Comment on above: Order Comment: Order Added by Discern Expert. Performed By: #### 2 [id number], [id number], [id number], 7694354, 92195706, 7292502, 5055452 #### [facility] [address] [place] [address] Basophils/Leukocytes Auto (Bld) [Pure # fraction] 0.0 E9/L Normal 0.0-0.2 [facility] Comment on above: Order Comment: Order Added by Discern Expert. Performed By: #### 2 [id number], 9725547, 51775435, 8022931, 23075229, 5522519, 2389812 #### [facility] [address] [place] [address]58 Eosinophils/100 WBC (Bld) 0.5 % Normal 0.0-8.0 [facility] Comment on above: Order Comment: Order Added by Discern Expert. Performed By: #### 2 663955, 0322443, 96671722, 3882691, 70327379, 6770033, 1504457 #### [facility] [address] [place] [address] 00980 Eosinophils/Leukocyte s Auto (Bld) [Pure # fraction] 0.0 E9/L Normal 0.0-0.5 [facility] Comment on above: Order Comment: Order Added by Discern Expert. Performed By: #### 2 579590, 3078346, 89721194, 3374279, 65489730, 3408078, 2780500 #### [facility] [address] [place] [address] 18153 Lymphocytes/100 WBC (Bld) 18.8 % Normal 14.0-50.0 [facility] Comment on above: Order Comment: Order Added by Discern Expert. Performed By: #### 2 746035, 5115946, 88499353, 8211707, 14457096, 7149165, 3258969 #### [facility] [address] [place] [address] 95[address] Lymphocytes/Leukocyte s Auto (Bld) [Pure # fraction] 1.8 E9/L Normal 1.0-4.0 [facility] Comment on above: Order Comment: Order Added by Discern Expert. Performed By: #### 2 407635, 5035711, 45721033, 1326619, 78851366, 0144916, 5995302 #### [facility] [address] [place] [address] Monocytes/100 WBC (Bld) 7.4 % Normal 4.0-14.0 [facility] Comment on above: Order Comment: Order Added by Discern Expert. Performed By: #### 2 791779, 1294601, 61893233, 1504989, 15750601, 8140890, 4766597 #### [facility] [address] [place] [address] 16[address] Monocytes/Leukocytes Auto (Bld) [Pure # fraction] 0.7 E9/L Normal 0.2-1.0 [facility] Comment on above: Order Comment: Order Added by Discern Expert. Performed By: #### 2 480507, 1378576, 36966762, 8124883, 08043472, 7787751, 5106093 #### [facility] [address] [place] [address] 52928 Neutrophils/100 WBC (Bld) 72.8 % Normal 36.0-75.0 [facility] Comment on above: Order Comment: Order Added by Discern Expert. Performed By: #### 2 979504, 8105890, 55629295, 9071938, 28053630, 3211906, 8299985 #### [facility] [address] [place] [address] 68108 Neutrophils/Leukocyte s Auto (Bld) [Pure # fraction] 7.1 E9/L Normal 2.0-7.5 [facility] Comment on above: Order Comment: Order Added by Discern Expert. Performed By: #### 2 200661, 9382976, 42147503, 8525614, 14942607, 6272316, 9515285 #### [facility] [address] [place] [address] 53346 B hCG Qualon 06-06-2021 Beta hCG Ql Negative Normal [facility] Comment on above: Performed By: #### 2 070278, 9667330, 57035106, 9749336, 66361287, 8897540, 8958855 #### [facility] [address] [place] [address] BMPon 06-06-2021 Creatinine [Mass/Vol] 0.8 mg/dL Normal 0.5-1.3 [facility] Comment on above: Performed By: #### 2 712553, 2474355, 61461305, 6157264, 29811902, 3320188, 4892488 #### [facility] [address] [place] [address] Urea nitrogen [Mass/Vol] 11 mg/dL Normal 5-21 [facility] Comment on above: Performed By: #### 2 892629, 7318866, 37974526, 9498298, 98928585, 8039744, 7604532 #### [facility] [address] [place] [address] Urea nitrogen/Creatinine [Mass ratio] 14 No Units Normal 10-20 [facility] Comment on above: Performed By: #### 2 788393, 7212156, 97638709, 6555672, 99988482, 9049829, 5697622 #### [facility] [address] [place] [address] Anion gap [Moles/Vol] 14 mmol/L Normal 6-16 [facility] Comment on above: Performed By: #### 2 228057, 9070419, 55819675, 3703985, 44959035, 4759278, 9746311 #### [facility] [address] [place] [address] Calcium [Mass/Vol] 9.2 mg/dL Normal 8.9-11.1 [facility] Comment on above: Performed By: #### 2 771227, 3088792, 36330867, 4815842, 93802812, 9009157, 1940505 #### [facility] [address] [place] [address] Chloride [Moles/Vol] 104 mmol/L Normal 101-111 [facility] Comment on above: Performed By: #### 2 615480, 1966434, 81839687, 8304813, 16867159, 7221257, 0697787 #### [facility] [address] [place] [address] CO2 [Moles/Vol] 22 mmol/L Normal 21-31 [facility] Comment on above: Performed By: #### 2 799330, 0419906, 23521180, 5502710, 68947582, 9592823, 2296548 #### [facility] [address] [place] [address] Glucose [Mass/Vol] 96 mg/dL Normal 55-199 [facility] Comment on above: Result Comment: If t his glucose result represents a fasting glucose, interpretation should refer to the following reference range: 55-99 mg/dL Performed By: #### 2 652001, 1697866, 76341407, 4696182, 88018504, 5064066, 7944226 #### [facility] [address] [place] [address] Potassium [Moles/Vol] 3.1 mmol/L Low 3.5-5.3 [facility] Comment on above: Performed By: #### 2 644247, 8157195, 57330818, 4926350, 61703191, 0401886, 9277526 #### [facility] [address] [place] [address] Sodium [Moles/Vol] 137 mmol/L Normal 135-145 [facility] Comment on above: Performed By: #### 2 707075, 3507914, 44727800, 1155065, 67813517, 6730172, 3382005 #### [facility] [address] [place] [address] CBC w/ Auto Diffon Erythrocyte distribution width (RBC) [Ratio] 13.2 % Normal 10.9-14.2 [facility] Comment on above: Performed By: #### 2 229776, 0780225, 12722364, 9979314, 52951102, 6978555, 9791460 #### [facility] [address] [place] [address] Hematocrit (Bld) [Volume fraction] 41.3 % Normal 34.0-46.0 [facility] Comment on above: Performed By: #### 2 601109, 6862470, 96283163, 8344001, 85989859, 6539491, 7994978 #### [facility] [address] [place] [address] Hemoglobin (Bld) [Mass/Vol] 13.8 g/dL Normal 12.0-16.0 [facility] Comment on above: Performed By: #### 2 861549, 3285438, 76261135, 4059966, 12319031, 4889866, 6432865 #### [facility] [address] [place] [address] MCH (RBC) [Entitic mass] 27.1 pg Normal 27.0-34.0 [facility] Comment on above: Performed By: #### 2 837713, 3354451, 12827141, 8686870, 25821697, 9392038, 5620459 #### [facility] [address] [place] [address] MCHC (RBC) [Mass/Vol] 33.4 g/dL Normal 31.4-36.0 [facility] Comment on above: Performed By: #### 2 044275, 7211438, 79412958, 3258851, 70782422, 2898427, 2331743 #### [facility] [address] [place] [address] MCV (RBC) [Entitic vol] 81.2 fL Normal 80.0-100.0 [facility] Comment on above: Performed By: #### 2 399359, 1704853, 94273268, 8139851, 80480973, 4892149, 1751604 #### [facility] [address] [place] [address] Platelet mean volume (Bld) [Entitic vol] 10.3 fL Normal 6.4-10.8 [facility] Comment on above: Performed By: #### 2 939804, 6615325, 35872090, 0498735, 76401274, 9093585, 4495414 #### [facility] [address] [place] [address] Platelets (Bld) [#/Vol] 230.0 E9/L Normal 150.0-500.0 [facility] Comment on above: Performed By: #### 2 245394, 2809571, 37715405, 4985947, 75396323, 8921180, 6067653 #### [facility] [address] [place] [address] RBC (Bld) [#/Vol] 5.1 E12/L Normal 4.3-5.9 [facility] Comment on above: Performed By: #### 2 573103, 2303702, 54775922, 1408295, 23230091, 0459887, 3865969 #### [facility] [address] [place] [address] WBC corrected for nucl RBC Auto (Bld) [#/Vol] 9.7 E9/L Normal 4.0-11.0 [facility] Comment on above: Performed By: #### 2 901644, 7739840, 81601692, 3311539, 21430411, 3114406, 5493802 #### [facility] [address] [place] [address] CHEMISTRYOrdered By: SYSTEM SYSTEM on 06-06-2021 Albumin [...] rate/Area] mL/min/1.73 m2 Normal >=59mL/min/1. 73 m2 [facility] Chem S GFR/1.73 sq M.predicted among non-blacks MDRD (S/P/Bld) [Vol rate/Area] mL/min/1.73 m2 Normal >=59mL/min/1. 73 m2 [facility] Chem S Globulin (S) [Mass/Vol] 3.6 g/dL [...] Treatmenton 05-13 Consent for Treatment [id number] 20 [id number] #[id number] Normal [facility] ED Clinical Summaryon 2021 ED Clinical Summary [place] [id number] ED Clinical Summary Person Information Name: SANDY KELLEY [place] Age: 20 Years : 2000 Sex: Female Language: Jamaican PCP: Digna Sweeney MD Marital Status: Single Phone: [phone] Visit Id: Visit Reason: Nausea and vomiting; [...] 06/06/2021 21:03:05 06/06/2021 21:03:05 06/06/2021 21:03:05 ADDRESS: [address] [place] [id number] PHYS DOC NOTES: MEDICAL INFORMATION: Prescriptions Given: New Medications Printed Prescriptions ondansetron (Zofran ODT 4 mg Tab-Dis) 1 Tablets By Mouth every 6 hours as needed Nausea/Vomiting. Refills: 0. PATIENT EDUCATION INFORMATION: Instructions: Hypokalemia; Diarrhea, Adult; Nausea and Vomiting, Adult Follow up: With: Address: When: Digna Sweeney [address] [place] [address], [address] [place] [phone] Business (1) In 3 days 06/09/2021 Comments: Return to the emergency room if you develop abdominal pain, vomiting recurs or any new symptoms. DIAGNOSIS: 1:Hypokalemia; Diarrhea, unspecified; Vomiting and diarrhea Normal [facility] ED Patient Education Noteon 06-06-2021 ED Patient [...] Follow these instructions at home: ? Take uinr-ant-jqxgfia and prescription medicines only as told by [...] kiwi, oranges, tomatoes, asparagus, and potatoes. ? Paragould juice. ? Tomato juice. ? Red meats. [...] 02/28/2006 Document Revised: 10/11/2018 Document Reviewed: 10/11/2018 [employer] Patient Education ? 2019 [employer] Diarrhea, Adult Diarrhea is frequent loose [...] oral rehydration solution (ORS). This is an btnc-sll-efjkebo medicine that helps return your body to [...] sports drinks, and soda. ? Eat bland, hkzw-zn-amwkwn foods in small amounts as you are able. These foods include bananas, applesauce, rice, lean meats, toast, and crackers. ? Avoid alcohol. ? Avoid spicy or fatty foods. Medicines ? Take sern-ufe-yxyjeip and prescription medicines only as told by your health care (more content not included)... Normal [facility] ED Patient Summaryon 022 ED Patient Summary [place] [id number] Patient Discharge Instructions Person Information Name: SANDY KELLEY Age: 20 Years Arrival Date: 06/06/2021 18:11:46 Discharge Diagnosis: 1:Hypokalemia; Diarrhea, unspecified; Vomiting and diarrhea Primary Care Physician: Digna Sweeney MD Provider Information Primary Provider: Alfredito Serrato DO [employer] Work[employer] Wire Mesh:None The exam and treatment you received in the Emergency Department were for an urgent problem and are not intended as complete care. It is important that you follow up with a doctor, nurse practitioner, or physician?s technology assistant for ongoing care. If your symptoms [...] Follow-up Instructions: With: Address: When: Digna Sweeney [facility], [address] [place] [phone] Business (1) In 3 days 06/09/2021 Comments: [...] opioids can be used to help relieve duvbrukb-in-lvawpj pain and are often prescribed following a [...] you bel (more content not included)... Normal [facility] HEMATOLOGYOrdered By: SYSTEM SYSTEM on 06-06-2021 Basophils/100 WBC (Bld) 0.5 % Normal 0.0 - 2.0 % [facility] HemeAutoSS Basophils/Leukocytes Auto (Bld) [Pure # fraction] [...] 06-06-2021 Albumin [Mass/Vol] 4.2 g/dL Normal 3.3-5.0 [facility] Comment on above: Performed By: #### 2 273152, 7800551, 09979640, 8131341, 89883760, 0335095, 6346865 #### [facility] [address] [place] [address] Albumin/Globulin (S) [Mass conc ratio] 1.2 Normal 1.1-2.2 [facility] Comment on above: Performed By: #### 2 831522, 6230674, 56638273, 4051538, 71163416, 3234002, 4482363 #### [facility] [address] [place] [address] ALP [Catalytic activity/Vol] 66 Int._Unit/L Normal 21-98 [facility] Comment on above: Performed By: #### 2 954679, 2073270, 12792225, 5022874, 44759269, 3925032, 7300376 #### [facility] [address] [place] [address] ALT No additional P-5'-P [Catalytic activity/Vol] 23 Int._Unit/L Normal 6-46 [facility] Comment on above: Performed By: #### 2 026913, 3732405, 87449939, 1032055, 50247823, 4054247, 2567525 #### [facility] [address] [place] [address] AST [Catalytic activity/Vol] 18 Int._Unit/L Normal 5-43 [facility] Comment on above: Performed By: #### 2 138756, 2395474, 71009211, 7380637, 47670010, 4942876, 2444204 #### [facility] [address] [place] [address] Bilirubin [Mass/Vol] 1.0 mg/dL Normal 0.0-1.1 [facility] Comment on above: Performed By: #### 2 838126, 3149901, 55613868, 2861781, 20507899, 4907441, 5372727 #### [facility] [address] [place] [address] Bilirubin.direct [Mass/Vol] 0.1 mg/dL Normal 0.1-0.4 [facility] Comment on above: Performed By: #### 2 443134, 1109735, 90552726, 7942335, 68256626, 0777114, 0668893 #### [facility] [address] [place] [address]67 Bilirubin.indirect [Mass or moles/Vol] 0.9 mg/dL Normal 0.1-0.9 [facility] Comment on above: Performed By: #### 2 488589, 7185295, 68301117, 4467939, 04260750, 0353842, 6074819 #### [facility] [address] [place] [address] Globulin (S) [Mass/Vol] 3.6 g/dL Normal 1.4-4.0 [facility] Comment on above: Performed By: #### 2 262538, 5347957, 24414892, 3292819, 06255107, 1998000, 9440205 #### [facility] [address] [place] [address] Protein [Mass/Vol] 7.8 g/dL Normal 6.0-7.8 [facility] Comment on above: Performed By: #### 2 134597, 5022512, 00885170, 3727897, 49352794, 4037690, 1269452 #### [facility] [address] [place] [address]3284 Lipase Levelon 06-06-2021 Lipase [Catalytic activity/Vol] 24 U/L Normal 13-58 [facility] Comment on above: Performed By: #### 2 119808, 1672046, 59165412, 6320268, 99664721, 0290868, 0088132 #### [facility] [address] [place] [address]14 SEROLOGYOrdered By: Kurtis salinasolashanon on 06-06-2021 Beta hCG Ql Negative (06/06/21 6:34 PM) Normal [facility] Man Sero UA With Cult Reflexon 2021 Bacteria LM Ql (Urine sed) TRACE Normal Trace [facility] Comment on above: Performed By: #### 1 6371385 ####[facility] [address] [place] [address] Bilirubin Ql (U) 1+ Abnormal Negative [facility] Comment on above: Performed By: #### 1 8182501 ####[facility] [address] [place] [address] Clarity (U) SL CLOUDY Invalid Interpretation Code [facility] Comment on above: Performed By: #### 1 1421431 ####[facility] [address] [place] [address] Color (U) DARK YELLO Invalid Interpretation Code [facility] Comment on above: Performed By: #### 1 0505755 ####[facility] [address] [place] [address] Epithelial cells.squamous LM.HPF (Urine sed) [#/Area] 5-8 Normal 0-[address] [facility] Comment on above: Performed By: #### 1 9707833 ####[facility] [address] [place] [address] Glucose Test strip (U) [Mass/Vol] Negative Normal Negative [facility] Comment on above: Performed By: #### 1 4465794 ####[facility] [address] [place] [address] Hemoglobin Ql (U) 3+ Abnormal Negative [facility] Comment on above: Performed By: #### 1 3579843 ####[facility] [address] [place] [address] Ketones (U) [Mass/Vol] 1+ Abnormal Negative [facility] Comment on above: Performed By: #### 1 1492023 ####[facility] [address] [place] [address] [place].plasma/Lithiu m.RBC (Bld) [Mass ratio] 4-20 Normal 0-3 [facility] Comment on above: Performed By: #### 1 3823145 ####[address] [address] Mucus Ql (Urine sed) 2+ Normal [facility] Comment on above: Performed By: #### 1 2208966 ####[address] [address] Nitrite Ql (U) Negative Normal Negative [facility] Comment on above: Performed By: #### 1 7244498 ####[address] [address] pH (U) 6.0 [pH] Invalid Interpretation Code 5.0-9.0 [facility] Comment on above: Performed By: #### 1 7853103 ####[address] [address] Protein (U) [Mass/Vol] TRACE Abnormal Negative [facility] Comment on above: Performed By: #### 1 3615748 ####[address] [address] Specific gravity (U) [Rel density] 1.025 Invalid Interpretation Code 1.005-1.030 [facility] Comment on above: Performed By: #### 1 4546171 ####[address] [address] Type of Urine collection method Clean Catch Normal [facility] Comment on above: Performed By: #### 1 0931488 ####[address] [address] Urobilinogen Qn (U) 0.2 {Kim'U}/dL Normal 0.0-1.0 [facility] Comment on above: Performed By: #### 1 3026821 ####[address] [address] WBC Auto Ql (U) Negative Normal Negative [facility] Comment on above: Performed By: #### 1 7912889 ####[facility] [address] [place] [address] WBC LM.HPF (Urine sed) [#/Area] 0-5 Normal 0-5 [facility] Comment on above: Performed By: #### 1 2155210 ####[facility] [address] [place] [address] URINALYSISOrdered By: Kurtis Cohen on 06-06-2021 Bacteria [...] Interpretation Code Negative [facility] UA Auto SS [place].plasma/Lithiu m.RBC (Bld) [Mass ratio] 4-20 /HPF Normal [...] PM) Invalid Interpretation Code 1.005 - 1.030 [facility] UA Auto SS UA Spec Desc Clean Catch (06/06/21 7:20 PM) Normal [facility] UA Auto SS Urobilinogen Qn (U) 0.3283642 {Kim'U}/dL Normal 0.0 - 1.0 EU/dL [facility] UA Auto SS WBC Auto Ql (U) Negative (06/06/21 7:20 PM) Normal Negative [facility] UA Auto SS WBC LM.HPF (Urine sed) [#/Area] 0-5 /HPF Normal 0-5/HPF [facility] UA Auto SS eGFRon 06-06-2021 GFR/1.73 sq M.predicted among blacks MDRD (S/P/Bld) [Vol rate/Area] mL/min/{1.73_m2} Normal >=59 [facility] Comment on above: Order Comment: Order added by Discern Expert. Result Comment: eGFR is race adjusted. AA=. Performed By: #### 2 762420, 2474250, 96533763, 9183629, 32085707, 0497240, 2969027 #### [facility] [address] [place] [address] GFR/1.73 sq M.predicted among non-blacks MDRD (S/P/Bld) [Vol rate/Area] mL/min/{1.73_m2} Normal >=59 [facility] Comment on above: Order Comment: Order added by Discern Expert. Result Comment: Personal Banking Representative tim kidney disease could be indicated at eGFR's of less than 60 mL/min/1.73m2. Kidney failure is indicated at less than 15 mL/min/1.73m2. Performed By: #### 2 686334, 3490224, 53201314, 7574583, 07532373, 3102639, 4801203 #### [facility] [address] [place] [address] Vital Signs Date Time Vital Sign Value Performing Clinician Kelly rowan 06-06-2021 21:00-0400 Blood Pressure Location Alfredito Sheffield [facility] 06-06-2021 21:00-0400 Diastolic blood pressure 95 mm[Hg] Alfredito Sheffield [facility] 06-06-2021 21:00-0400 Heart rate 85 /min Alfredito Boswelle [facility] 06-06-2021 21:00-0400 Mean blood pressure 107 mm[Hg] Alfredito Boswelle [facility] 06-06-2021 21:00-0400 Respiratory rate 16 /min Alfredito Boswelle [facility] 06-06-2021 21:00-0400 SaO2% (BldA) [Mass fraction] 99 % Alfredito Boswelle [facility] 06-06-2021 21:00-0400 Systolic blood pressure 130 mm[Hg] Alfredito Boswelle [facility] 06-06-2021 20:00-0400 Blood Pressure Location Alfredito Boswelle [facility] 06-06-2021 20:00-0400 Diastolic blood pressure 70 mm[Hg] Alfredito Boswelle [facility] 06-06-2021 20:00-0400 Heart rate 82 /min Alfredito Boswelle [facility] 06-06-2021 20:00-0400 Mean blood pressure 84 mm[Hg] Alfredito Boswelle [facility] 06-06-2021 20:00-0400 SaO2% (BldA) [Mass fraction] 98 % Alfredito Boswelle [facility] 06-06-2021 20:00-0400 Systolic blood pressure 113 mm[Hg] Alfredito Boswelle [facility] 06-06-2021 19:00-0400 Blood Pressure Location Alfredito Boswelle [facility] 06-06-2021 19:00-0400 Diastolic blood pressure 67 mm[Hg] Alfredito Serrato [facility] 06-06-2021 19:00-0400 Mean blood pressure 80 mm[Hg] Alfredito Serrato [facility] 06-06-2021 19:00-0400 SaO2% (BldA) [Mass fraction] 97 % Alfredito Serrato [facility] 06-06-2021 19:00-0400 Systolic blood pressure 106 mm[Hg] Alfredito Serrato [facility] 06-06-2021 18:15-0400 Body temperature 98.42 [degF] Alfredito Serrato [facility] 06-06-2021 18:15-0400 Heart rate 122 /min Alfredito Rojelio [facility] Encounters Encounter Date Encounter Type Care Provider Facility Start: 2023 End: 2023 ambulatory MATT BEAUCHAMP Not Available Start: 07-24-2022 End: 07-24-[address] DIGNA SWEENEY . Facility: Start: 06-06-2021 End: 06-06-2021 Emergency department patient visit Alfredito Sheffield [facility] Payers Date Payer Category Payer Unknown [id number] 2000 Unknown [id number] 1958 Unknown [id number] Social History Date Type Detail Facility Start: 06-06-2021 Tobacco smoking status Light t obacco smoker (finding) [facility] Sex Assigned At Female [facility] Hospital Discharge instructions 06-06-2021 Note Date [...] hospital. Follow these instructions at home: Take opcd-drt-rcikxxz and prescription medicines only as told by [...] cantaloupe, kiwi, oranges, tomatoes, asparagus, and potatoes. ?Paragould juice. ?Tomato juice. ?Red meats. ?Yogurt. Keep [...] 02/28/2006 Document Revised: 10/11/2018 Document Reviewed: 10/11/2018 [employer] Patient Education 2020 [employer]. 06/06/2021 21:03:06 Diarrhea, Adult Diarrhea, Adult Diarrhea [...] oral rehydration solution (ORS). This is an iglf-evl-ydkjnjm medicine that helps return your body to [...] drinks, sports drinks, and soda. Eat bland, zukc-qf-pxzhqt foods in small amounts as you are able. These foods include bananas, applesauce, rice, lean meats, toast, and crackers. Avoid alcohol. Avoid spicy or fatty foods. Medicines Take zpeb-dpj-dhzqrzd and prescription medicines only as told by your health care provider. If you were prescribed an antibiotic medicine, take it as told by your health care provider. Do not stop using the antibiotic even if you start to feel better. General instructions Wash your hands often using soap and water. If soap and water are not available, use a hand insole presser. Others in the household should wash their [...] and water are not available, use hand insole presser. Contact a health care provider if your diarrhea gets worse or you have new symptoms. Get help right away if you have signs of dehydration. This information is not intended to replace advice given to you by your health care provider. Make sure you discuss any questions you have with your health care provider. Document Released: 02/18/2003 Document Revised: 07/17/2019 Document Reviewed: 08/04/2018 [employer] Patient Education 2020 [employer]. 06/06/2021 21:03:06 Nausea and Vomiting, Adult Nausea [...] water added (diluted fruit juice). Eat bland, vjjg-rg-phznql foods in small amounts as you are able. These foods include bananas, applesauce, rice, lean meats, toast, and crackers. Avoid fluids that contain a lot of sugar or caffeine, such as energy drinks, sports drinks, and soda. Avoid alcohol. Avoid spicy or fatty foods. General instructions Take paml-cwj-empjgar and prescription medicines only as told by your health care provider. Drink enough fluid to keep your urine pale yellow. Wash your hands often using soap and water. If soap and water are not available, use hand insole presser. Make sure that all people in your [...] eating and drinking to prevent dehydration. Take ojmr-cmn-nbzjnoh and prescription medicines only as told by [...] 02/28/2006 Document Revised: 06/22/2019 Document Reviewed: 08/08/2018 [employer] Patient Education 2020 [employer] Follow Up Care 06/06/2021 18:13:49 With:Digna Sweeney Address: [address] [place] [phone] Business (1) When:06/09/2021 20:43:56 Comments:Return to the emergency room if you develop abdominal pain, vomiting recurs or any new symptoms. [facility] Evaluation + Plan note 06-06-2021 Note [...] Care of the patient was transitioned to or upon shift change to follow-up with blood [...] pain, vomiting recurs or any new symptoms. [facility] Hospital course Narrative Note Date & Type Note Facility Hospital course Narrative No data available for this section [facility] Summary Purpose Family History No Family History Records FoundNo Family History Records FoundNo Family History Records Found Advance Directives No Advanced Directives Records FoundNo Advanced Directives Records FoundNo Advanced Directives Records Found Additional Source Comments INFORMATION SOURCE (unrecogn ized section and content) DATE CREATED AUTHOR 06/09/2021 [facility] DATE CREATED AUTHOR AUTHOR'S ORGANIZ ATION 07/28[facility]2022 [facility] DATE CREATED AUTHOR AUTHOR'S ORGANIZ ATION 07/23/2023 [facility] [place] FOR RECORDS PERTAINING TO PATIENTS WHO ARE [...] BE BASED ON THE PRIMARY CLINICAL RECORDS. [employer] provides no warranty or guarantee of the accuracy or completeness of information in this document.
== END 2023-08-11 11:44 | disposition home or self-care (01) ==
LOC: CARD 11:44
PROVIDERS: PCP Family Medicine; Visit Provider Family Medicine
DX: R55 Syncope and collapse (principal)
CPT/HCPCS: 93246